=== PATIENT | female | born 1955 | race Caucasian/White ===

== ENCOUNTER 2016-06-17 17:32 | Emergency (ER) | payer MEDICARE, OTHER ==
[~2016-06-17 17:32] MED LIST: /AMLO25TA PO; /CLOT10TR; /FENO48TA PO; /MOXI40TA PO; /PANT40TA PO; /PIME1CR30 TOP; /WARF2TA OR; /WARF2TA PO; ACET50TA PO; ACET65TA OR; ALBU0.084 INH; ALDA25TA2 PO; AMBI5TAB PO; ASPI1TAB PO; ASPI81CH PO; ASPI81TA7 PO; ATEN50TA2 PO; ATENPOW PO; ATOR1TAB18 PO; ATROVENT0.02%; BACL10TA2; BACT2CRE; BACTROBAN; CALC500C2 PO; CALC600T21 PO; CALCIUM/VITAMIN D; CALCTAB68 PO; CEFT500T; DOCU10CA PO; DRIS1CAP PO; DRIS50002 PO; DULC10SU9 PR; ERYTHROMYCI1; FENO145T PO; FERR325T PO; FURO20TA2 PO; FURO40TA2 PO; HYDROCORTISONE0.5 %; IMDU60TA PO; ISOS60TA2 PO; KEFL500C7 PO; LASI40TA PO; LISI10TA4 PO; LISI5TAB; MAG-TAB; MILKSUS PO; MIRA3350 PO; MOM30SS PO; MULTCAP PO; MULTIVIT; MULTLIQ7 PO; NITR0.4S; NITR4TASL SL; NORT25CA2 PO; NORV5TAB PO; OMEP20CA3 PO; OMEP40CA2 PO; OXYB5TA PO; OXYB5TAB5 PO; OXYBPOW PO; PARO10TA84 PO; PARO40TA PO; PAXI40TA; PAXI40TA2 PO; PROV90AE; SIMV80TA PO; SOMINEX; SPIR25TA2 PO; TENO50TA PO; TOPA25TA10 PO; TRIC145T19; VALT1TAB PO; VICO5TAB; VITAMIN D50000 UNT; WARF4TAB51 PO; ZEST10TA4 PO; ZOCO80TA; ZOCO80TA PO; ZOLP-189 PO; ZYLE0.5S OD; [UNRECOGNIZED DRUG - CODE] OU; [UNRECOGNIZED DRUG - CODE] PR
--- NOTE | 2016-06-17 20:21 | EDDOCDS ---
Nurse's Notes [facility] Name: Ngozi Tubbs Age: 60 yrs Sex: Female : 1955 Arrival Date: 06/17/2016 Time: 17:32 Bed 7 Private MD: Diagnosis: Adverse effect of unspecified antipsychotics and neuroleptics-visual hallucinations due to Topamax Presentation: 06/17 17:40 Presenting complaint: EMS states: upper and lower extremity tremors for "months if not kc3 year worsening today.". Mental Health Triage Level: Not applicable. Adult Sepsis Screening: Status: Patient is not a card services specialist or dependent. Transition of care: patient was not received from another setting of care. 17:40 Acuity: VENU Level 3 [facility] 17:40 Method Of Arrival: Ambulance [facility] 17:58 Adult Sepsis Screening: The patient does not have new or worsening altered mentation. kc3 Patient's respiratory rate is less than 22. Systolic blood pressure is greater than 100. Patient has a qSOFA score of 0- Negative Sepsis Screen. Suicide/Homicide risk assessment- the patient denies having any suicidal and/or homicidal ideations and does not present with any other emotional, behavioral or mental health complaints. Triage Assessment: 18:00 General: Appears in no apparent distress, comfortable, Behavior is appropriate for age, kc3 cooperative, Pt ambulated to restroom with walker with no distress and back to bed. . Pain: Denies pain. HIV screening NA for this visit Offered previously. Neurological: Level of Consciousness is awake, alert, obeys commands, Oriented to person, place, time, Reports chronic hand tremors worsening today. . Cardiovascular: Capillary refill < 3 seconds. Respiratory: Respiratory effort is even, unlabored. Derm: Skin is pink, warm & dry. Musculoskeletal: Circulation, motion, and sensation intact. Historical: - Allergies: Morphine (Vomit); - Home Meds: 1. nortriptyline 25 mg Oral cap daily 2. Vitamin D2 oral 1.25mg oral once wkly 3. spironolactone 12.5 mg Oral once daily 4. Lasix 40 mg Oral tab 1 tab once daily 5. Calcium + Vitamin D 600mg-400mg Oral 6. topiramate 25 mg oral tab 2 tabs 2 times per day 7. cyanocobalamin (vitamin B-12) 1,000 mcg/mL injection kit 1 mL once moly 8. ferrous sulfate 325 mg (65 mg iron) Oral cpER twice a day 9. oxybutynin chloride 5 mg Oral tab 1 tab 2 times per day 10. paroxetine HCl 50 mg Oral tab 1 tab once daily 11. Valtrex 500 mg Oral tab 1 tab three times a day 12. atorvastatin 80 mg oral tab 1 tab once daily 13. omeprazole 40 mg Oral cpDR 1 cap 2 times per day 14. isosorbide mononitrate 60 mg Oral Tb24 1 tab once daily 15. atenolol 50 mg Oral tab nightly 16. fenofibrate 145mg oral once daily 17. warfarin 2 mg Oral tab 1 tab once daily 18. thera tears every hour 19. Zylet 0.3-0.5 % ophthalmic drps 1 drop twice a day 20. aspirin 81 mg Oral TbEC 1 tab once daily 21. Oxygen 2 liters /min continuous 22. Tobramycin Opht as directed - PMHx: coronary atherosclerosis; Depression; GERD; hyperlipidemia; hypoxemia; Myocardial infarction; Osteoporosis; Pneumonia; seborrheic dermatitis; sleep apnea; Sleep Apnea w/o CPAP; Stroke; thrombosis of leg; - PSHx: laryngoplasty; Skin Graft; Knee surgery- Left; Left leg arterial embolectomy; thyroplasty; gastrostomy; - The history from nurses notes was reviewed: and I agree with what is documented. - Social history: Smoking status: Patient states former smoker of tobacco. No barriers to communication noted, The patient speaks fluent Hebrew, Speaks appropriately for age. - : The pt / caregiver states he / she is on anticoagulants: coumadin. Home medication list is obtained from pill bottles. - Exposure Risk Screening:: None identified. - Immunization history:: All immunizations up-to-date. - Family history: Not pertinent. - Social history:: the patient is a non-smoker, the patient does not drink alcohol. Screenin:54 Screening information is obtained from the patient. Fall risk: At risk due to gait jmk disturbance from trremors. Assistance ADL's: Requires assistance with housework, assistance is provided by Home Health Aides. Abuse/DV Screen: The patient / caregiver reports he/she is: not in a situation that causes fear, pain or injury. Nutritional screening: No deficits noted. Advance Directives: Currently, there is a health care proxy, talha acuna, daughter. There is no active DNR order. There is no living will. There is no Power of Workforce Planner. home support is adequate. Assessment: 18:01 General: See triage note. . kc3 18:43 General: Appears in no apparent distress, comfortable, Behavior is appropriate for age, kc3 cooperative, Pt resting on stretcher with no complaints at this time. . Neurological: Level of Consciousness is awake, alert, obeys commands, Oriented to person, place, time. Respiratory: Respiratory effort is even, unlabored, Respiratory pattern is regular, symmetrical. Derm: Skin is intact, is healthy with good turgor. 19:20 General: Appears in no apparent distress, comfortable, Behavior is appropriate for age, mgs cooperative. Pain: Denies pain. Neurological: Level of Consciousness is awake, alert, Oriented to person, place, time. Cardiovascular: Capillary refill < 3 seconds Heart tones S1 S2 present. Respiratory: Airway is patent Respiratory effort is even, unlabored, Respiratory pattern is regular, symmetrical. Derm: Skin is intact, is healthy with good turgor. 19:42 Adult Sepsis Screening: The patient does not have new or worsening altered mentation. mgs Patient's respiratory rate is less than 22. Systolic blood pressure is greater than 100. 19:43 Adult Sepsis Screening: Patient has a qSOFA score of 0- Negative Sepsis Screen. mgs 20:20 General: Appears in no apparent distress, Behavior is appropriate for age, cooperative. mgs Pain: Denies pain. Neurological: Level of Consciousness is awake, alert, Oriented to person, place, time. Cardiovascular: Capillary refill < 3 seconds Heart tones S1 S2 present. Respiratory: Airway is patent Respiratory effort is even, unlabored, Respiratory pattern is regular, symmetrical. Derm: Skin is intact, is healthy with good turgor. Vital Signs: 17:53 BP 126 / 76; Pulse 93; Resp 18; Temp 98.7(O); Pulse Ox 98% 2 lpm ; Weight 86.18 kg; jmk Height 5 ft. 6 in. (167.64 cm); 19:24 BP 123 / 72; Pulse 75; Resp 20; Temp 97.9(O); Pulse Ox 94% on 2 lpm NC; Pain 0/10; jmv 19:51 BP 119 / 62; Pulse 82; Resp 18; Temp 98.0(T); Pulse Ox 91% on R/A; Pain 0/10; franki 17:53 Body Mass Index 30.67 (86.18 kg, 167.64 cm) [facility] Vitals: 17:53 Log In Time N/A - ambulance arrival. [facility] ED Course: 17:33 Patient visited by Annamaria Galarza, Lift Slab Operator. deg 17:33 Patient moved to Waiting deg 17:34 Yessi Rosales RN is Primary Nurse. deg 17:34 Patient moved to 7 deg 17:42 Triage Initiated kc3 17:54 The patient / caregiver is instructed regarding the plan of care and ED course. jmk 18:34 Patient visited by Silke Yeh PCA. franki 19:07 Kody Burns MD is Attending Physician. pc 19:20 Patient visited by Goran Up RN. mgs 19:25 Patient visited by Maurizio Carrillo PCA. jmv 19:30 Patient visited by Kody Burns MD. pc 19:46 Myla Witt MD is Referral Physician. pc 19:51 Patient visited by Silke Yeh PCA. franki 20:12 Primary Nurse role handed off by Yessi Rosalse RN franki 20:19 Goran Up RN is Primary Nurse. mgs 20:19 No IV's were initiated during this patient's visit. No procedures done that require mgs assistance. Order Results: There are currently no results for this order. Outcome: 19:46 Discharge ordered by Provider. pc 20:19 Discharge Assessment: Patient awake, alert and oriented x 3. No cognitive and/or mgs functional deficits noted. Patient verbalized understanding of disposition instructions. patient administered narcotics - no. The following High Risk Discharge criteria are identified: None. Discharged to home via wheelchair. Condition: stable. Discharge instructions given to patient, Instructed on discharge instructions, follow up and referral plans. Demonstrated understanding of instructions, Pt was receptive of discharge instructions/ teaching. No special radiology studies were completed. Property sent home with patient. 20:21 Patient left the ED. mgs Signatures: Kody Burns MD MD pc Murray, Denise, Lift Slab Operator Unit deg [place] RN RN [facility] Silke Yeh PCA DOG TRAINER franki Goran Up RN RN mgs Yessi Rosales,HANNY RN kc3 Maurizio Carrillo, DOG TRAINER DOG TRAINER jmv MTDD
--- NOTE | 2016-06-17 20:21 | EDDOCDS ---
Physician Documentation [facility] Name: Ngozi Tubbs Age: 60 yrs Sex: Female : 1955 Arrival Date: 06/17/2016 Time: 17:32 Bed 7 Private MD: Disposition: 06/17 19:44 Critical Care: Critical care not applicable. pc Disposition: 06/17/16 19:46 Discharged to Home/Self Care. Impression: Adverse effect of unspecified antipsychotics and neuroleptics - visual hallucinations due to Topamax. - Condition is Stable. - Discharge Instructions: Psychosis. - Medication Reconciliation, Local Pharmacy Hours form. - Follow up: Myla Witt MD; When: Call to arrange an appointment; Reason: To establish care. - Problem is new. - Symptoms are unchanged. - Notes: You are to cut your Topamax (topirimate) down to 50mg once daily HPI: 19:31 This 60 yrs old Female presents to ER via Ambulance with complaints of pc "seeing things". 19:31 The history is obtained from the patient. For the past 2-3 days, she has started to see pc things that aren't there, such as complimenting her aid about her earrings when she was not wearing them, talking ot her aid and asking why she was using her computer when she wasn't actually there. She denies any headache but says she has felt very anxious and shaky since she started seeing things. She denies nay fevers or chills, cough, abd. pain or any other complaints. She does not know if she is on any new medications but was admitted for intractable migraines last week. (Her EMR shows she was started on Topamax). The patient has not experienced similar symptoms in the past. The patient has been recently been admitted at [facility]. Historical: - Allergies: Morphine (Vomit); - Home Meds: 1. nortriptyline 25 mg Oral cap daily 2. Vitamin D2 oral 1.25mg oral once wkly 3. spironolactone 12.5 mg Oral once daily 4. Lasix 40 mg Oral tab 1 tab once daily 5. Calcium + Vitamin D 600mg-400mg Oral 6. topiramate 25 mg oral tab 2 tabs 2 times per day 7. cyanocobalamin (vitamin B-12) 1,000 mcg/mL injection kit 1 mL once moly 8. ferrous sulfate 325 mg (65 mg iron) Oral cpER twice a day 9. oxybutynin chloride 5 mg Oral tab 1 tab 2 times per day 10. paroxetine HCl 50 mg Oral tab 1 tab once daily 11. Valtrex 500 mg Oral tab 1 tab three times a day 12. atorvastatin 80 mg oral tab 1 tab once daily 13. omeprazole 40 mg Oral cpDR 1 cap 2 times per day 14. isosorbide mononitrate 60 mg Oral Tb24 1 tab once daily 15. atenolol 50 mg Oral tab nightly 16. fenofibrate 145mg oral once daily 17. warfarin 2 mg Oral tab 1 tab once daily 18. thera tears every hour 19. Zylet 0.3-0.5 % ophthalmic drps 1 drop twice a day 20. aspirin 81 mg Oral TbEC 1 tab once daily 21. Oxygen 2 liters /min continuous 22. Tobramycin Opht as directed - PMHx: coronary atherosclerosis; Depression; GERD; hyperlipidemia; hypoxemia; Myocardial infarction; Osteoporosis; Pneumonia; seborrheic dermatitis; sleep apnea; Sleep Apnea w/o CPAP; Stroke; thrombosis of leg; - PSHx: laryngoplasty; Skin Graft; Knee surgery- Left; Left leg arterial embolectomy; thyroplasty; gastrostomy; - The history from nurses notes was reviewed: and I agree with what is documented. - Social history: Smoking status: Patient states former smoker of tobacco. No barriers to communication noted, The patient speaks fluent Australian, Speaks appropriately for age. - : The pt / caregiver states he / she is on anticoagulants: coumadin. Home medication list is obtained from pill bottles. - Exposure Risk Screening:: None identified. - Immunization history:: All immunizations up-to-date. - Family history: Not pertinent. - Social history:: the patient is a non-smoker, the patient does not drink alcohol. ROS: 19:31 All systems are negative except as listed. pc Exam: 19:31 General Appearance: no acute distress, alert. pc 19:31 EENT: normal eye inspection, ears, nose and throat normal, pharynx normal, mucous membranes moist 19:31 Neck: The exam reveals no acute abnormalities. ROM is normal and painless. No nuchal rigidity is noted.. 19:31 Respiratory: no respiratory distress, normal breath sounds. 19:31 CVS: regular pulse rate, regular rhythm, normal S1 and S2, no murmurs, strong peripheral pulses. 19:31 Abdomen: soft, non-tender, no organomegaly, normal bowel sounds. 19:31 Back: normal inspection. 19:31 Skin: skin color is normal, warm, dry. 19:31 Extremities: The extremities have a grossly normal appearance. 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 19:31 Psych: normal mood. Vital Signs: 17:53 BP 126 / 76; Pulse 93; Resp 18; Temp 98.7(O); Pulse Ox 98% 2 lpm ; Weight 86.18 kg / jmk 189.99 lbs; Height 5 ft. 6 in. (167.64 cm); 19:24 BP 123 / 72; Pulse 75; Resp 20; Temp 97.9(O); Pulse Ox 94% on 2 lpm NC; Pain 0/10; jmv 19:51 BP 119 / 62; Pulse 82; Resp 18; Temp 98.0(T); Pulse Ox 91% on R/A; Pain 0/10; franki 17:53 Body Mass Index 30.67 (86.18 kg, 167.64 cm) [facility] MDM: 19:31 Differential Diagnosis: visual hallucinations, anxiety suspect medication induced. pc Plan: d/w Neurology. 19:44 Data reviewed: old medical records, vital signs, nurses notes. Test interpretation: pc none. The patient has been re-examined and re-evaluated. There is no appreciated change of the patient's symptoms at this time. Physician consultation: Dr. Myla Witt MD was contacted at 19:44, regarding patient's condition, and advises the medications/treatment as provided. and agrees with the treatment provided and advises the discharge plans as outlined. Disposition: The historical points, examination findings, and any diagnostic results supporting the provided diagnosis, were discussed with the patient or legal guardian. The need for outpatient follow up with the provider listed on their discharge instructions was discussed. They were encouraged to return to [facility], or the nearest ED, if symptoms worsen/persist, or for any other questions/concerns. Signatures: Kody Burns MD MD pc Sheldon, Matthew, RN RN mgs Rosales,Yessi,RN RN kc3 MTDD
--- NOTE | 2016-06-19 21:21 | EDDOCDS ---
Physician Documentation [facility] Name: Ngozi Tubbs Age: 60 yrs Sex: Female : 1955 Arrival Date: 06/17/2016 Time: 17:32 Bed 7 Private MD: Disposition: 06/17 19:44 Critical Care: Critical care not applicable. pc Disposition: 06/17/16 19:46 Discharged to Home/Self Care. Impression: Adverse effect of unspecified antipsychotics and neuroleptics - visual hallucinations due to Topamax. - Condition is Stable. - Discharge Instructions: Psychosis. - Medication Reconciliation, Local Pharmacy Hours form. - Follow up: Myla Witt MD; When: Call to arrange an appointment; Reason: To establish care. - Problem is new. - Symptoms are unchanged. - Notes: You are to cut your Topamax (topirimate) down to 50mg once daily HPI: 19:31 This 60 yrs old Female presents to ER via Ambulance with complaints of pc "seeing things". 19:31 The history is obtained from the patient. For the past 2-3 days, she has started to see pc things that aren't there, such as complimenting her aid about her earrings when she was not wearing them, talking ot her aid and asking why she was using her computer when she wasn't actually there. She denies any headache but says she has felt very anxious and shaky since she started seeing things. She denies nay fevers or chills, cough, abd. pain or any other complaints. She does not know if she is on any new medications but was admitted for intractable migraines last week. (Her EMR shows she was started on Topamax). The patient has not experienced similar symptoms in the past. The patient has been recently been admitted at [facility]. Historical: - Allergies: Morphine (Vomit); - Home Meds: 1. nortriptyline 25 mg Oral cap daily 2. Vitamin D2 oral 1.25mg oral once wkly 3. spironolactone 12.5 mg Oral once daily 4. Lasix 40 mg Oral tab 1 tab once daily 5. Calcium + Vitamin D 600mg-400mg Oral 6. topiramate 25 mg oral tab 2 tabs 2 times per day 7. cyanocobalamin (vitamin B-12) 1,000 mcg/mL injection kit 1 mL once moly 8. ferrous sulfate 325 mg (65 mg iron) Oral cpER twice a day 9. oxybutynin chloride 5 mg Oral tab 1 tab 2 times per day 10. paroxetine HCl 50 mg Oral tab 1 tab once daily 11. Valtrex 500 mg Oral tab 1 tab three times a day 12. atorvastatin 80 mg oral tab 1 tab once daily 13. omeprazole 40 mg Oral cpDR 1 cap 2 times per day 14. isosorbide mononitrate 60 mg Oral Tb24 1 tab once daily 15. atenolol 50 mg Oral tab nightly 16. fenofibrate 145mg oral once daily 17. warfarin 2 mg Oral tab 1 tab once daily 18. thera tears every hour 19. Zylet 0.3-0.5 % ophthalmic drps 1 drop twice a day 20. aspirin 81 mg Oral TbEC 1 tab once daily 21. Oxygen 2 liters /min continuous 22. Tobramycin Opht as directed - PMHx: coronary atherosclerosis; Depression; GERD; hyperlipidemia; hypoxemia; Myocardial infarction; Osteoporosis; Pneumonia; seborrheic dermatitis; sleep apnea; Sleep Apnea w/o CPAP; Stroke; thrombosis of leg; - PSHx: laryngoplasty; Skin Graft; Knee surgery- Left; Left leg arterial embolectomy; thyroplasty; gastrostomy; - The history from nurses notes was reviewed: and I agree with what is documented. - Social history: Smoking status: Patient states former smoker of tobacco. No barriers to communication noted, The patient speaks fluent Zambian, Speaks appropriately for age. - : The pt / caregiver states he / she is on anticoagulants: coumadin. Home medication list is obtained from pill bottles. - Exposure Risk Screening:: None identified. - Immunization history:: All immunizations up-to-date. - Family history: Not pertinent. - Social history:: the patient is a non-smoker, the patient does not drink alcohol. ROS: 19:31 All systems are negative except as listed. pc Exam: 19:31 General Appearance: no acute distress, alert. pc 19:31 EENT: normal eye inspection, ears, nose and throat normal, pharynx normal, mucous membranes moist 19:31 Neck: The exam reveals no acute abnormalities. ROM is normal and painless. No nuchal rigidity is noted.. 19:31 Respiratory: no respiratory distress, normal breath sounds. 19:31 CVS: regular pulse rate, regular rhythm, normal S1 and S2, no murmurs, strong peripheral pulses. 19:31 Abdomen: soft, non-tender, no organomegaly, normal bowel sounds. 19:31 Back: normal inspection. 19:31 Skin: skin color is normal, warm, dry. 19:31 Extremities: The extremities have a grossly normal appearance. 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 19:31 Psych: normal mood. Vital Signs: 17:53 BP 126 / 76; Pulse 93; Resp 18; Temp 98.7(O); Pulse Ox 98% 2 lpm ; Weight 86.18 kg / jmk 189.99 lbs; Height 5 ft. 6 in. (167.64 cm); 19:24 BP 123 / 72; Pulse 75; Resp 20; Temp 97.9(O); Pulse Ox 94% on 2 lpm NC; Pain 0/10; jmv 19:51 BP 119 / 62; Pulse 82; Resp 18; Temp 98.0(T); Pulse Ox 91% on R/A; Pain 0/10; franki 17:53 Body Mass Index 30.67 (86.18 kg, 167.64 cm) [facility] MDM: 19:31 Differential Diagnosis: visual hallucinations, anxiety suspect medication induced. pc Plan: d/w Neurology. 19:44 Data reviewed: old medical records, vital signs, nurses notes. Test interpretation: pc none. The patient has been re-examined and re-evaluated. There is no appreciated change of the patient's symptoms at this time. Physician consultation: Dr. Myla Witt MD was contacted at 19:44, regarding patient's condition, and advises the medications/treatment as provided. and agrees with the treatment provided and advises the discharge plans as outlined. Disposition: The historical points, examination findings, and any diagnostic results supporting the provided diagnosis, were discussed with the patient or legal guardian. The need for outpatient follow up with the provider listed on their discharge instructions was discussed. They were encouraged to return to [facility], or the nearest ED, if symptoms worsen/persist, or for any other questions/concerns. 20:54 [facility] Payment Agreement was scanned into [employer] and attached to record. zo 20:54 Financial registration complete. zo 06/19 14:29 PCR was scanned into [employer] and attached to record. gb Signatures: Kody Burns MD MD pc Barnhardt, Gloria, Reg Reg Master Bullock Matthew,RN RN mgs Yessi Rosales RN RN kc3 The chart was reviewed and I authenticate all verbal orders and agree with the evaluation and treatment provided.Attachments: 06/17 20:54 [facility] Payment Agreement zo Chart Complete MTDD
--- NOTE | 2016-06-19 21:21 | EDDOCDS ---
Physician Documentation [facility] Name: Ngozi Tubbs Age: 60 yrs Sex: Female : 1955 Arrival Date: 06/17/2016 Time: 17:32 Bed 7 Private MD: Disposition: 06/17 19:44 Critical Care: Critical care not applicable. pc Disposition: 06/17/16 19:46 Discharged to Home/Self Care. Impression: Adverse effect of unspecified antipsychotics and neuroleptics - visual hallucinations due to Topamax. - Condition is Stable. - Discharge Instructions: Psychosis. - Medication Reconciliation, Local Pharmacy Hours form. - Follow up: Myla Witt MD; When: Call to arrange an appointment; Reason: To establish care. - Problem is new. - Symptoms are unchanged. - Notes: You are to cut your Topamax (topirimate) down to 50mg once daily HPI: 19:31 This 60 yrs old Female presents to ER via Ambulance with complaints of pc "seeing things". 19:31 The history is obtained from the patient. For the past 2-3 days, she has started to see pc things that aren't there, such as complimenting her aid about her earrings when she was not wearing them, talking ot her aid and asking why she was using her computer when she wasn't actually there. She denies any headache but says she has felt very anxious and shaky since she started seeing things. She denies nay fevers or chills, cough, abd. pain or any other complaints. She does not know if she is on any new medications but was admitted for intractable migraines last week. (Her EMR shows she was started on Topamax). The patient has not experienced similar symptoms in the past. The patient has been recently been admitted at [facility]. Historical: - Allergies: Morphine (Vomit); - Home Meds: 1. nortriptyline 25 mg Oral cap daily 2. Vitamin D2 oral 1.25mg oral once wkly 3. spironolactone 12.5 mg Oral once daily 4. Lasix 40 mg Oral tab 1 tab once daily 5. Calcium + Vitamin D 600mg-400mg Oral 6. topiramate 25 mg oral tab 2 tabs 2 times per day 7. cyanocobalamin (vitamin B-12) 1,000 mcg/mL injection kit 1 mL once moly 8. ferrous sulfate 325 mg (65 mg iron) Oral cpER twice a day 9. oxybutynin chloride 5 mg Oral tab 1 tab 2 times per day 10. paroxetine HCl 50 mg Oral tab 1 tab once daily 11. Valtrex 500 mg Oral tab 1 tab three times a day 12. atorvastatin 80 mg oral tab 1 tab once daily 13. omeprazole 40 mg Oral cpDR 1 cap 2 times per day 14. isosorbide mononitrate 60 mg Oral Tb24 1 tab once daily 15. atenolol 50 mg Oral tab nightly 16. fenofibrate 145mg oral once daily 17. warfarin 2 mg Oral tab 1 tab once daily 18. thera tears every hour 19. Zylet 0.3-0.5 % ophthalmic drps 1 drop twice a day 20. aspirin 81 mg Oral TbEC 1 tab once daily 21. Oxygen 2 liters /min continuous 22. Tobramycin Opht as directed - PMHx: coronary atherosclerosis; Depression; GERD; hyperlipidemia; hypoxemia; Myocardial infarction; Osteoporosis; Pneumonia; seborrheic dermatitis; sleep apnea; Sleep Apnea w/o CPAP; Stroke; thrombosis of leg; - PSHx: laryngoplasty; Skin Graft; Knee surgery- Left; Left leg arterial embolectomy; thyroplasty; gastrostomy; - The history from nurses notes was reviewed: and I agree with what is documented. - Social history: Smoking status: Patient states former smoker of tobacco. No barriers to communication noted, The patient speaks fluent Czech, Speaks appropriately for age. - : The pt / caregiver states he / she is on anticoagulants: coumadin. Home medication list is obtained from pill bottles. - Exposure Risk Screening:: None identified. - Immunization history:: All immunizations up-to-date. - Family history: Not pertinent. - Social history:: the patient is a non-smoker, the patient does not drink alcohol. ROS: 19:31 All systems are negative except as listed. pc Exam: 19:31 General Appearance: no acute distress, alert. pc 19:31 EENT: normal eye inspection, ears, nose and throat normal, pharynx normal, mucous membranes moist 19:31 Neck: The exam reveals no acute abnormalities. ROM is normal and painless. No nuchal rigidity is noted.. 19:31 Respiratory: no respiratory distress, normal breath sounds. 19:31 CVS: regular pulse rate, regular rhythm, normal S1 and S2, no murmurs, strong peripheral pulses. 19:31 Abdomen: soft, non-tender, no organomegaly, normal bowel sounds. 19:31 Back: normal inspection. 19:31 Skin: skin color is normal, warm, dry. 19:31 Extremities: The extremities have a grossly normal appearance. 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 19:31 Psych: normal mood. Vital Signs: 17:53 BP 126 / 76; Pulse 93; Resp 18; Temp 98.7(O); Pulse Ox 98% 2 lpm ; Weight 86.18 kg / jmk 189.99 lbs; Height 5 ft. 6 in. (167.64 cm); 19:24 BP 123 / 72; Pulse 75; Resp 20; Temp 97.9(O); Pulse Ox 94% on 2 lpm NC; Pain 0/10; jmv 19:51 BP 119 / 62; Pulse 82; Resp 18; Temp 98.0(T); Pulse Ox 91% on R/A; Pain 0/10; franki 17:53 Body Mass Index 30.67 (86.18 kg, 167.64 cm) [facility] MDM: 19:31 Differential Diagnosis: visual hallucinations, anxiety suspect medication induced. pc Plan: d/w Neurology. 19:44 Data reviewed: old medical records, vital signs, nurses notes. Test interpretation: pc none. The patient has been re-examined and re-evaluated. There is no appreciated change of the patient's symptoms at this time. Physician consultation: Dr. Myla Witt MD was contacted at 19:44, regarding patient's condition, and advises the medications/treatment as provided. and agrees with the treatment provided and advises the discharge plans as outlined. Disposition: The historical points, examination findings, and any diagnostic results supporting the provided diagnosis, were discussed with the patient or legal guardian. The need for outpatient follow up with the provider listed on their discharge instructions was discussed. They were encouraged to return to [facility], or the nearest ED, if symptoms worsen/persist, or for any other questions/concerns. 20:54 [facility] [place] Agreement was scanned into [employer] and attached to record. zo 20:54 Financial registration complete. zo 06/19 14:29 PCR was scanned into [employer] and attached to record. gb Signatures: Kody Burns MD MD pc Barnhardt, Gloria, Reg Reg Master Bullock Matthew,RN RN mgs Yessi Rosales RN RN kc3 The chart was reviewed and I authenticate all verbal orders and agree with the evaluation and treatment provided.Attachments: 06/17 20:54 [facility] Payment Agreement zo Chart Complete MTDD
--- NOTE | 2016-06-19 21:22 | EDDOCDS ---
Nurse's Notes [facility] Name: Ngozi Tubbs Age: 60 yrs Sex: Female : 1955 Arrival Date: 06/17/2016 Time: 17:32 Bed 7 Private MD: Diagnosis: Adverse effect of unspecified antipsychotics and neuroleptics-visual hallucinations due to Topamax Presentation: 06/17 17:40 Presenting complaint: EMS states: upper and lower extremity tremors for "months if not kc3 year worsening today.". Mental Health Triage Level: Not applicable. Adult Sepsis Screening: Status: Patient is not a electric refrigerator servicer or dependent. Transition of care: patient was not received from another setting of care. 17:40 Acuity: VENU Level 3 [facility] 17:40 Method Of Arrival: Ambulance [facility] 17:58 Adult Sepsis Screening: The patient does not have new or worsening altered mentation. kc3 Patient's respiratory rate is less than 22. Systolic blood pressure is greater than 100. Patient has a qSOFA score of 0- Negative Sepsis Screen. Suicide/Homicide risk assessment- the patient denies having any suicidal and/or homicidal ideations and does not present with any other emotional, behavioral or mental health complaints. Triage Assessment: 18:00 General: Appears in no apparent distress, comfortable, Behavior is appropriate for age, kc3 cooperative, Pt ambulated to restroom with walker with no distress and back to bed. . Pain: Denies pain. HIV screening NA for this visit Offered previously. Neurological: Level of Consciousness is awake, alert, obeys commands, Oriented to person, place, time, Reports chronic hand tremors worsening today. . Cardiovascular: Capillary refill < 3 seconds. Respiratory: Respiratory effort is even, unlabored. Derm: Skin is pink, warm & dry. Musculoskeletal: Circulation, motion, and sensation intact. Historical: - Allergies: Morphine (Vomit); - Home Meds: 1. nortriptyline 25 mg Oral cap daily 2. Vitamin D2 oral 1.25mg oral once wkly 3. spironolactone 12.5 mg Oral once daily 4. Lasix 40 mg Oral tab 1 tab once daily 5. Calcium + Vitamin D 600mg-400mg Oral 6. topiramate 25 mg oral tab 2 tabs 2 times per day 7. cyanocobalamin (vitamin B-12) 1,000 mcg/mL injection kit 1 mL once moly 8. ferrous sulfate 325 mg (65 mg iron) Oral cpER twice a day 9. oxybutynin chloride 5 mg Oral tab 1 tab 2 times per day 10. paroxetine HCl 50 mg Oral tab 1 tab once daily 11. Valtrex 500 mg Oral tab 1 tab three times a day 12. atorvastatin 80 mg oral tab 1 tab once daily 13. omeprazole 40 mg Oral cpDR 1 cap 2 times per day 14. isosorbide mononitrate 60 mg Oral Tb24 1 tab once daily 15. atenolol 50 mg Oral tab nightly 16. fenofibrate 145mg oral once daily 17. warfarin 2 mg Oral tab 1 tab once daily 18. thera tears every hour 19. Zylet 0.3-0.5 % ophthalmic drps 1 drop twice a day 20. aspirin 81 mg Oral TbEC 1 tab once daily 21. Oxygen 2 liters /min continuous 22. Tobramycin Opht as directed - PMHx: coronary atherosclerosis; Depression; GERD; hyperlipidemia; hypoxemia; Myocardial infarction; Osteoporosis; Pneumonia; seborrheic dermatitis; sleep apnea; Sleep Apnea w/o CPAP; Stroke; thrombosis of leg; - PSHx: laryngoplasty; Skin Graft; Knee surgery- Left; Left leg arterial embolectomy; thyroplasty; gastrostomy; - The history from nurses notes was reviewed: and I agree with what is documented. - Social history: Smoking status: Patient states former smoker of tobacco. No barriers to communication noted, The patient speaks fluent Maltese, Speaks appropriately for age. - : The pt / caregiver states he / she is on anticoagulants: coumadin. Home medication list is obtained from pill bottles. - Exposure Risk Screening:: None identified. - Immunization history:: All immunizations up-to-date. - Family history: Not pertinent. - Social history:: the patient is a non-smoker, the patient does not drink alcohol. Screenin:54 Screening information is obtained from the patient. Fall risk: At risk due to gait jmk disturbance from trremors. Assistance ADL's: Requires assistance with housework, assistance is provided by Home Health Aides. Abuse/DV Screen: The patient / caregiver reports he/she is: not in a situation that causes fear, pain or injury. Nutritional screening: No deficits noted. Advance Directives: Currently, there is a health care proxy, talha acuna, daughter. There is no active DNR order. There is no living will. There is no Power of Foam Caster. home support is adequate. Assessment: 18:01 General: See triage note. . kc3 18:43 General: Appears in no apparent distress, comfortable, Behavior is appropriate for age, kc3 cooperative, Pt resting on stretcher with no complaints at this time. . Neurological: Level of Consciousness is awake, alert, obeys commands, Oriented to person, place, time. Respiratory: Respiratory effort is even, unlabored, Respiratory pattern is regular, symmetrical. Derm: Skin is intact, is healthy with good turgor. 19:20 General: Appears in no apparent distress, comfortable, Behavior is appropriate for age, mgs cooperative. Pain: Denies pain. Neurological: Level of Consciousness is awake, alert, Oriented to person, place, time. Cardiovascular: Capillary refill < 3 seconds Heart tones S1 S2 present. Respiratory: Airway is patent Respiratory effort is even, unlabored, Respiratory pattern is regular, symmetrical. Derm: Skin is intact, is healthy with good turgor. 19:42 Adult Sepsis Screening: The patient does not have new or worsening altered mentation. mgs Patient's respiratory rate is less than 22. Systolic blood pressure is greater than 100. 19:43 Adult Sepsis Screening: Patient has a qSOFA score of 0- Negative Sepsis Screen. mgs 20:20 General: Appears in no apparent distress, Behavior is appropriate for age, cooperative. mgs Pain: Denies pain. Neurological: Level of Consciousness is awake, alert, Oriented to person, place, time. Cardiovascular: Capillary refill < 3 seconds Heart tones S1 S2 present. Respiratory: Airway is patent Respiratory effort is even, unlabored, Respiratory pattern is regular, symmetrical. Derm: Skin is intact, is healthy with good turgor. Social Work Consult: 20:23 Social Work Note: Patient provided with [employer] voucher charged to [facility] to ensure jl safe transport home. PSA advised that she was without transport & has no active Medicaid. Vital Signs: 17:53 BP 126 / 76; Pulse 93; Resp 18; Temp 98.7(O); Pulse Ox 98% 2 lpm ; Weight 86.18 kg; jmk Height 5 ft. 6 in. (167.64 cm); 19:24 BP 123 / 72; Pulse 75; Resp 20; Temp 97.9(O); Pulse Ox 94% on 2 lpm NC; Pain 0/10; jmv 19:51 BP 119 / 62; Pulse 82; Resp 18; Temp 98.0(T); Pulse Ox 91% on R/A; Pain 0/10; franki 17:53 Body Mass Index 30.67 (86.18 kg, 167.64 cm) [facility] Vitals: 17:53 Log In Time N/A - ambulance arrival. [facility] ED Course: 17:33 Patient visited by Annamaria Galarza, Eligibility Services Representative. deg 17:33 Patient moved to Waiting deg 17:34 Yessi Rosales,RN is Primary Nurse. deg 17:34 Patient moved to 7 deg 17:42 Triage Initiated kc3 17:54 The patient / caregiver is instructed regarding the plan of care and ED course. jmk 18:34 Patient visited by Silke Yeh PCA. franki 19:07 Kody Burns MD is Attending Physician. pc 19:20 Patient visited by Goran Up RN. mgs 19:25 Patient visited by Maurizio Carrillo PCA. jmv 19:30 Patient visited by Kdoy Burns MD. pc 19:46 Myla Witt MD is Referral Physician. pc 19:51 Patient visited by Silke Yeh PCA. franki 20:12 Primary Nurse role handed off by Yessi Rosales RN franki 20:19 Goran Up,HANNY is Primary Nurse. mgs 20:19 No IV's were initiated during this patient's visit. No procedures done that require mgs assistance. 20:54 [facility] Payment Agreement was scanned into [employer] and attached to record. zo 06/19 14:29 PCR was scanned into [employer] and attached to record. gb Order Results: There are currently no results for this order. Outcome: 06/17 19:46 Discharge ordered by Provider. pc 20:19 Discharge Assessment: Patient awake, alert and oriented x 3. No cognitive and/or mgs functional deficits noted. Patient verbalized understanding of disposition instructions. patient administered narcotics - no. The following High Risk Discharge criteria are identified: None. Discharged to home via wheelchair. Condition: stable. Discharge instructions given to patient, Instructed on discharge instructions, follow up and referral plans. Demonstrated understanding of instructions, Pt was receptive of discharge instructions/ teaching. No special radiology studies were completed. Property sent home with patient. 20:21 Patient left the ED. mgs Signatures: Kody Burns MD MD pc Annamaria Galarza, Eligibility Services Representative Unit deg [place],RN RN jmk LuhDragan krueger, PSA PSA jl Maria Luisa Salazar, Reg Reg gb Keanu, Silke French, UPHOLSTERY RESTORER UPHOLSTERY RESTORER franki Goran Up,HANNY RN s Yessi Rosales RN RN kc3 Maurizio Carrillo, UPHOLSTERY RESTORER UPHOLSTERY RESTORER jmv Chart Complete MTDD
== END 2016-06-17 20:21 | disposition home or self-care (01) ==
LOC: M ED 17:32
DX: T42.6X5A Adverse effect of other antiepileptic and sedative-hypnotic drugs, initial encounter (principal); X58.XXXA Exposure to other specified factors, initial encounter; Y92.89 Other specified places as the place of occurrence of the external cause; Y93.89 Activity, other specified; Y99.8 Other external cause status; F32.9 Major depressive disorder, single episode, unspecified; I25.10 Atherosclerotic heart disease of native coronary artery without angina pectoris; K21.9 Gastro-esophageal reflux disease without esophagitis; E78.5 Hyperlipidemia, unspecified; I25.2 Old myocardial infarction; M81.0 Age-related osteoporosis without current pathological fracture; L21.9 Seborrheic dermatitis, unspecified; G47.30 Sleep apnea, unspecified; Z86.718 Personal history of other venous thrombosis and embolism; Z87.891 Personal history of nicotine dependence; Z99.81 Dependence on supplemental oxygen; Z79.82 Long term (current) use of aspirin; Z79.899 Other long term (current) drug therapy; Z88.5 Allergy status to narcotic agent

== ENCOUNTER 2016-06-18 16:57 | Emergency (ER) | payer MEDICARE, OTHER ==
[~2016-06-18] VITALS: Ht 167.6 cm; Wt 86.2 kg
[2016-06-18 18:53] LABS: MEAN CORPUSCULAR HEMOGLOBIN 33.4 pg (27.0-33.0); MEAN CORPUSCULAR HGB CONC 31.9 g/dl (32.0-36.5); MEAN CORPUSCULAR VOLUME 104.6 fl (80.0-96.0); RED CELL DISTRIBUTION WIDTH 14.2 % (11.5-14.5); WHITE BLOOD COUNT 8.8 K/mm3 (4.0-10.0)
[2016-06-18 18:59] LABS: AMPHETAMINES LEVEL URINE NEGATIVE (NEGATIVE); BENZODIAZEPINES URINE NEGATIVE (NEGATIVE); COCAINE METABOLITE URINE NEGATIVE (NEGATIVE); CONTROL LINE INT CTR LINE PRESENT; METHADONE URINE NEGATIVE (NEGATIVE); OPIATES URINE NEGATIVE (NEGATIVE); TRICYCLIC ANTIDEPRESS URINE NEGATIVE (NEGATIVE)
[2016-06-18 19:11] LABS: ALBUMIN 4.1 GM/DL (3.2-5.2); ALBUMIN/GLOBULIN RATIO 1.32 (1.00-1.93); ALKALINE PHOSPHATASE 52 U/L (45-117); ALT/SGPT 26 U/L (12-78); ANION GAP 10 MEQ/L (8-16); AST/SGOT 18 U/L (15-37); BILIRUBIN,DIRECT < 0.1 MG/DL (0.0-0.2); BILIRUBIN,TOTAL 0.3 MG/DL (0.2-1.0); BLOOD UREA NITROGEN 23 MG/DL (7-18); CALCIUM LEVEL 8.9 MG/DL (8.5-10.1); CARBON DIOXIDE LEVEL 30 MEQ/L (21-32); CHLORIDE LEVEL 99 MEQ/L (98-107); CREATININE FOR GFR 1.17 MG/DL (0.55-1.02); GLOMERULAR FILTRATION RATE 50.6 (>51); GLUCOSE, FASTING 96 MG/DL (70-105); POTASSIUM SERUM 4.1 MEQ/L (3.5-5.1); SODIUM LEVEL 139 MEQ/L (136-145); TOTAL PROTEIN 7.2 GM/DL (6.4-8.2)
[2016-06-18 19:12] LABS: INR 1.81
[2016-06-18] MEDS ORDERED: OMEPRAZOLE 20 MG CAP As Ordered ONE (19:19)
[2016-06-18] MEDS ORDERED: ATORVASTATIN 20 MG TAB As Ordered ONE (19:19)
[2016-06-18] MEDS ORDERED: valACYclovir HCL 500 MG TAB As Ordered ONE (19:20)
[2016-06-18] MEDS ORDERED: ATENOLOL 25 MG TAB As Ordered ONE (19:20)
[2016-06-18] MEDS ORDERED: oxyBUTYnin 5 MG TAB PO ONE (20:00)
[2016-06-18] MEDS ORDERED: FERROUS SULFATE 325MG TAB PO ONE (20:00)
[2016-06-18] MEDS ORDERED: WARFARIN SOD 2 MG TAB PO ONE (20:00)
[2016-06-19] MEDS ORDERED: valACYclovir HCL 500 MG TAB PO ONE ×2 (09:00→10:00)
[2016-06-19] MEDS ORDERED: TOPIRAMATE (TopAMAX) 25 MG TAB PO ONE (09:00)
[2016-06-19] MEDS ORDERED: oxyBUTYnin 5 MG TAB PO ONE (09:00)
[2016-06-19] MEDS ORDERED: ASPIRIN 81 MG ENTERIC TAB PO ONE (09:00)
[2016-06-19] MEDS ORDERED: PARoxetine 20 MG TAB PO ONE (09:00)
[2016-06-19] MEDS ORDERED: ISOSORBIDE MON. (IMDUR) 60 MG XR TAB PO ONE (09:00)
[2016-06-19] MEDS ORDERED: FUROSEMIDE 40 MG TAB PO ONE (09:00)
[2016-06-19] MEDS ORDERED: NORTRIPTYLINE 25 MG CAP PO ONE (09:00)
[2016-06-19] MEDS ORDERED: SPIRONOLACTONE 12.5MG PER 1/2 TABLET PO ONE (09:00)
--- NOTE | 2016-06-19 14:29 | EDDOCDS ---
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 II GFR >=60 Normal to Mildly Decreased Stage III GFR 30-59 Moderately Decreased Stage IV GFR 15-29 Severely Decreased Stage V GFR <15 Very Little GFR Left ESRD GFR <15 on ELECTRIC ARC WELDER Lab Order: Complete Blood Count; SPEC'M 06/18/16 18:30 Test: WHITE BLOOD COUNT; Value: 8.8; Range: 4.0-10.0; Units: K/mm3; Status: F Test: RED BLOOD COUNT; Value: 4.27; Range: 4.00-5.40; Units: M/mm3; Status: F Test: HEMOGLOBIN; Value: 14.3; Range: 12.0-16.0; Units: g/dl; Status: F Test: HEMATOCRIT; Value: 44.7; Range: 36.0-47.0; Units: %; Status: F Test: MEAN CORPUSCULAR VOLUME; Value: 104.6; Range: 80.0-96.0; Abnormal: Above high normal; Units: fl; Status: F Test: MEAN CORPUSCULAR HEMOGLOBIN; Value: 33.4; Range: 27.0-33.0; Abnormal: Above high normal; Units: pg; Status: F Test: MEAN CORPUSCULAR HGB CONC; Value: 31.9; Range: 32.0-36.5; Abnormal: Below low normal; Units: g/dl; Status: F Test: RED CELL DISTRIBUTION WIDTH; Value: 14.2; Range: 11.5-14.5; Units: %; Status: F Test: PLATELET COUNT, AUTOMATED; Value: 180; Range: 150-450; Units: k/mm3; Status: F Lab Order: Drug Eval Toxicology ED Only; SPEC'M 06/18/16 18:30 Test: AMPHETAMINES LEVEL URINE; Value: NEGATIVE; Range: NEGATIVE; Status: F Test: BARBITURATES URINE; Value: NEGATIVE; Range: NEGATIVE; Status: F Test: BENZODIAZEPINES URINE; Value: NEGATIVE; Range: NEGATIVE; Status: F Test: CANNABINOIDS URINE; Value: NEGATIVE; Range: NEGATIVE; Status: F Test: COCAINE METABOLITE URINE; Value: NEGATIVE; Range: NEGATIVE; Status: F Test: METHADONE URINE; Value: NEGATIVE; Range: NEGATIVE; Status: F Test: OPIATES URINE; Value: NEGATIVE; Range: NEGATIVE; Status: F Test: TRICYCLIC ANTIDEPRESS URINE; Value: NEGATIVE; Range: NEGATIVE; Status: F Test Note: ; ALL PRESUMPTIVE POSITIVE FINDINGS ARE UNCONFIRMED NORMAL VALUES THRESHOLD IN NG/ML AMPHETAMINES 1000 METHAMPHETAMINES 1000 BARBITURATES 300 BENZODIAZEPINES 300 CANNABINOIDS (THC) 50 COCAINE METABOLITE 300 METHADONE 300 OPIATES 300 PHENCYCLIDINE 25 TRICYCLIC ANTIDEPRESSANTS 1000 RESULTS ARE FOR MEDICAL PURPOSES ONLY. ALL URINE SPECIMENS WILL BE SAVED FOR 3 DAYS. IF CONFIRMATION OF A PRESUMPTIVE POSTIVE SCREEN RESULT IS DESIRED, CALL CHEMISTRY ([phone]) AND REQUEST URINE TO BE SENT TO REFERENCE LAB. FOR A LIST OF CLOSELY RELATED COMPOUNDS PLEASE CALL THE LAB. Lab Order: Ethyl Alcohol (ethanol); SPEC'M 06/18/16 18:30 Test: ETHYL ALCOHOL (ETHANOL); Value: < 0.003; Range: 0.000-0.010; Units: %; Status: F Lab Order: Liver Profile; SPEC'M 06/18/16 18:30 Test: AST/SGOT; Value: 18; Range: 15-37; Units: U/L; Status: F Test: ALT/SGPT; Value: 26; Range: 12-78; Units: U/L; Status: F Test: ALKALINE PHOSPHATASE; Value: 52; Range: 45-117; Units: U/L; Status: F Test: BILIRUBIN,TOTAL; Value: 0.3; Range: 0.2-1.0; Units: MG/DL; Status: F Test: BILIRUBIN,DIRECT; Value: < 0.1; Range: 0.0-0.2; Units: MG/DL; Status: F Test: TOTAL PROTEIN; Value: 7.2; Range: 6.4-8.2; Units: GM/DL; Status: F Test: ALBUMIN; Value: 4.1; Range: 3.2-5.2; Units: GM/DL; Status: F Test: ALBUMIN/GLOBULIN RATIO; Value: 1.32; Range: 1.00-1.93; Status: F Lab Order: Salicylate Level; SPEC'M 06/18/16 18:30 Test: SALICYLATE LEVEL; Value: < 1.7; Range: 5.0-30.0; Abnormal: Below low normal; Units: MG/DL; Status: F Lab Order: Thyroid Stimulating Hormone; SPEC'M 06/18/16 18:30 Test: THYROID STIMULATING HORMONE; Value: 1.780; Range: 0.358-3.740; Units: uIU/ML; Status: F Lab Order: PT/INR; SPEC'M 06/18/16 18:30 Test: PROTHROMBIN TIME; Value: 21.1; Range: 12.3-14.5; Abnormal: Above high normal; Units: SECONDS; Status: F Test: INR; Value: 1.81; Status: F Test Note: ; THERAPUTIC HUMAN INR VALUES INDICATIONS NORMAL RANGES PROPHYLAXIS/TREATMENT OF: VENOUS THROMBOSIS 2.0-3.0 PULMONARY EMBOLISM 2.0-3.0 PREVENTION OF SYSTEMIC EMBOLISM FROM: TISSUE HEART VALVES 2.0-3.0 ACUTE MYOCARDIAL INFARCTION 2.0-3.0 VALVULAR HEART DISEASE 2.0-3.0 ATRIAL FIBRILLATION 2.0-3.0 MECHANICAL VALVES(HIGH RISK) 2.5-3.5 RECURRENT MYOCARDIAL INFARCTION 2.5-3.5 Lab Order: PTT; SPEC'M 06/18/16 18:30 Test: PARTIAL THROMBOPLASTIN TIME; Value: 29.7; Range: 26.6-37.1; Units: SECONDS; Status: F Outcome: 11:25 ER care complete, transfer ordered by Provider. sd1 14:25 Discharge Assessment: Patient awake, alert and oriented x 3. No cognitive and/or mk4 functional deficits noted. Patient verbalized understanding of disposition instructions. Patient awake and alert. Discharge Assessment: patient administered narcotics - no. The following High Risk Discharge criteria are identified: Yes. Transferred to [place] . by EMS ground report to accompanying personnel Kassi DOYLE. Condition: good. No special radiology studies were completed. Property left with pt per JULES GAMINO. 14:28 Patient left the ED. gr2 Signatures: Kody Burns MD MD pc Delaney-Rowland, Sarah, MD MD sd1 Jacquelin Sweet MD MD ml Hermelinda Dickerson, Intern Retail Unit lbd Clay, Leslie Byers, RN RN Apolonia Jiang, PSA PSA ca Hay, Flory, PSA PSA rb Krystle Kapoor RN RN ck1 Steven Easley,WORKFORCE INVESTMENT ACT CAREER MANAGER WORKFORCE INVESTMENT ACT CAREER MANAGER rw1 Esther, Rj, CROSSCUTTER CROSSCUTTER kb5 Ruba, Silke, CROSSCUTTER CROSSCUTTER franki Rashaad Nicole gr2 Caden Hardwick,RN RN Griselda Lilly RN RN mk4 Hiram Noland, CROSSCUTTER CROSSCUTTER jlf Nando Patiño, CROSSCUTTER CROSSCUTTER jrd Ermelinda Kline, CROSSCUTTER CROSSCUTTER rs6 Sola Gale,RN RN cf2 Corrections: (The following items were deleted from the chart) 09:01 06/18 17:20 Home Meds: Valtrex 500 mg Oral tab 1 tab three times a day; donna chen4 06/19 10:41 06/18 17:20 Home Meds: Tobramycin Opht; as directed; donna chen4 MTDD
--- NOTE | 2016-06-19 14:29 | EDDOCDS ---
Physician Documentation [facility] Name: Ngozi Tubbs Age: 60 yrs Sex: Female : 1955 Arrival Date: 06/18/2016 Time: 16:57 Bed OBSERVATION Private MD: Disposition: 06/19/16 11:25 Transfer ordered to [facility]. Diagnosis is Suicidal ideations. - Reason for transfer: Higher level of care. - Accepting physician is Dr. Aviles. - Condition is Stable. - Problem is an acute exacerbation. - Symptoms are unchanged. Historical: - Allergies: Morphine (Vomit); - Home Meds: 1. aspirin 81 mg Oral TbEC 1 tab once daily 2. atenolol 50 mg Oral tab nightly 3. atorvastatin 80 mg oral tab 1 tab once daily 4. Calcium + Vitamin D 600mg-400mg Oral 5. cyanocobalamin (vitamin B-12) 1,000 mcg/mL injection kit 1 mL once moly 6. fenofibrate 145mg oral once daily 7. ferrous sulfate 325 mg (65 mg iron) Oral cpER twice a day 8. isosorbide mononitrate 60 mg Oral Tb24 1 tab once daily 9. Lasix 40 mg Oral tab 1 tab once daily 10. nortriptyline 25 mg Oral cap daily 11. omeprazole 40 mg Oral cpDR 1 cap 2 times per day 12. oxybutynin chloride 5 mg Oral tab 1 tab 2 times per day 13. Oxygen 2 liters /min continuous 14. paroxetine HCl 50 mg Oral tab 1 tab once daily 15. spironolactone 12.5 mg Oral once daily 16. thera tears every hour 17. topiramate 25 mg oral tab 2 tabs 2 times per day 18. Vitamin D2 1.25mg oral once wkly 19. warfarin 2 mg Oral tab 1 tab once daily 20. Zylet 0.3-0.5 % ophthalmic drps 1 drop twice a day 21. Valtrex 1 gram oral tab 1 tab 3 times per day - PMHx: coronary atherosclerosis; Depression; GERD; hyperlipidemia; hypoxemia; Myocardial infarction; Osteoporosis; Pneumonia; seborrheic dermatitis; sleep apnea; Sleep Apnea w/o CPAP; Stroke; thrombosis of leg; - PSHx: laryngoplasty; Skin Graft; Knee surgery- Left; Left leg arterial embolectomy; thyroplasty; gastrostomy; - Social history: Smoking status: Patient states former smoker of tobacco. No barriers to communication noted, The patient speaks fluent Brazilian, Speaks appropriately for age. - Family history: Not pertinent. - : The pt / caregiver states he / she is on anticoagulants: coumadin. Home medication list is obtained from the patient. - Exposure Risk Screening:: None identified. Vital Signs: 06/18 17:20 BP 113 / 60; Pulse 66; Resp 22; Temp 97.3(O); Pulse Ox 92% on 2 lpm NC; Weight 86.18 kg jmb / 189.99 lbs (R); Height 5 ft. 6 in. (167.64 cm) (R); Pain 0/10; 19:38 BP 128 / 73; Pulse 73; Resp 18; Temp 97.5(O); Pulse Ox 96% on R/A; Pain 0/10; jmb 21:39 BP 99 / 55; Pulse 82; Resp 22; Temp 97.5; Pulse Ox 91% on R/A; Pain 0/10; jmb 21:51 BP 94 / 51 (auto/); jmb 21:51 Pulse 48 MON; Pulse Ox 78% ; jmb 22:16 BP 92 / 50 (auto/); jmb 22:16 Pulse 68 MON; Pulse Ox 80% ; jmb 22:17 Pulse 66 MON; Pulse Ox 87% ; jmb 22:21 BP 107 / 62 (auto/); jmb 22:36 BP 117 / 65 (auto/); Pulse 68; Resp 22; Pulse Ox 91% on 3 lpm NC; jmb 22:59 BP 100 / 59 (auto/); cf2 23:00 Pulse Ox 77% ; cf2 23:29 BP 98 / 55 (auto/); cf2 23:37 Pulse Ox 72% ; cf2 23:59 Pulse Ox 91% ; cf2 23:59 BP 105 / 70 (auto/); cf2 06/19 00:29 Pulse Ox 93% ; cf2 00:29 BP 116 / 65 (auto/); cf2 00:59 Pulse Ox 93% ; cf2 00:59 BP 107 / 69 (auto/); cf2 01:29 Pulse Ox 92% ; cf2 01:29 BP 121 / 61 (auto/); cf2 01:59 Pulse Ox 98% ; cf2 01:59 BP 114 / 62 (auto/); cf2 02:29 BP 122 / 68 (auto/); cf2 02:29 Pulse Ox 98% ; cf2 06:06 BP 106 / 56 LA Sitting; Pulse 68; Resp 20; Temp 98.4(T); Pulse Ox 96% on 2.0 lpm NC; rw1 Pain 0/10; 14:25 BP 114 / 58; Pulse 77; Resp 20; Temp 98; Pulse Ox 94% ; mk4 06/18 17:20 Body Mass Index 30.67 (86.18 kg, 167.64 cm) donna MDM: 06/18 18:17 Consult PFS/PSA/Installer Inspector Final ordered. ml 18:17 Consult PFS/PSA/Installer Inspector Final: Patient's case requires discussion with on-call ml Psychiatrist ordered. 18:17 PSA/PFS to call Nursing Material Coordinator, to enter patient data on [place] Safe Act if patient ml involuntarily admitted or transferred for SI or HI ordered. 18:17 Confirm accurate psychiatric medication list and times of last dosage ordered. ml 18:17 Detain Pt Until Medically/PFS Cleared ordered. ml 18:18 Acetaminophen Level Ordered. EDMS 18:18 Basic Metabolic Profile Ordered. EDMS 18:18 Complete Blood Count Ordered. EDMS 18:18 Drug Eval Toxicology ED Only Ordered. EDMS 18:18 Ethyl Alcohol (ethanol) Ordered. EDMS 18:18 Liver Profile Ordered. EDMS 18:18 Salicylate Level Ordered. EDMS 18:18 Thyroid Stimulating Hormone Ordered. EDMS 18:43 Misc. Nursing Order ordered. ml 18:43 PT/INR Ordered. EDMS 18:43 PTT Ordered. EDMS 19:13 Atenolol 50 mg PO once ordered. jmb 19:13 Atorvastatin 80 mg PO once ordered. jmb 19:13 Ferrous Sulfate 325 mg PO once ordered. jmb 19:13 omeprazole Delayed Release Capsule 40 mg PO once; swallow whole (do not crush or chew) jmb OR open capsule, sprinkle contents over tablespoonful applesauce; swallow all immediately/do not chew pellets ordered. 19:13 Oxybutynin 5 mg PO once ordered. jmb 19:13 valACYclovir 500 mg PO once ordered. jmb 19:13 Warfarin 2 mg PO once ordered. jmb 19:31 Financial registration complete. gjb 20:31 Acetaminophen Level Reviewed. ml 20:31 Basic Metabolic Profile Reviewed. ml 20:31 Complete Blood Count Reviewed. ml 20:31 Salicylate Level Reviewed. ml 20:31 PT/INR Reviewed. ml 20:31 Drug Eval Toxicology ED Only Reviewed. ml 20:31 Ethyl Alcohol (ethanol) Reviewed. ml 20:31 Liver Profile Reviewed. ml 20:31 Thyroid Stimulating Hormone Reviewed. ml 20:31 PTT Reviewed. ml 06/19 02:03 Consult PFS/PSA/Installer Inspector Final complete. rb 02:04 Consult PFS/PSA/Installer Inspector Final: Patient's case requires discussion with on-call rb Psychiatrist complete. 02:04 PSA/PFS to call Nursing Material Coordinator, to enter patient data [place] Safe [place] if patient rb involuntarily admitted or transferred for SI or HI complete. 04:15 REGULAR DIET PLASTIC DURAN+DIET ordered. EDMS 05:27 ECG WITH READING ER PHYS+CARDIAG ordered. EDMS 05:41 Awaiting: The patient is awaiting psychiatric admission or transfer. All labs and pc investigations have been reviewed. The vital signs have been reviewed. The patient remains medically cleared for disposition. 05:41 Test interpretation: EKG. pc 08:26 Aspirin Delayed Release Tablet 81 mg PO once ordered. mk4 08:26 Fenofibrate Nanocrystallized 145 mg PO once; swallow whole; do not crush, chew, break, mk4 dissolve, or cut ordered. 08:26 Isosorbide Mononitrate 60 mg PO once ordered. mk4 08:26 Furosemide 40 mg PO once ordered. mk4 08:27 Nortriptyline 25 mg PO once ordered. mk4 08:28 Oxybutynin 5 mg PO once ordered. mk4 08:30 PARoxetine 50 mg PO once ordered. mk4 08:30 Spironolactone 12.5 mg PO once ordered. mk4 08:30 Topiramate 25 mg PO once ordered. mk4 08:35 omeprazole Delayed Release Capsule 20 mg PO once; swallow whole; do not crush/chew/cut mk4 OR may open and sprinkle contents over spoonful of applesauce; swallow all immediately/do not chew pellets ordered. 09:02 valACYclovir 1000 mg PO once ordered. mk4 10:40 Zylet Drops 0.3 %-0.5 % 1 drps Ophthalmic once; right eye twice a day pt may take own mk4 from locker ordered. 11:19 REGULAR DIET PLASTIC DURAN+DIET ordered. EDMS EC:41 Rate is 64 beats/min. Rhythm is regular, Normal Sinus Rhythm with 1st degree heart pc block. QRS Schlater is Normal. CA interval is prolonged at 211 msec. QRS interval is normal. QT interval is normal. Q waves are Old in leads II, III, aVF. T waves are Normal. No ST changes noted. Clinical impression: Normal Sinus Rhythm, 1st degree heart block, Anterior [place] - age indeterminate, and Inferior [place] - age indeterminate. No change from previous ECG on June 05, 2016. Administered Medications: 06/18 19:39 Drug: Atenolol 50 mg [atenolol 25 mg tablet (2 tabs)] Route: PO; b :39 Drug: Atorvastatin 80 mg [atorvastatin 20 mg tablet (4 tabs)] Route: PO; b 19:39 Drug: omeprazole 40 mg [omeprazole 20 mg capsule,delayed release (2 caps)] Route: PO; b 19:39 Drug: valACYclovir 500 mg [valacyclovir 500 mg tablet (1 tabs)] Route: PO; b 20:31 Drug: Ferrous Sulfate 325 mg Route: PO; jmb 20:31 Drug: Oxybutynin 5 mg [oxybutynin chloride 5 mg tablet (1 tabs)] Route: PO; jmb 20:31 Drug: Warfarin 2 mg [warfarin 2 mg tablet (1 tabs)] Route: PO; jmb 06/19 08:34 CANCELLED (Duplicate Order): omeprazole Delayed Release Capsule 40 mg PO once; swallow mk4 whole (do not crush or chew) OR open capsule, sprinkle contents over tablespoonful applesauce; swallow all immediately/do not chew pellets 09:01 CANCELLED (Duplicate Order): valACYclovir 500 mg PO once mk4 09:49 Drug: Nortriptyline 25 mg Route: PO; mk4 09:49 Drug: Oxybutynin 5 mg Route: PO; mk4 09:49 Drug: PARoxetine 50 mg [paroxetine 10 mg tablet (5 tabs)] Route: PO; mk4 09:49 Drug: Spironolactone 12.5 mg Route: PO; mk4 09:49 Drug: Topiramate 25 mg Route: PO; mk4 09:49 Drug: omeprazole Delayed Release Capsule 20 mg Route: PO; mk4 09:50 Drug: Aspirin Delayed Release Tablet 81 mg Route: PO; 4 09:50 Drug: Fenofibrate Nanocrystallized 145 mg Route: PO; mk4 09:50 Drug: Isosorbide Mononitrate 60 mg Route: PO; mk4 09:50 Drug: Furosemide 40 mg [furosemide 20 mg tablet (2 tabs)] Route: PO; mk4 10:39 Drug: valACYclovir 1000 mg [valacyclovir 500 mg tablet (2 tabs)] Route: PO; mk4 10:40 Drug: Zylet Drops 0.3 %-0.5 % 1 drps Route: Ophthalmic; Site: right eye; 4 Signatures: Dispatcher [employer] EDMS Kody Burns MD MD pc Delaney-Rowland, Sarah, MD MD sd1 Jacquelin Sweet MD MD ml Guido, Flory, PSA PSA rb Rashaad Nicole gr2 Caden Hardwick RN RN jmb King, Margaret, RN RN mk4 Beck, Gabriela gjb The chart was reviewed and I authenticate all verbal orders and agree with the evaluation and treatment provided.Corrections: (The following items were deleted from the chart) 08:34 08:28 omeprazole Delayed Release Capsule 40 mg PO once; swallow whole (do not crush or mk4 chew) OR open capsule, sprinkle contents over tablespoonful applesauce; swallow all immediately/do not chew pellets ordered. Alireza 09:06/18 17:20 Home Meds: Valtrex 500 mg Oral tab 1 tab three times a day; donna Alireza 06/19 09:01 08:30 valACYclovir 500 mg PO once ordered. [place] [id number] 10:41 06/18 17:20 Home Meds: Tobramycin Opht; as directed; donna [facility] MTDD
--- NOTE | 2016-06-19 19:54 | ECGEPIP ---
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
--- NOTE | 2016-06-21 15:29 | EDDOCDS ---
Physician Documentation [facility] Name: Ngozi Tubbs Age: 60 yrs Sex: Female : 1955 Arrival Date: 06/18/2016 Time: 16:57 Bed OBSERVATION Private MD: Disposition: 06/19/16 11:25 Transfer ordered to [facility] / [facility]. Diagnosis is Suicidal ideations. - Reason for transfer: Higher level of care. - Accepting physician is Dr. Aviles. - Condition is Stable. - Problem is an acute exacerbation. - Symptoms are unchanged. Historical: - Allergies: Morphine (Vomit); - Home Meds: 1. aspirin 81 mg Oral TbEC 1 tab once daily 2. atenolol 50 mg Oral tab nightly 3. atorvastatin 80 mg oral tab 1 tab once daily 4. Calcium + Vitamin D 600mg-400mg Oral 5. cyanocobalamin (vitamin B-12) 1,000 mcg/mL injection kit 1 mL once moly 6. fenofibrate 145mg oral once daily 7. ferrous sulfate 325 mg (65 mg iron) Oral cpER twice a day 8. isosorbide mononitrate 60 mg Oral Tb24 1 tab once daily 9. Lasix 40 mg Oral tab 1 tab once daily 10. nortriptyline 25 mg Oral cap daily 11. omeprazole 40 mg Oral cpDR 1 cap 2 times per day 12. oxybutynin chloride 5 mg Oral tab 1 tab 2 times per day 13. Oxygen 2 liters /min continuous 14. paroxetine HCl 50 mg Oral tab 1 tab once daily 15. spironolactone 12.5 mg Oral once daily 16. thera tears every hour 17. topiramate 25 mg oral tab 2 tabs 2 times per day 18. Vitamin D2 1.25mg oral once wkly 19. warfarin 2 mg Oral tab 1 tab once daily 20. Zylet 0.3-0.5 % ophthalmic drps 1 drop twice a day 21. Valtrex 1 gram oral tab 1 tab 3 times per day - PMHx: coronary atherosclerosis; Depression; GERD; hyperlipidemia; hypoxemia; Myocardial infarction; Osteoporosis; Pneumonia; seborrheic dermatitis; sleep apnea; Sleep Apnea w/o CPAP; Stroke; thrombosis of leg; - PSHx: laryngoplasty; Skin Graft; Knee surgery- Left; Left leg arterial embolectomy; thyroplasty; gastrostomy; - Social history: Smoking status: Patient states former smoker of tobacco. No barriers to communication noted, The patient speaks fluent Indian, Speaks appropriately for age. - Family history: Not pertinent. - : The pt / caregiver states he / she is on anticoagulants: coumadin. Home medication list is obtained from the patient. - Exposure Risk Screening:: None identified. Vital Signs: 06/18 17:20 BP 113 / 60; Pulse 66; Resp 22; Temp 97.3(O); Pulse Ox 92% on 2 lpm NC; Weight 86.18 kg jmb / 189.99 lbs (R); Height 5 ft. 6 in. (167.64 cm) (R); Pain 0/10; 19:38 BP 128 / 73; Pulse 73; Resp 18; Temp 97.5(O); Pulse Ox 96% on R/A; Pain 0/10; jmb 21:39 BP 99 / 55; Pulse 82; Resp 22; Temp 97.5; Pulse Ox 91% on R/A; Pain 0/10; jmb 21:51 BP 94 / 51 (auto/); jmb 21:51 Pulse 48 MON; Pulse Ox 78% ; jmb 22:16 BP 92 / 50 (auto/); jmb 22:16 Pulse 68 MON; Pulse Ox 80% ; jmb 22:17 Pulse 66 MON; Pulse Ox 87% ; jmb 22:21 BP 107 / 62 (auto/); jmb 22:36 BP 117 / 65 (auto/); Pulse 68; Resp 22; Pulse Ox 91% on 3 lpm NC; jmb 22:59 BP 100 / 59 (auto/); cf2 23:00 Pulse Ox 77% ; cf2 23:29 BP 98 / 55 (auto/); cf2 23:37 Pulse Ox 72% ; cf2 23:59 Pulse Ox 91% ; cf2 23:59 BP 105 / 70 (auto/); cf2 06/19 00:29 Pulse Ox 93% ; cf2 00:29 BP 116 / 65 (auto/); cf2 00:59 Pulse Ox 93% ; cf2 00:59 BP 107 / 69 (auto/); cf2 01:29 Pulse Ox 92% ; cf2 01:29 BP 121 / 61 (auto/); cf2 01:59 Pulse Ox 98% ; cf2 01:59 BP 114 / 62 (auto/); cf2 02:29 BP 122 / 68 (auto/); cf2 02:29 Pulse Ox 98% ; cf2 06:06 BP 106 / 56 LA Sitting; Pulse 68; Resp 20; Temp 98.4(T); Pulse Ox 96% on 2.0 lpm NC; rw1 Pain 0/10; 14:25 BP 114 / 58; Pulse 77; Resp 20; Temp 98; Pulse Ox 94% ; mk4 06/18 17:20 Body Mass Index 30.67 (86.18 kg, 167.64 cm) donna MDM: 06/18 18:17 Consult PFS/PSA/Tractor Mechanic ordered. ml 18:17 Consult PFS/PSA/Tractor Mechanic: Patient's case requires discussion with on-call ml Psychiatrist ordered. 18:17 PSA/PFS to call Nursing Provider Relations Coordinator, to enter patient data [place] if patient ml involuntarily admitted or transferred for SI or HI ordered. 18:17 Confirm accurate psychiatric medication list and times of last dosage ordered. ml 18:17 Detain Pt Until Medically/PFS Cleared ordered. ml 18:18 Acetaminophen Level Ordered. EDMS 18:18 Basic Metabolic Profile Ordered. EDMS 18:18 Complete Blood Count Ordered. EDMS 18:18 Drug Eval Toxicology ED Only Ordered. EDMS 18:18 Ethyl Alcohol (ethanol) Ordered. EDMS 18:18 Liver Profile Ordered. EDMS 18:18 Salicylate Level Ordered. EDMS 18:18 Thyroid Stimulating Hormone Ordered. EDMS 18:43 Misc. Nursing Order ordered. ml 18:43 PT/INR Ordered. EDMS 18:43 PTT Ordered. EDMS 19:13 Atenolol 50 mg PO once ordered. jmb 19:13 Atorvastatin 80 mg PO once ordered. jmb 19:13 Ferrous Sulfate 325 mg PO once ordered. jmb 19:13 omeprazole Delayed Release Capsule 40 mg PO once; swallow whole (do not crush or chew) jmb OR open capsule, sprinkle contents over tablespoonful applesauce; swallow all immediately/do not chew pellets ordered. 19:13 Oxybutynin 5 mg PO once ordered. jmb 19:13 valACYclovir 500 mg PO once ordered. jmb 19:13 Warfarin 2 mg PO once ordered. jmb 19:31 Financial registration complete. gjb 20:31 Acetaminophen Level Reviewed. ml 20:31 Basic Metabolic Profile Reviewed. ml 20:31 Complete Blood Count Reviewed. ml 20:31 Salicylate Level Reviewed. ml 20:31 PT/INR Reviewed. ml 20:31 Drug Eval Toxicology ED Only Reviewed. ml 20:31 Ethyl Alcohol (ethanol) Reviewed. ml 20:31 Liver Profile Reviewed. ml 20:31 Thyroid Stimulating Hormone Reviewed. ml 20:31 PTT Reviewed. ml 06/19 02:03 Consult PFS/PSA/Tractor Mechanic complete. rb 02:04 Consult PFS/PSA/Tractor Mechanic: Patient's case requires discussion with on-call rb Psychiatrist complete. 02:04 PSA/PFS to call Nursing Provider Relations Coordinator, to [place] if patient rb involuntarily admitted or transferred for SI or HI complete. 04:15 REGULAR DIET PLASTIC DURAN+DIET ordered. EDMS 05:27 ECG WITH READING ER PHYS+CARDIAG ordered. EDMS 05:41 Awaiting: The patient is awaiting psychiatric admission or transfer. All labs and pc investigations have been reviewed. The vital signs have been reviewed. The patient remains medically cleared for disposition. 05:41 Test interpretation: EKG. pc 08:26 Aspirin Delayed Release Tablet 81 mg PO once ordered. mk4 08:26 Fenofibrate Nanocrystallized 145 mg PO once; swallow whole; do not crush, chew, break, mk4 dissolve, or cut ordered. 08:26 Isosorbide Mononitrate 60 mg PO once ordered. mk4 08:26 Furosemide 40 mg PO once ordered. mk4 08:27 Nortriptyline 25 mg PO once ordered. mk4 08:28 Oxybutynin 5 mg PO once ordered. mk4 08:30 PARoxetine 50 mg PO once ordered. mk4 08:30 Spironolactone 12.5 mg PO once ordered. mk4 08:30 Topiramate 25 mg PO once ordered. mk4 08:35 omeprazole Delayed Release Capsule 20 mg PO once; swallow whole; do not crush/chew/cut mk4 OR may open and sprinkle contents over spoonful of applesauce; swallow all immediately/do not chew pellets ordered. 09:02 valACYclovir 1000 mg PO once ordered. mk4 10:40 Zylet Drops 0.3 %-0.5 % 1 drps Ophthalmic once; right eye twice a day pt may take own mk4 from locker ordered. 11:19 REGULAR DIET PLASTIC DURAN+DIET ordered. EDMS EC:41 Rate is 64 beats/min. Rhythm is regular, Normal Sinus Rhythm with 1st degree heart pc block. QRS [place] is Normal. [place] interval is prolonged at 211 msec. QRS interval is normal. QT interval is normal. Q waves are Old in leads II, III, aVF. T waves are Normal. No ST changes noted. Clinical impression: Normal Sinus Rhythm, 1st degree heart block, Anterior [place] - age indeterminate, and Inferior [place] - age indeterminate. No change from previous ECG on June 05, 2016. Administered Medications: 06/18 19:39 Drug: Atenolol 50 mg [atenolol 25 mg tablet (2 tabs)] Route: PO; b :39 Drug: Atorvastatin 80 mg [atorvastatin 20 mg tablet (4 tabs)] Route: PO; b 19:39 Drug: omeprazole 40 mg [omeprazole 20 mg capsule,delayed release (2 caps)] Route: PO; b 19:39 Drug: valACYclovir 500 mg [valacyclovir 500 mg tablet (1 tabs)] Route: PO; b 20:31 Drug: Ferrous Sulfate 325 mg Route: PO; jmb 20:31 Drug: Oxybutynin 5 mg [oxybutynin chloride 5 mg tablet (1 tabs)] Route: PO; jmb 20:31 Drug: Warfarin 2 mg [warfarin 2 mg tablet (1 tabs)] Route: PO; jmb 06/19 08:34 CANCELLED (Duplicate Order): omeprazole Delayed Release Capsule 40 mg PO once; swallow mk4 whole (do not crush or chew) OR open capsule, sprinkle contents over tablespoonful applesauce; swallow all immediately/do not chew pellets 09:01 CANCELLED (Duplicate Order): valACYclovir 500 mg PO once mk4 09:49 Drug: Nortriptyline 25 mg Route: PO; mk4 09:49 Drug: Oxybutynin 5 mg Route: PO; mk4 09:49 Drug: PARoxetine 50 mg [paroxetine 10 mg tablet (5 tabs)] Route: PO; mk4 09:49 Drug: Spironolactone 12.5 mg Route: PO; mk4 09:49 Drug: Topiramate 25 mg Route: PO; mk4 09:49 Drug: omeprazole Delayed Release Capsule 20 mg Route: PO; mk4 09:50 Drug: Aspirin Delayed Release Tablet 81 mg Route: PO; 4 09:50 Drug: Fenofibrate Nanocrystallized 145 mg Route: PO; mk4 09:50 Drug: Isosorbide Mononitrate 60 mg Route: PO; mk4 09:50 Drug: Furosemide 40 mg [furosemide 20 mg tablet (2 tabs)] Route: PO; mk4 10:39 Drug: valACYclovir 1000 mg [valacyclovir 500 mg tablet (2 tabs)] Route: PO; mk4 10:40 Drug: Zylet Drops 0.3 %-0.5 % 1 drps Route: Ophthalmic; Site: right eye; 4 Signatures: Dispatcher [employer] EDMS Kody Burns MD MD pc Delaney-Rowland, Sarah, MD MD sd1 Jacquelin Sweet MD MD ml Guido, Flory, PSA PSA rb Rashaad Nicole gr2 Caden Hardwick RN RN jmb King, Margaret, RN RN mk4 Beck, Gabriela gjb The chart was reviewed and I authenticate all verbal orders and agree with the evaluation and treatment provided.Corrections: (The following items were deleted from the chart) 08:34 08:28 omeprazole Delayed Release Capsule 40 mg PO once; swallow whole (do not crush or mk4 chew) OR open capsule, sprinkle contents over tablespoonful applesauce; swallow all immediately/do not chew pellets ordered. Alireza 09:06/18 17:20 Home Meds: Valtrex 500 mg Oral tab 1 tab three times a day; donna Alireza 06/19 09:01 08:30 valACYclovir 500 mg PO once ordered. [place] [id number] 10:41 06/18 17:20 Home Meds: Tobramycin Opht; as directed; donna [facility] Chart Complete MTDD
--- NOTE | 2016-06-21 15:29 | EDDOCDS ---
Physician Documentation [facility] Name: Ngozi Tubbs Age: 60 yrs Sex: Female : 1955 Arrival Date: 06/18/2016 Time: 16:57 Bed OBSERVATION Private MD: Disposition: 06/19/16 11:25 Transfer ordered to [facility] / [facility]. Diagnosis is Suicidal ideations. - Reason for transfer: Higher level of care. - Accepting physician is Dr. Aviles. - Condition is Stable. - Problem is an acute exacerbation. - Symptoms are unchanged. Historical: - Allergies: Morphine (Vomit); - Home Meds: 1. aspirin 81 mg Oral TbEC 1 tab once daily 2. atenolol 50 mg Oral tab nightly 3. atorvastatin 80 mg oral tab 1 tab once daily 4. Calcium + Vitamin D 600mg-400mg Oral 5. cyanocobalamin (vitamin B-12) 1,000 mcg/mL injection kit 1 mL once moly 6. fenofibrate 145mg oral once daily 7. ferrous sulfate 325 mg (65 mg iron) Oral cpER twice a day 8. isosorbide mononitrate 60 mg Oral Tb24 1 tab once daily 9. Lasix 40 mg Oral tab 1 tab once daily 10. nortriptyline 25 mg Oral cap daily 11. omeprazole 40 mg Oral cpDR 1 cap 2 times per day 12. oxybutynin chloride 5 mg Oral tab 1 tab 2 times per day 13. Oxygen 2 liters /min continuous 14. paroxetine HCl 50 mg Oral tab 1 tab once daily 15. spironolactone 12.5 mg Oral once daily 16. thera tears every hour 17. topiramate 25 mg oral tab 2 tabs 2 times per day 18. Vitamin D2 1.25mg oral once wkly 19. warfarin 2 mg Oral tab 1 tab once daily 20. Zylet 0.3-0.5 % ophthalmic drps 1 drop twice a day 21. Valtrex 1 gram oral tab 1 tab 3 times per day - PMHx: coronary atherosclerosis; Depression; GERD; hyperlipidemia; hypoxemia; Myocardial infarction; Osteoporosis; Pneumonia; seborrheic dermatitis; sleep apnea; Sleep Apnea w/o CPAP; Stroke; thrombosis of leg; - PSHx: laryngoplasty; Skin Graft; Knee surgery- Left; Left leg arterial embolectomy; thyroplasty; gastrostomy; - Social history: Smoking status: Patient states former smoker of tobacco. No barriers to communication noted, The patient speaks fluent Fijian, Speaks appropriately for age. - Family history: Not pertinent. - : The pt / caregiver states he / she is on anticoagulants: coumadin. Home medication list is obtained from the patient. - Exposure Risk Screening:: None identified. Vital Signs: 06/18 17:20 BP 113 / 60; Pulse 66; Resp 22; Temp 97.3(O); Pulse Ox 92% on 2 lpm NC; Weight 86.18 kg jmb / 189.99 lbs (R); Height 5 ft. 6 in. (167.64 cm) (R); Pain 0/10; 19:38 BP 128 / 73; Pulse 73; Resp 18; Temp 97.5(O); Pulse Ox 96% on R/A; Pain 0/10; jmb 21:39 BP 99 / 55; Pulse 82; Resp 22; Temp 97.5; Pulse Ox 91% on R/A; Pain 0/10; jmb 21:51 BP 94 / 51 (auto/); jmb 21:51 Pulse 48 MON; Pulse Ox 78% ; jmb 22:16 BP 92 / 50 (auto/); jmb 22:16 Pulse 68 MON; Pulse Ox 80% ; jmb 22:17 Pulse 66 MON; Pulse Ox 87% ; jmb 22:21 BP 107 / 62 (auto/); jmb 22:36 BP 117 / 65 (auto/); Pulse 68; Resp 22; Pulse Ox 91% on 3 lpm NC; jmb 22:59 BP 100 / 59 (auto/); cf2 23:00 Pulse Ox 77% ; cf2 23:29 BP 98 / 55 (auto/); cf2 23:37 Pulse Ox 72% ; cf2 23:59 Pulse Ox 91% ; cf2 23:59 BP 105 / 70 (auto/); cf2 06/19 00:29 Pulse Ox 93% ; cf2 00:29 BP 116 / 65 (auto/); cf2 00:59 Pulse Ox 93% ; cf2 00:59 BP 107 / 69 (auto/); cf2 01:29 Pulse Ox 92% ; cf2 01:29 BP 121 / 61 (auto/); cf2 01:59 Pulse Ox 98% ; cf2 01:59 BP 114 / 62 (auto/); cf2 02:29 BP 122 / 68 (auto/); cf2 02:29 Pulse Ox 98% ; cf2 06:06 BP 106 / 56 LA Sitting; Pulse 68; Resp 20; Temp 98.4(T); Pulse Ox 96% on 2.0 lpm NC; rw1 Pain 0/10; 14:25 BP 114 / 58; Pulse 77; Resp 20; Temp 98; Pulse Ox 94% ; mk4 06/18 17:20 Body Mass Index 30.67 (86.18 kg, 167.64 cm) donna MDM: 06/18 18:17 Consult PFS/PSA/Mobile Ui/Ux Designer ordered. ml 18:17 Consult PFS/PSA/Mobile Ui/Ux Designer: Patient's case requires discussion with on-call ml Psychiatrist ordered. 18:17 PSA/PFS to call Nursing Chief Operating Officer, to enter [place] data [place] if patient ml involuntarily admitted or transferred for SI or HI ordered. 18:17 Confirm accurate psychiatric medication list and times of last dosage ordered. ml 18:17 Detain Pt Until Medically/PFS Cleared ordered. ml 18:18 Acetaminophen Level Ordered. EDMS 18:18 Basic Metabolic Profile Ordered. EDMS 18:18 Complete Blood Count Ordered. EDMS 18:18 Drug Eval Toxicology ED Only Ordered. EDMS 18:18 Ethyl Alcohol (ethanol) Ordered. EDMS 18:18 Liver Profile Ordered. EDMS 18:18 Salicylate Level Ordered. EDMS 18:18 Thyroid Stimulating Hormone Ordered. EDMS 18:43 Misc. Nursing Order ordered. ml 18:43 PT/INR Ordered. EDMS 18:43 PTT Ordered. EDMS 19:13 Atenolol 50 mg PO once ordered. jmb 19:13 Atorvastatin 80 mg PO once ordered. jmb 19:13 Ferrous Sulfate 325 mg PO once ordered. jmb 19:13 omeprazole Delayed Release Capsule 40 mg PO once; swallow whole (do not crush or chew) jmb OR open capsule, sprinkle contents over tablespoonful applesauce; swallow all immediately/do not chew pellets ordered. 19:13 Oxybutynin 5 mg PO once ordered. jmb 19:13 valACYclovir 500 mg PO once ordered. jmb 19:13 Warfarin 2 mg PO once ordered. jmb 19:31 Financial registration complete. gjb 20:31 Acetaminophen Level Reviewed. ml 20:31 Basic Metabolic Profile Reviewed. ml 20:31 Complete Blood Count Reviewed. ml 20:31 Salicylate Level Reviewed. ml 20:31 PT/INR Reviewed. ml 20:31 Drug Eval Toxicology ED Only Reviewed. ml 20:31 Ethyl Alcohol (ethanol) Reviewed. ml 20:31 Liver Profile Reviewed. ml 20:31 Thyroid Stimulating Hormone Reviewed. ml 20:31 PTT Reviewed. ml 06/19 02:03 Consult PFS/PSA/Mobile Ui/Ux Designer complete. rb 02:04 Consult PFS/PSA/Mobile Ui/Ux Designer: Patient's case requires discussion with on-call rb Psychiatrist complete. 02:04 PSA/PFS to call Nursing Chief Operating Officer, to [place] if patient rb involuntarily admitted or transferred for SI or HI complete. 04:15 REGULAR DIET PLASTIC DURAN+DIET ordered. EDMS 05:27 ECG WITH READING ER PHYS+CARDIAG ordered. EDMS 05:41 Awaiting: The patient is awaiting psychiatric admission or transfer. All labs and pc investigations have been reviewed. The vital signs have been reviewed. The patient remains medically cleared for disposition. 05:41 Test interpretation: EKG. pc 08:26 Aspirin Delayed Release Tablet 81 mg PO once ordered. mk4 08:26 Fenofibrate Nanocrystallized 145 mg PO once; swallow whole; do not crush, chew, break, mk4 dissolve, or cut ordered. 08:26 Isosorbide Mononitrate 60 mg PO once ordered. mk4 08:26 Furosemide 40 mg PO once ordered. mk4 08:27 Nortriptyline 25 mg PO once ordered. mk4 08:28 Oxybutynin 5 mg PO once ordered. mk4 08:30 PARoxetine 50 mg PO once ordered. mk4 08:30 Spironolactone 12.5 mg PO once ordered. mk4 08:30 Topiramate 25 mg PO once ordered. mk4 08:35 omeprazole Delayed Release Capsule 20 mg PO once; swallow whole; do not crush/chew/cut mk4 OR may open and sprinkle contents over spoonful of applesauce; swallow all immediately/do not chew pellets ordered. 09:02 valACYclovir 1000 mg PO once ordered. mk4 10:40 Zylet Drops 0.3 %-0.5 % 1 drps Ophthalmic once; right eye twice a day pt may take own mk4 from locker ordered. 11:19 REGULAR DIET PLASTIC DURAN+DIET ordered. EDMS EC:41 Rate is 64 beats/min. Rhythm is regular, Normal Sinus Rhythm with 1st degree heart pc block. QRS [place] is Normal. [place] interval is prolonged at 211 msec. QRS interval is normal. QT interval is normal. Q waves are Old in leads II, III, aVF. T waves are Normal. No ST changes noted. Clinical impression: Normal Sinus Rhythm, 1st degree heart block, Anterior [place] - age indeterminate, and Inferior [place] - age indeterminate. No change from previous ECG on June 05, 2016. Administered Medications: 06/18 19:39 Drug: Atenolol 50 mg [atenolol 25 mg tablet (2 tabs)] Route: PO; b :39 Drug: Atorvastatin 80 mg [atorvastatin 20 mg tablet (4 tabs)] Route: PO; b 19:39 Drug: omeprazole 40 mg [omeprazole 20 mg capsule,delayed release (2 caps)] Route: PO; b 19:39 Drug: valACYclovir 500 mg [valacyclovir 500 mg tablet (1 tabs)] Route: PO; b 20:31 Drug: Ferrous Sulfate 325 mg Route: PO; jmb 20:31 Drug: Oxybutynin 5 mg [oxybutynin chloride 5 mg tablet (1 tabs)] Route: PO; jmb 20:31 Drug: Warfarin 2 mg [warfarin 2 mg tablet (1 tabs)] Route: PO; jmb 06/19 08:34 CANCELLED (Duplicate Order): omeprazole Delayed Release Capsule 40 mg PO once; swallow mk4 whole (do not crush or chew) OR open capsule, sprinkle contents over tablespoonful applesauce; swallow all immediately/do not chew pellets 09:01 CANCELLED (Duplicate Order): valACYclovir 500 mg PO once mk4 09:49 Drug: Nortriptyline 25 mg Route: PO; mk4 09:49 Drug: Oxybutynin 5 mg Route: PO; mk4 09:49 Drug: PARoxetine 50 mg [paroxetine 10 mg tablet (5 tabs)] Route: PO; mk4 09:49 Drug: Spironolactone 12.5 mg Route: PO; mk4 09:49 Drug: Topiramate 25 mg Route: PO; mk4 09:49 Drug: omeprazole Delayed Release Capsule 20 mg Route: PO; mk4 09:50 Drug: Aspirin Delayed Release Tablet 81 mg Route: PO; 4 09:50 Drug: Fenofibrate Nanocrystallized 145 mg Route: PO; mk4 09:50 Drug: Isosorbide Mononitrate 60 mg Route: PO; mk4 09:50 Drug: Furosemide 40 mg [furosemide 20 mg tablet (2 tabs)] Route: PO; mk4 10:39 Drug: valACYclovir 1000 mg [valacyclovir 500 mg tablet (2 tabs)] Route: PO; mk4 10:40 Drug: Zylet Drops 0.3 %-0.5 % 1 drps Route: Ophthalmic; Site: right eye; 4 Signatures: Dispatcher [employer] EDMS Kody Burns MD MD pc Delaney-Rowland, Sarah, MD MD sd1 Jacquelin Sweet MD MD ml Guido, Flory, PSA PSA rb Rashaad Nicole gr2 Caden Hardwick RN RN jmb King, Margaret, RN RN mk4 Beck, Gabriela gjb The chart was reviewed and I authenticate all verbal orders and agree with the evaluation and treatment provided.Corrections: (The following items were deleted from the chart) 08:34 08:28 omeprazole Delayed Release Capsule 40 mg PO once; swallow whole (do not crush or mk4 chew) OR open capsule, sprinkle contents over tablespoonful applesauce; swallow all immediately/do not chew pellets ordered. Alireza 09:06/18 17:20 Home Meds: Valtrex 500 mg Oral tab 1 tab three times a day; donna Alireza 06/19 09:01 08:30 valACYclovir 500 mg PO once ordered. [place] [id number] 10:41 06/18 17:20 Home Meds: Tobramycin Opht; as directed; donna [facility] Chart Complete MTDD
--- NOTE | 2016-06-21 15:30 | EDDOCDS ---
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 MG/DL; Status: F Test Note: ; Units are mL/min/1.73 m2 Chronic Kidney Disease Staging per NKF: Stage I & II GFR >=60 Normal to Mildly Decreased Stage III GFR 30-59 Moderately Decreased Stage IV GFR 15-29 Severely Decreased Stage V GFR <15 Very Little GFR Left ESRD GFR <15 on FLEXIBLE MACHINING SYSTEM MACHINIST Lab Order: Complete Blood Count; SPEC'M 06/18/16 18:30 Test: WHITE BLOOD COUNT; Value: 8.8; Range: 4.0-10.0; Units: K/mm3; Status: F Test: RED BLOOD COUNT; Value: 4.27; Range: 4.00-5.40; Units: M/mm3; Status: F Test: HEMOGLOBIN; Value: 14.3; Range: 12.0-16.0; Units: g/dl; Status: F Test: HEMATOCRIT; Value: 44.7; Range: 36.0-47.0; Units: %; Status: F Test: MEAN CORPUSCULAR VOLUME; Value: 104.6; Range: 80.0-96.0; Abnormal: Above high normal; Units: fl; Status: F Test: MEAN CORPUSCULAR HEMOGLOBIN; Value: 33.4; Range: 27.0-33.0; Abnormal: Above high normal; Units: pg; Status: F Test: MEAN CORPUSCULAR HGB CONC; Value: 31.9; Range: 32.0-36.5; Abnormal: Below low normal; Units: g/dl; Status: F Test: RED CELL DISTRIBUTION WIDTH; Value: 14.2; Range: 11.5-14.5; Units: %; Status: F Test: PLATELET COUNT, AUTOMATED; Value: 180; Range: 150-450; Units: k/mm3; Status: F Lab Order: Drug Eval Toxicology ED Only; SPEC'M 06/18/16 18:30 Test: AMPHETAMINES LEVEL URINE; Value: NEGATIVE; Range: NEGATIVE; Status: F Test: BARBITURATES URINE; Value: NEGATIVE; Range: NEGATIVE; Status: F Test: BENZODIAZEPINES URINE; Value: NEGATIVE; Range: NEGATIVE; Status: F Test: CANNABINOIDS URINE; Value: NEGATIVE; Range: NEGATIVE; Status: F Test: COCAINE METABOLITE URINE; Value: NEGATIVE; Range: NEGATIVE; Status: F Test: METHADONE URINE; Value: NEGATIVE; Range: NEGATIVE; Status: F Test: OPIATES URINE; Value: NEGATIVE; Range: NEGATIVE; Status: F Test: TRICYCLIC ANTIDEPRESS URINE; Value: NEGATIVE; Range: NEGATIVE; Status: F Test Note: ; ALL PRESUMPTIVE POSITIVE FINDINGS ARE UNCONFIRMED NORMAL VALUES THRESHOLD IN NG/ML AMPHETAMINES 1000 METHAMPHETAMINES 1000 BARBITURATES 300 BENZODIAZEPINES 300 CANNABINOIDS (THC) 50 COCAINE METABOLITE 300 METHADONE 300 OPIATES 300 PHENCYCLIDINE 25 TRICYCLIC ANTIDEPRESSANTS 1000 RESULTS ARE FOR MEDICAL PURPOSES ONLY. ALL URINE SPECIMENS WILL BE SAVED FOR 3 DAYS. IF CONFIRMATION OF A PRESUMPTIVE POSTIVE SCREEN RESULT IS DESIRED, CALL CHEMISTRY ([phone]) AND REQUEST URINE TO BE SENT TO REFERENCE LAB. FOR A LIST OF CLOSELY RELATED COMPOUNDS PLEASE CALL THE LAB. Lab Order: Ethyl Alcohol (ethanol); SPEC'M 06/18/16 18:30 Test: ETHYL ALCOHOL (ETHANOL); Value: < 0.003; Range: 0.000-0.010; Units: %; Status: F Lab Order: Liver Profile; SPEC'M 06/18/16 18:30 Test: AST/SGOT; Value: 18; Range: 15-37; Units: U/L; Status: F Test: ALT/SGPT; Value: 26; Range: 12-78; Units: U/L; Status: F Test: ALKALINE PHOSPHATASE; Value: 52; Range: 45-117; Units: U/L; Status: F Test: BILIRUBIN,TOTAL; Value: 0.3; Range: 0.2-1.0; Units: MG/DL; Status: F Test: BILIRUBIN,DIRECT; Value: < 0.1; Range: 0.0-0.2; Units: MG/DL; Status: F Test: TOTAL PROTEIN; Value: 7.2; Range: 6.4-8.2; Units: GM/DL; Status: F Test: ALBUMIN; Value: 4.1; Range: 3.2-5.2; Units: GM/DL; Status: F Test: ALBUMIN/GLOBULIN RATIO; Value: 1.32; Range: 1.00-1.93; Status: F Lab Order: Salicylate Level; SPEC'M 06/18/16 18:30 Test: SALICYLATE LEVEL; Value: < 1.7; Range: 5.0-30.0; Abnormal: Below low normal; Units: MG/DL; Status: F Lab Order: Thyroid Stimulating Hormone; SPEC'M 06/18/16 18:30 Test: THYROID STIMULATING HORMONE; Value: 1.780; Range: 0.358-3.740; Units: uIU/ML; Status: F Lab Order: PT/INR; SPEC'M 06/18/16 18:30 Test: PROTHROMBIN TIME; Value: 21.1; Range: 12.3-14.5; Abnormal: Above high normal; Units: SECONDS; Status: F Test: INR; Value: 1.81; Status: F Test Note: ; THERAPUTIC HUMAN INR VALUES INDICATIONS NORMAL RANGES PROPHYLAXIS/TREATMENT OF: VENOUS THROMBOSIS 2.0-3.0 PULMONARY EMBOLISM 2.0-3.0 PREVENTION OF SYSTEMIC EMBOLISM FROM: TISSUE HEART VALVES 2.0-3.0 ACUTE MYOCARDIAL INFARCTION 2.0-3.0 VALVULAR HEART DISEASE 2.0-3.0 ATRIAL FIBRILLATION 2.0-3.0 MECHANICAL VALVES(HIGH RISK) 2.5-3.5 RECURRENT MYOCARDIAL INFARCTION 2.5-3.5 Lab Order: PTT; SPEC 06/18/16 18:30 Test: PARTIAL THROMBOPLASTIN TIME; Value: 29.7; Range: 26.6-37.1; Units: SECONDS; Status: F Radiology Order: EKG-ADULT Test: EKG-ADULT REASON FOR EXAMINATION: PSYCH CLEARANCE; Stationary ECG Study; 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 sd1 14:25 Discharge Assessment: Patient awake, alert and oriented x 3. No cognitive and/or mk4 functional deficits noted. Patient verbalized understanding of disposition instructions. Patient awake and alert. Discharge Assessment: patient administered narcotics - no. The following High Risk Discharge criteria are identified: Yes. Transferred to [place] . by EMS ground report to accompanying personnel Kassi DOYLE. Condition: good. No special radiology studies were completed. Property left with pt per JULES GAMINO. 14:28 Patient left the ED. gr2 Signatures: Dispatcher [employer] EDMS Kody Burns MD MD pc Delaney-Rowland, MD TAMELA Calix sd1 Jacquelin Sweet MD MD ml Hermelinda Dickerson, Senior Net Software Developer Unit lbd Leslie Williamson RN RN jan Anderson, Cathy, PSA PSA ca Hay, Flory, PSA PSA rb Krystle KapoorRN RN ck1 Steven Easley,ROLL FINISHER ROLL FINISHER rw1 Rj Santana, CAMPUS WELLNESS COORDINATOR CAMPUS WELLNESS COORDINATOR kb5 Ruba, Silke, CAMPUS WELLNESS COORDINATOR CAMPUS WELLNESS COORDINATOR franki Corey, Herone gr2 Caden HardwickRN Griselda Clay RN RN april4 Hiram Noland, CAMPUS WELLNESS COORDINATOR CAMPUS WELLNESS COORDINATOR Nando Dave, CAMPUS WELLNESS COORDINATOR CAMPUS WELLNESS COORDINATOR Ermelinda Godinez, CAMPUS WELLNESS COORDINATOR CAMPUS WELLNESS COORDINATOR rs6 Sola Gale,RN RN cf2 Corrections: (The following items were deleted from the chart) 09:01 06/18 17:20 Home Meds: Valtrex 500 mg Oral tab 1 tab three times a day; donna kincaid 06/19 10:41 06/18 17:20 Home Meds: Tobramycin Opht; as directed; donna kincaid Chart Complete MTDD
--- NOTE | 2016-06-25 11:08 | EDDOCDS ---
Physician Documentation [facility] Name: Ngozi Tubbs Age: 60 yrs Sex: Female : 1955 Arrival Date: 06/18/2016 Time: 16:57 Bed OBSERVATION Private MD: Disposition: 06/19/16 11:25 Transfer ordered to [facility]. Diagnosis is Suicidal ideations. - Reason for transfer: Higher level of care. - Accepting physician is Dr. Aviles. - Condition is Stable. - Problem is an acute exacerbation. - Symptoms are unchanged. Historical: - Allergies: Morphine (Vomit); - Home Meds: 1. aspirin 81 mg Oral TbEC 1 tab once daily 2. atenolol 50 mg Oral tab nightly 3. atorvastatin 80 mg oral tab 1 tab once daily 4. Calcium + Vitamin D 600mg-400mg Oral 5. cyanocobalamin (vitamin B-12) 1,000 mcg/mL injection kit 1 mL once moly 6. fenofibrate 145mg oral once daily 7. ferrous sulfate 325 mg (65 mg iron) Oral cpER twice a day 8. isosorbide mononitrate 60 mg Oral Tb24 1 tab once daily 9. Lasix 40 mg Oral tab 1 tab once daily 10. nortriptyline 25 mg Oral cap daily 11. omeprazole 40 mg Oral cpDR 1 cap 2 times per day 12. oxybutynin chloride 5 mg Oral tab 1 tab 2 times per day 13. Oxygen 2 liters /min continuous 14. paroxetine HCl 50 mg Oral tab 1 tab once daily 15. spironolactone 12.5 mg Oral once daily 16. thera tears every hour 17. topiramate 25 mg oral tab 2 tabs 2 times per day 18. Vitamin D2 1.25mg oral once wkly 19. warfarin 2 mg Oral tab 1 tab once daily 20. Zylet 0.3-0.5 % ophthalmic drps 1 drop twice a day 21. Valtrex 1 gram oral tab 1 tab 3 times per day - PMHx: coronary atherosclerosis; Depression; GERD; hyperlipidemia; hypoxemia; Myocardial infarction; Osteoporosis; Pneumonia; seborrheic dermatitis; sleep apnea; Sleep Apnea w/o CPAP; Stroke; thrombosis of leg; - PSHx: laryngoplasty; Skin Graft; Knee surgery- Left; Left leg arterial embolectomy; thyroplasty; gastrostomy; - Social history: Smoking status: Patient states former smoker of tobacco. No barriers to communication noted, The patient speaks fluent Martiniquais, Speaks appropriately for age. - Family history: Not pertinent. - : The pt / caregiver states he / she is on anticoagulants: coumadin. Home medication list is obtained from the patient. - Exposure Risk Screening:: None identified. Vital Signs: 06/18 17:20 BP 113 / 60; Pulse 66; Resp 22; Temp 97.3(O); Pulse Ox 92% on 2 lpm NC; Weight 86.18 kg jmb / 189.99 lbs (R); Height 5 ft. 6 in. (167.64 cm) (R); Pain 0/10; 19:38 BP 128 / 73; Pulse 73; Resp 18; Temp 97.5(O); Pulse Ox 96% on R/A; Pain 0/10; jmb 21:39 BP 99 / 55; Pulse 82; Resp 22; Temp 97.5; Pulse Ox 91% on R/A; Pain 0/10; jmb 21:51 BP 94 / 51 (auto/); jmb 21:51 Pulse 48 MON; Pulse Ox 78% ; jmb 22:16 BP 92 / 50 (auto/); jmb 22:16 Pulse 68 MON; Pulse Ox 80% ; jmb 22:17 Pulse 66 MON; Pulse Ox 87% ; jmb 22:21 BP 107 / 62 (auto/); jmb 22:36 BP 117 / 65 (auto/); Pulse 68; Resp 22; Pulse Ox 91% on 3 lpm NC; jmb 22:59 BP 100 / 59 (auto/); cf2 23:00 Pulse Ox 77% ; cf2 23:29 BP 98 / 55 (auto/); cf2 23:37 Pulse Ox 72% ; cf2 23:59 Pulse Ox 91% ; cf2 23:59 BP 105 / 70 (auto/); cf2 06/19 00:29 Pulse Ox 93% ; cf2 00:29 BP 116 / 65 (auto/); cf2 00:59 Pulse Ox 93% ; cf2 00:59 BP 107 / 69 (auto/); cf2 01:29 Pulse Ox 92% ; cf2 01:29 BP 121 / 61 (auto/); cf2 01:59 Pulse Ox 98% ; cf2 01:59 BP 114 / 62 (auto/); cf2 02:29 BP 122 / 68 (auto/); cf2 02:29 Pulse Ox 98% ; cf2 06:06 BP 106 / 56 LA Sitting; Pulse 68; Resp 20; Temp 98.4(T); Pulse Ox 96% on 2.0 lpm NC; rw1 Pain 0/10; 14:25 BP 114 / 58; Pulse 77; Resp 20; Temp 98; Pulse Ox 94% ; mk4 06/18 17:20 Body Mass Index 30.67 (86.18 kg, 167.64 cm) donna MDM: 06/18 18:17 Consult PFS/PSA/Practice Billing Associate ordered. ml 18:17 Consult PFS/PSA/Practice Billing Associate: Patient's case requires discussion with on-call ml Psychiatrist ordered. 18:17 PSA/PFS to call Nursing Cable Installation Manager, to enter patient data on [place] Safe Act if patient ml involuntarily admitted or transferred for SI or HI ordered. 18:17 Confirm accurate psychiatric medication list and times of last dosage ordered. ml 18:17 Detain Pt Until Medically/PFS Cleared ordered. ml 18:18 Acetaminophen Level Ordered. EDMS 18:18 Basic Metabolic Profile Ordered. EDMS 18:18 Complete Blood Count Ordered. EDMS 18:18 Drug Eval Toxicology ED Only Ordered. EDMS 18:18 Ethyl Alcohol (ethanol) Ordered. EDMS 18:18 Liver Profile Ordered. EDMS 18:18 Salicylate Level Ordered. EDMS 18:18 Thyroid Stimulating Hormone Ordered. EDMS 18:43 Misc. Nursing Order ordered. ml 18:43 PT/INR Ordered. EDMS 18:43 PTT Ordered. EDMS 19:13 Atenolol 50 mg PO once ordered. jmb 19:13 Atorvastatin 80 mg PO once ordered. jmb 19:13 Ferrous Sulfate 325 mg PO once ordered. jmb 19:13 omeprazole Delayed Release Capsule 40 mg PO once; swallow whole (do not crush or chew) jmb OR open capsule, sprinkle contents over tablespoonful applesauce; swallow all immediately/do not chew pellets ordered. 19:13 Oxybutynin 5 mg PO once ordered. jmb 19:13 valACYclovir 500 mg PO once ordered. jmb 19:13 Warfarin 2 mg PO once ordered. jmb 19:31 Financial registration complete. gjb 20:31 Acetaminophen Level Reviewed. ml 20:31 Basic Metabolic Profile Reviewed. ml 20:31 Complete Blood Count Reviewed. ml 20:31 Salicylate Level Reviewed. ml 20:31 PT/INR Reviewed. ml 20:31 Drug Eval Toxicology ED Only Reviewed. ml 20:31 Ethyl Alcohol (ethanol) Reviewed. ml 20:31 Liver Profile Reviewed. ml 20:31 Thyroid Stimulating Hormone Reviewed. ml 20:31 PTT Reviewed. ml 06/19 02:03 Consult PFS/PSA/Practice Billing Associate complete. rb 02:04 Consult PFS/PSA/Practice Billing Associate: Patient's case requires discussion with on-call rb Psychiatrist complete. 02:04 PSA/PFS to call Nursing Cable Installation Manager, to enter patient data [place] Safe [place] if patient rb involuntarily admitted or transferred for SI or HI complete. 04:15 REGULAR DIET PLASTIC DURAN+DIET ordered. EDMS 05:27 ECG WITH READING ER PHYS+CARDIAG ordered. EDMS 05:41 Awaiting: The patient is awaiting psychiatric admission or transfer. All labs and pc investigations have been reviewed. The vital signs have been reviewed. The patient remains medically cleared for disposition. 05:41 Test interpretation: EKG. pc 08:26 Aspirin Delayed Release Tablet 81 mg PO once ordered. mk4 08:26 Fenofibrate Nanocrystallized 145 mg PO once; swallow whole; do not crush, chew, break, mk4 dissolve, or cut ordered. 08:26 Isosorbide Mononitrate 60 mg PO once ordered. mk4 08:26 Furosemide 40 mg PO once ordered. mk4 08:27 Nortriptyline 25 mg PO once ordered. mk4 08:28 Oxybutynin 5 mg PO once ordered. mk4 08:30 PARoxetine 50 mg PO once ordered. mk4 08:30 Spironolactone 12.5 mg PO once ordered. mk4 08:30 Topiramate 25 mg PO once ordered. mk4 08:35 omeprazole Delayed Release Capsule 20 mg PO once; swallow whole; do not crush/chew/cut mk4 OR may open and sprinkle contents over spoonful of applesauce; swallow all immediately/do not chew pellets ordered. 09:02 valACYclovir 1000 mg PO once ordered. mk4 10:40 Zylet Drops 0.3 %-0.5 % 1 drps Ophthalmic once; right eye twice a day pt may take own mk4 from locker ordered. 11:19 REGULAR DIET PLASTIC DURAN+DIET ordered. EDMS EC:41 Rate is 64 beats/min. Rhythm is regular, Normal Sinus Rhythm with 1st degree heart pc block. QRS [place] is Normal. IN interval is prolonged at 211 msec. QRS interval is normal. QT interval is normal. Q waves are Old in leads II, III, aVF. T waves are Normal. No ST changes noted. Clinical impression: Normal Sinus Rhythm, 1st degree heart block, Anterior OK - age indeterminate, and Inferior OK - age indeterminate. No change from previous ECG on June 05, 2016. Administered Medications: 06/18 19:39 Drug: Atenolol 50 mg [atenolol 25 mg tablet (2 tabs)] Route: PO; b :39 Drug: Atorvastatin 80 mg [atorvastatin 20 mg tablet (4 tabs)] Route: PO; b 19:39 Drug: omeprazole 40 mg [omeprazole 20 mg capsule,delayed release (2 caps)] Route: PO; b 19:39 Drug: valACYclovir 500 mg [valacyclovir 500 mg tablet (1 tabs)] Route: PO; b 20:31 Drug: Ferrous Sulfate 325 mg Route: PO; jmb 20:31 Drug: Oxybutynin 5 mg [oxybutynin chloride 5 mg tablet (1 tabs)] Route: PO; jmb 20:31 Drug: Warfarin 2 mg [warfarin 2 mg tablet (1 tabs)] Route: PO; jmb 06/19 08:34 CANCELLED (Duplicate Order): omeprazole Delayed Release Capsule 40 mg PO once; swallow mk4 whole (do not crush or chew) OR open capsule, sprinkle contents over tablespoonful applesauce; swallow all immediately/do not chew pellets 09:01 CANCELLED (Duplicate Order): valACYclovir 500 mg PO once mk4 09:49 Drug: Nortriptyline 25 mg Route: PO; mk4 09:49 Drug: Oxybutynin 5 mg Route: PO; mk4 09:49 Drug: PARoxetine 50 mg [paroxetine 10 mg tablet (5 tabs)] Route: PO; mk4 09:49 Drug: Spironolactone 12.5 mg Route: PO; mk4 09:49 Drug: Topiramate 25 mg Route: PO; mk4 09:49 Drug: omeprazole Delayed Release Capsule 20 mg Route: PO; mk4 09:50 Drug: Aspirin Delayed Release Tablet 81 mg Route: PO; 4 09:50 Drug: Fenofibrate Nanocrystallized 145 mg Route: PO; mk4 09:50 Drug: Isosorbide Mononitrate 60 mg Route: PO; mk4 09:50 Drug: Furosemide 40 mg [furosemide 20 mg tablet (2 tabs)] Route: PO; mk4 10:39 Drug: valACYclovir 1000 mg [valacyclovir 500 mg tablet (2 tabs)] Route: PO; mk4 10:40 Drug: Zylet Drops 0.3 %-0.5 % 1 drps Route: Ophthalmic; Site: right eye; 4 Signatures: Dispatcher [employer] EDMS Kody Burns MD MD pc Delaney-Rowland, Sarah, MD MD sd1 Jacquelin Sweet MD MD ml Guido, Flory, PSA PSA rb Rashaad Nicole gr2 Caden Hardwick RN RN jmb King, Margaret, RN RN mk4 Beck, Gabriela gjb The chart was reviewed and I authenticate all verbal orders and agree with the evaluation and treatment provided.Corrections: (The following items were deleted from the chart) 08:34 08:28 omeprazole Delayed Release Capsule 40 mg PO once; swallow whole (do not crush or mk4 chew) OR open capsule, sprinkle contents over tablespoonful applesauce; swallow all immediately/do not chew pellets ordered. Alireza 09:06/18 17:20 Home Meds: Valtrex 500 mg Oral tab 1 tab three times a day; donna Alireza 06/19 09:01 08:30 valACYclovir 500 mg PO once ordered. [place] [id number] 10:41 06/18 17:20 Home Meds: Tobramycin Opht; as directed; donna [facility] Chart Complete MTDD
--- NOTE | 2016-06-25 11:08 | EDDOCDS ---
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 8.5-10.1; Units: MG/DL; Status: F Test Note: ; Units are mL/min/1.73 m2 Chronic Kidney Disease Staging per NKF: Stage I & II GFR >=60 Normal to Mildly Decreased Stage III GFR 30-59 Moderately Decreased Stage IV GFR 15-29 Severely Decreased Stage V GFR <15 Very Little GFR Left ESRD GFR <15 on STONE SPLITTER Lab Order: Complete Blood Count; SPEC'M 06/18/16 18:30 Test: WHITE BLOOD COUNT; Value: 8.8; Range: 4.0-10.0; Units: K/mm3; Status: F Test: RED BLOOD COUNT; Value: 4.27; Range: 4.00-5.40; Units: M/mm3; Status: F Test: HEMOGLOBIN; Value: 14.3; Range: 12.0-16.0; Units: g/dl; Status: F Test: HEMATOCRIT; Value: 44.7; Range: 36.0-47.0; Units: %; Status: F Test: MEAN CORPUSCULAR VOLUME; Value: 104.6; Range: 80.0-96.0; Abnormal: Above high normal; Units: fl; Status: F Test: MEAN CORPUSCULAR HEMOGLOBIN; Value: 33.4; Range: 27.0-33.0; Abnormal: Above high normal; Units: pg; Status: F Test: MEAN CORPUSCULAR HGB CONC; Value: 31.9; Range: 32.0-36.5; Abnormal: Below low normal; Units: g/dl; Status: F Test: RED CELL DISTRIBUTION WIDTH; Value: 14.2; Range: 11.5-14.5; Units: %; Status: F Test: PLATELET COUNT, AUTOMATED; Value: 180; Range: 150-450; Units: k/mm3; Status: F Lab Order: Drug Eval Toxicology ED Only; SPEC'M 06/18/16 18:30 Test: AMPHETAMINES LEVEL URINE; Value: NEGATIVE; Range: NEGATIVE; Status: F Test: BARBITURATES URINE; Value: NEGATIVE; Range: NEGATIVE; Status: F Test: BENZODIAZEPINES URINE; Value: NEGATIVE; Range: NEGATIVE; Status: F Test: CANNABINOIDS URINE; Value: NEGATIVE; Range: NEGATIVE; Status: F Test: COCAINE METABOLITE URINE; Value: NEGATIVE; Range: NEGATIVE; Status: F Test: METHADONE URINE; Value: NEGATIVE; Range: NEGATIVE; Status: F Test: OPIATES URINE; Value: NEGATIVE; Range: NEGATIVE; Status: F Test: TRICYCLIC ANTIDEPRESS URINE; Value: NEGATIVE; Range: NEGATIVE; Status: F Test Note: ; ALL PRESUMPTIVE POSITIVE FINDINGS ARE UNCONFIRMED NORMAL VALUES THRESHOLD IN NG/ML AMPHETAMINES 1000 METHAMPHETAMINES 1000 BARBITURATES 300 BENZODIAZEPINES 300 CANNABINOIDS (THC) 50 COCAINE METABOLITE 300 METHADONE 300 OPIATES 300 PHENCYCLIDINE 25 TRICYCLIC ANTIDEPRESSANTS 1000 RESULTS ARE FOR MEDICAL PURPOSES ONLY. ALL URINE SPECIMENS WILL BE SAVED FOR 3 DAYS. IF CONFIRMATION OF A PRESUMPTIVE POSTIVE SCREEN RESULT IS DESIRED, CALL CHEMISTRY ([phone]) AND REQUEST URINE TO BE SENT TO REFERENCE LAB. FOR A LIST OF CLOSELY RELATED COMPOUNDS PLEASE CALL THE LAB. Lab Order: Ethyl Alcohol (ethanol); SPEC'M 06/18/16 18:30 Test: ETHYL ALCOHOL (ETHANOL); Value: < 0.003; Range: 0.000-0.010; Units: %; Status: F Lab Order: Liver Profile; SPEC'M 06/18/16 18:30 Test: AST/SGOT; Value: 18; Range: 15-37; Units: U/L; Status: F Test: ALT/SGPT; Value: 26; Range: 12-78; Units: U/L; Status: F Test: ALKALINE PHOSPHATASE; Value: 52; Range: 45-117; Units: U/L; Status: F Test: BILIRUBIN,TOTAL; Value: 0.3; Range: 0.2-1.0; Units: MG/DL; Status: F Test: BILIRUBIN,DIRECT; Value: < 0.1; Range: 0.0-0.2; Units: MG/DL; Status: F Test: TOTAL PROTEIN; Value: 7.2; Range: 6.4-8.2; Units: GM/DL; Status: F Test: ALBUMIN; Value: 4.1; Range: 3.2-5.2; Units: GM/DL; Status: F Test: ALBUMIN/GLOBULIN RATIO; Value: 1.32; Range: 1.00-1.93; Status: F Lab Order: Salicylate Level; SPEC'M 06/18/16 18:30 Test: SALICYLATE LEVEL; Value: < 1.7; Range: 5.0-30.0; Abnormal: Below low normal; Units: MG/DL; Status: F Lab Order: Thyroid Stimulating Hormone; SPEC'M 06/18/16 18:30 Test: THYROID STIMULATING HORMONE; Value: 1.780; Range: 0.358-3.740; Units: uIU/ML; Status: F Lab Order: PT/INR; SPEC'M 06/18/16 18:30 Test: PROTHROMBIN TIME; Value: 21.1; Range: 12.3-14.5; Abnormal: Above high normal; Units: SECONDS; Status: F Test: INR; Value: 1.81; Status: F Test Note: ; THERAPUTIC HUMAN INR VALUES INDICATIONS NORMAL RANGES PROPHYLAXIS/TREATMENT OF: VENOUS THROMBOSIS 2.0-3.0 PULMONARY EMBOLISM 2.0-3.0 PREVENTION OF SYSTEMIC EMBOLISM FROM: TISSUE HEART VALVES 2.0-3.0 ACUTE MYOCARDIAL INFARCTION 2.0-3.0 VALVULAR HEART DISEASE 2.0-3.0 ATRIAL FIBRILLATION 2.0-3.0 MECHANICAL VALVES(HIGH RISK) 2.5-3.5 RECURRENT MYOCARDIAL INFARCTION 2.5-3.5 Lab Order: PTT; SPEC 06/18/16 18:30 Test: PARTIAL THROMBOPLASTIN TIME; Value: 29.7; Range: 26.6-37.1; Units: SECONDS; Status: F Radiology Order: EKG-ADULT Test: EKG-ADULT REASON FOR EXAMINATION: PSYCH CLEARANCE; Stationary ECG Study; [facility] - ED; ; Test Date: 2016-06-19; Pat Name: NGOZI TERRY Department:; Room: -; Gender: F Assistant Auditor: winston; : 1955 Requested By: Jacquelin Sweet; Order Number: [id number] Reading MD: Fifi Roth; Measurements; Intervals [place]; Rate: 64 P: 48; GA: 211 QRS: -18; QRSD: 93 T: -27; QT: 399; QTc: 413; Interpretive Statements; SINUS RHYTHM WITH FIRST DEGREE AV BLOCK; POSSIBLE ANTERIOR MYOCARDIAL INFARCTION, OF INDETERMINATE AGE; INFERIOR MYOCARDIAL INFARCTION, OF INDETERMINATE AGE; MODERATE T-WAVE ABNORMALITY, CONSIDER ISCHEMIA; DECREASED RATE 06/05/16; Electronically Signed On 06-19-2016 19:54:22 EST by Fifi oRth; Outcome: 11:25 ER care complete, transfer ordered by Provider. sd1 14:25 Discharge Assessment: Patient awake, alert and oriented x 3. No cognitive and/or mk4 functional deficits noted. Patient verbalized understanding of disposition instructions. Patient awake and alert. Discharge Assessment: patient administered narcotics - no. The following High Risk Discharge criteria are identified: Yes. Transferred to [facility] . by EMS ground report to accompanying personnel Kassi DOYLE. Condition: good. No special radiology studies were completed. Property left with pt per JULES GAMINO. 14:28 Patient left the ED. gr2 Signatures: Dispatcher [employer] EDMS Kody Burns MD MD pc Delaney-Rowland, MD TAMELA Calix sd1 Jacquelin Sweet MD MD ml Hermelinda Dickerson, Rn Cardiac Unit lbd Leslie Williamson RN RN jan Anderson, Cathy, PSA PSA ca Hay, Flory, PSA PSA rb Krystle KapoorRN RN ck1 Steven Easley,VARNISH MELTER VARNISH MELTER rw1 Rj Santana, ASSURANCE ASSOCIATE ASSURANCE ASSOCIATE kb5 Ruba, Silke, ASSURANCE ASSOCIATE ASSURANCE ASSOCIATE franki Corey, Herone gr2 Caden HardwickRN Griselda Clay RN RN april4 Hiram Noland, ASSURANCE ASSOCIATE ASSURANCE ASSOCIATE Nando Dave, ASSURANCE ASSOCIATE ASSURANCE ASSOCIATE Ermelinda Godinez, ASSURANCE ASSOCIATE ASSURANCE ASSOCIATE rs6 Sola Gale,RN RN cf2 Corrections: (The following items were deleted from the chart) 09:01 06/18 17:20 Home Meds: Valtrex 500 mg Oral tab 1 tab three times a day; donna kincaid 06/19 10:41 06/18 17:20 Home Meds: Tobramycin Opht; as directed; donna kincaid Chart Complete MTDD
--- NOTE | 2016-06-25 11:09 | EDDOCDS ---
Physician Documentation [facility] Name: Ngozi Tubbs Age: 60 yrs Sex: Female : 1955 Arrival Date: 06/18/2016 Time: 16:57 Bed OBSERVATION Private MD: Disposition: 06/19/16 11:25 Transfer ordered to [facility] / [facility]. Diagnosis is Suicidal ideations. - Reason for transfer: Higher level of care. - Accepting physician is Dr. Aviles. - Condition is Stable. - Problem is an acute exacerbation. - Symptoms are unchanged. Historical: - Allergies: Morphine (Vomit); - Home Meds: 1. aspirin 81 mg Oral TbEC 1 tab once daily 2. atenolol 50 mg Oral tab nightly 3. atorvastatin 80 mg oral tab 1 tab once daily 4. Calcium + Vitamin D 600mg-400mg Oral 5. cyanocobalamin (vitamin B-12) 1,000 mcg/mL injection kit 1 mL once moly 6. fenofibrate 145mg oral once daily 7. ferrous sulfate 325 mg (65 mg iron) Oral cpER twice a day 8. isosorbide mononitrate 60 mg Oral Tb24 1 tab once daily 9. Lasix 40 mg Oral tab 1 tab once daily 10. nortriptyline 25 mg Oral cap daily 11. omeprazole 40 mg Oral cpDR 1 cap 2 times per day 12. oxybutynin chloride 5 mg Oral tab 1 tab 2 times per day 13. Oxygen 2 liters /min continuous 14. paroxetine HCl 50 mg Oral tab 1 tab once daily 15. spironolactone 12.5 mg Oral once daily 16. thera tears every hour 17. topiramate 25 mg oral tab 2 tabs 2 times per day 18. Vitamin D2 1.25mg oral once wkly 19. warfarin 2 mg Oral tab 1 tab once daily 20. Zylet 0.3-0.5 % ophthalmic drps 1 drop twice a day 21. Valtrex 1 gram oral tab 1 tab 3 times per day - PMHx: coronary atherosclerosis; Depression; GERD; hyperlipidemia; hypoxemia; Myocardial infarction; Osteoporosis; Pneumonia; seborrheic dermatitis; sleep apnea; Sleep Apnea w/o CPAP; Stroke; thrombosis of leg; - PSHx: laryngoplasty; Skin Graft; Knee surgery- Left; Left leg arterial embolectomy; thyroplasty; gastrostomy; - Social history: Smoking status: Patient states former smoker of tobacco. No barriers to communication noted, The patient speaks fluent Irish, Speaks appropriately for age. - Family history: Not pertinent. - : The pt / caregiver states he / she is on anticoagulants: coumadin. Home medication list is obtained from the patient. - Exposure Risk Screening:: None identified. Vital Signs: 06/18 17:20 BP 113 / 60; Pulse 66; Resp 22; Temp 97.3(O); Pulse Ox 92% on 2 lpm NC; Weight 86.18 kg jmb / 189.99 lbs (R); Height 5 ft. 6 in. (167.64 cm) (R); Pain 0/10; 19:38 BP 128 / 73; Pulse 73; Resp 18; Temp 97.5(O); Pulse Ox 96% on R/A; Pain 0/10; jmb 21:39 BP 99 / 55; Pulse 82; Resp 22; Temp 97.5; Pulse Ox 91% on R/A; Pain 0/10; jmb 21:51 BP 94 / 51 (auto/); jmb 21:51 Pulse 48 MON; Pulse Ox 78% ; jmb 22:16 BP 92 / 50 (auto/); jmb 22:16 Pulse 68 MON; Pulse Ox 80% ; jmb 22:17 Pulse 66 MON; Pulse Ox 87% ; jmb 22:21 BP 107 / 62 (auto/); jmb 22:36 BP 117 / 65 (auto/); Pulse 68; Resp 22; Pulse Ox 91% on 3 lpm NC; jmb 22:59 BP 100 / 59 (auto/); cf2 23:00 Pulse Ox 77% ; cf2 23:29 BP 98 / 55 (auto/); cf2 23:37 Pulse Ox 72% ; cf2 23:59 Pulse Ox 91% ; cf2 23:59 BP 105 / 70 (auto/); cf2 06/19 00:29 Pulse Ox 93% ; cf2 00:29 BP 116 / 65 (auto/); cf2 00:59 Pulse Ox 93% ; cf2 00:59 BP 107 / 69 (auto/); cf2 01:29 Pulse Ox 92% ; cf2 01:29 BP 121 / 61 (auto/); cf2 01:59 Pulse Ox 98% ; cf2 01:59 BP 114 / 62 (auto/); cf2 02:29 BP 122 / 68 (auto/); cf2 02:29 Pulse Ox 98% ; cf2 06:06 BP 106 / 56 LA Sitting; Pulse 68; Resp 20; Temp 98.4(T); Pulse Ox 96% on 2.0 lpm NC; rw1 Pain 0/10; 14:25 BP 114 / 58; Pulse 77; Resp 20; Temp 98; Pulse Ox 94% ; mk4 06/18 17:20 Body Mass Index 30.67 (86.18 kg, 167.64 cm) donna MDM: 06/18 18:17 Consult PFS/PSA/Mobile Phone Salesperson ordered. ml 18:17 Consult PFS/PSA/Mobile Phone Salesperson: Patient's case requires discussion with on-call ml Psychiatrist ordered. 18:17 PSA/PFS to call Nursing Guard Rail Installer, to enter patient data on [place] Safe Act if patient ml involuntarily admitted or transferred for SI or HI ordered. 18:17 Confirm accurate psychiatric medication list and times of last dosage ordered. ml 18:17 Detain Pt Until Medically/PFS Cleared ordered. ml 18:18 Acetaminophen Level Ordered. EDMS 18:18 Basic Metabolic Profile Ordered. EDMS 18:18 Complete Blood Count Ordered. EDMS 18:18 Drug Eval Toxicology ED Only Ordered. EDMS 18:18 Ethyl Alcohol (ethanol) Ordered. EDMS 18:18 Liver Profile Ordered. EDMS 18:18 Salicylate Level Ordered. EDMS 18:18 Thyroid Stimulating Hormone Ordered. EDMS 18:43 Misc. Nursing Order ordered. ml 18:43 PT/INR Ordered. EDMS 18:43 PTT Ordered. EDMS 19:13 Atenolol 50 mg PO once ordered. jmb 19:13 Atorvastatin 80 mg PO once ordered. jmb 19:13 Ferrous Sulfate 325 mg PO once ordered. jmb 19:13 omeprazole Delayed Release Capsule 40 mg PO once; swallow whole (do not crush or chew) jmb OR open capsule, sprinkle contents over tablespoonful applesauce; swallow all immediately/do not chew pellets ordered. 19:13 Oxybutynin 5 mg PO once ordered. jmb 19:13 valACYclovir 500 mg PO once ordered. jmb 19:13 Warfarin 2 mg PO once ordered. jmb 19:31 Financial registration complete. gjb 20:31 Acetaminophen Level Reviewed. ml 20:31 Basic Metabolic Profile Reviewed. ml 20:31 Complete Blood Count Reviewed. ml 20:31 Salicylate Level Reviewed. ml 20:31 PT/INR Reviewed. ml 20:31 Drug Eval Toxicology ED Only Reviewed. ml 20:31 Ethyl Alcohol (ethanol) Reviewed. ml 20:31 Liver Profile Reviewed. ml 20:31 Thyroid Stimulating Hormone Reviewed. ml 20:31 PTT Reviewed. ml 06/19 02:03 Consult PFS/PSA/Mobile Phone Salesperson complete. rb 02:04 Consult PFS/PSA/Mobile Phone Salesperson: Patient's case requires discussion with on-call rb Psychiatrist complete. 02:04 PSA/PFS to call Nursing Guard Rail Installer, to enter patient data [place] Safe [place] if patient rb involuntarily admitted or transferred for SI or HI complete. 04:15 REGULAR DIET PLASTIC DURAN+DIET ordered. EDMS 05:27 ECG WITH READING ER PHYS+CARDIAG ordered. EDMS 05:41 Awaiting: The patient is awaiting psychiatric admission or transfer. All labs and pc investigations have been reviewed. The vital signs have been reviewed. The patient remains medically cleared for disposition. 05:41 Test interpretation: EKG. pc 08:26 Aspirin Delayed Release Tablet 81 mg PO once ordered. mk4 08:26 Fenofibrate Nanocrystallized 145 mg PO once; swallow whole; do not crush, chew, break, mk4 dissolve, or cut ordered. 08:26 Isosorbide Mononitrate 60 mg PO once ordered. mk4 08:26 Furosemide 40 mg PO once ordered. mk4 08:27 Nortriptyline 25 mg PO once ordered. mk4 08:28 Oxybutynin 5 mg PO once ordered. mk4 08:30 PARoxetine 50 mg PO once ordered. mk4 08:30 Spironolactone 12.5 mg PO once ordered. mk4 08:30 Topiramate 25 mg PO once ordered. mk4 08:35 omeprazole Delayed Release Capsule 20 mg PO once; swallow whole; do not crush/chew/cut mk4 OR may open and sprinkle contents over spoonful of applesauce; swallow all immediately/do not chew pellets ordered. 09:02 valACYclovir 1000 mg PO once ordered. mk4 10:40 Zylet Drops 0.3 %-0.5 % 1 drps Ophthalmic once; right eye twice a day pt may take own mk4 from locker ordered. 11:19 REGULAR DIET PLASTIC DURAN+DIET ordered. EDMS EC:41 Rate is 64 beats/min. Rhythm is regular, Normal Sinus Rhythm with 1st degree heart pc block. QRS [place] is Normal. PA interval is prolonged at 211 msec. QRS interval is normal. QT interval is normal. Q waves are Old in leads II, III, aVF. T waves are Normal. No ST changes noted. Clinical impression: Normal Sinus Rhythm, 1st degree heart block, Anterior ND - age indeterminate, and Inferior ND - age indeterminate. No change from previous ECG on June 05, 2016. Administered Medications: 06/18 19:39 Drug: Atenolol 50 mg [atenolol 25 mg tablet (2 tabs)] Route: PO; b :39 Drug: Atorvastatin 80 mg [atorvastatin 20 mg tablet (4 tabs)] Route: PO; b 19:39 Drug: omeprazole 40 mg [omeprazole 20 mg capsule,delayed release (2 caps)] Route: PO; b 19:39 Drug: valACYclovir 500 mg [valacyclovir 500 mg tablet (1 tabs)] Route: PO; b 20:31 Drug: Ferrous Sulfate 325 mg Route: PO; jmb 20:31 Drug: Oxybutynin 5 mg [oxybutynin chloride 5 mg tablet (1 tabs)] Route: PO; jmb 20:31 Drug: Warfarin 2 mg [warfarin 2 mg tablet (1 tabs)] Route: PO; jmb 06/19 08:34 CANCELLED (Duplicate Order): omeprazole Delayed Release Capsule 40 mg PO once; swallow mk4 whole (do not crush or chew) OR open capsule, sprinkle contents over tablespoonful applesauce; swallow all immediately/do not chew pellets 09:01 CANCELLED (Duplicate Order): valACYclovir 500 mg PO once mk4 09:49 Drug: Nortriptyline 25 mg Route: PO; mk4 09:49 Drug: Oxybutynin 5 mg Route: PO; mk4 09:49 Drug: PARoxetine 50 mg [paroxetine 10 mg tablet (5 tabs)] Route: PO; mk4 09:49 Drug: Spironolactone 12.5 mg Route: PO; mk4 09:49 Drug: Topiramate 25 mg Route: PO; mk4 09:49 Drug: omeprazole Delayed Release Capsule 20 mg Route: PO; mk4 09:50 Drug: Aspirin Delayed Release Tablet 81 mg Route: PO; 4 09:50 Drug: Fenofibrate Nanocrystallized 145 mg Route: PO; mk4 09:50 Drug: Isosorbide Mononitrate 60 mg Route: PO; mk4 09:50 Drug: Furosemide 40 mg [furosemide 20 mg tablet (2 tabs)] Route: PO; mk4 10:39 Drug: valACYclovir 1000 mg [valacyclovir 500 mg tablet (2 tabs)] Route: PO; mk4 10:40 Drug: Zylet Drops 0.3 %-0.5 % 1 drps Route: Ophthalmic; Site: right eye; 4 Signatures: Dispatcher [employer] EDMS Kody Burns MD MD pc Delaney-Rowland, Sarah, MD MD sd1 Jacquelin Sweet MD MD ml Guido, Flory, PSA PSA rb Rashaad Nicole gr2 Caden Hardwick RN RN jmb King, Margaret, RN RN mk4 Beck, Gabriela gjb The chart was reviewed and I authenticate all verbal orders and agree with the evaluation and treatment provided.Corrections: (The following items were deleted from the chart) 08:34 08:28 omeprazole Delayed Release Capsule 40 mg PO once; swallow whole (do not crush or mk4 chew) OR open capsule, sprinkle contents over tablespoonful applesauce; swallow all immediately/do not chew pellets ordered. Alireza 09:06/18 17:20 Home Meds: Valtrex 500 mg Oral tab 1 tab three times a day; donna Alireza 06/19 09:01 08:30 valACYclovir 500 mg PO once ordered. [place] [id number] 10:41 06/18 17:20 Home Meds: Tobramycin Opht; as directed; donna [facility] Chart Complete MTDD
--- NOTE | 2016-06-26 10:41 | EDDOCDS ---
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 Range: 8.5-10.1; Units: MG/DL; Status: F Test Note: ; Units are mL/min/1.73 m2 Chronic Kidney Disease Staging per NKF: Stage I & II GFR >=60 Normal to Mildly Decreased Stage III GFR 30-59 Moderately Decreased Stage IV GFR 15-29 Severely Decreased Stage V GFR <15 Very Little GFR Left ESRD GFR <15 on CORE BLOWER OPERATOR Lab Order: Complete Blood Count; SPEC'M 06/18/16 18:30 Test: WHITE BLOOD COUNT; Value: 8.8; Range: 4.0-10.0; Units: K/mm3; Status: F Test: RED BLOOD COUNT; Value: 4.27; Range: 4.00-5.40; Units: M/mm3; Status: F Test: HEMOGLOBIN; Value: 14.3; Range: 12.0-16.0; Units: g/dl; Status: F Test: HEMATOCRIT; Value: 44.7; Range: 36.0-47.0; Units: %; Status: F Test: MEAN CORPUSCULAR VOLUME; Value: 104.6; Range: 80.0-96.0; Abnormal: Above high normal; Units: fl; Status: F Test: MEAN CORPUSCULAR HEMOGLOBIN; Value: 33.4; Range: 27.0-33.0; Abnormal: Above high normal; Units: pg; Status: F Test: MEAN CORPUSCULAR HGB CONC; Value: 31.9; Range: 32.0-36.5; Abnormal: Below low normal; Units: g/dl; Status: F Test: RED CELL DISTRIBUTION WIDTH; Value: 14.2; Range: 11.5-14.5; Units: %; Status: F Test: PLATELET COUNT, AUTOMATED; Value: 180; Range: 150-450; Units: k/mm3; Status: F Lab Order: Drug Eval Toxicology ED Only; SPEC'M 06/18/16 18:30 Test: AMPHETAMINES LEVEL URINE; Value: NEGATIVE; Range: NEGATIVE; Status: F Test: BARBITURATES URINE; Value: NEGATIVE; Range: NEGATIVE; Status: F Test: BENZODIAZEPINES URINE; Value: NEGATIVE; Range: NEGATIVE; Status: F Test: CANNABINOIDS URINE; Value: NEGATIVE; Range: NEGATIVE; Status: F Test: COCAINE METABOLITE URINE; Value: NEGATIVE; Range: NEGATIVE; Status: F Test: METHADONE URINE; Value: NEGATIVE; Range: NEGATIVE; Status: F Test: OPIATES URINE; Value: NEGATIVE; Range: NEGATIVE; Status: F Test: TRICYCLIC ANTIDEPRESS URINE; Value: NEGATIVE; Range: NEGATIVE; Status: F Test Note: ; ALL PRESUMPTIVE POSITIVE FINDINGS ARE UNCONFIRMED NORMAL VALUES THRESHOLD IN NG/ML AMPHETAMINES 1000 METHAMPHETAMINES 1000 BARBITURATES 300 BENZODIAZEPINES 300 CANNABINOIDS (THC) 50 COCAINE METABOLITE 300 METHADONE 300 OPIATES 300 PHENCYCLIDINE 25 TRICYCLIC ANTIDEPRESSANTS 1000 RESULTS ARE FOR MEDICAL PURPOSES ONLY. ALL URINE SPECIMENS WILL BE SAVED FOR 3 DAYS. IF CONFIRMATION OF A PRESUMPTIVE POSTIVE SCREEN RESULT IS DESIRED, CALL CHEMISTRY ([phone]) AND REQUEST URINE TO BE SENT TO REFERENCE LAB. FOR A LIST OF CLOSELY RELATED COMPOUNDS PLEASE CALL THE LAB. Lab Order: Ethyl Alcohol (ethanol); SPEC'M 06/18/16 18:30 Test: ETHYL ALCOHOL (ETHANOL); Value: < 0.003; Range: 0.000-0.010; Units: %; Status: F Lab Order: Liver Profile; SPEC'M 06/18/16 18:30 Test: AST/SGOT; Value: 18; Range: 15-37; Units: U/L; Status: F Test: ALT/SGPT; Value: 26; Range: 12-78; Units: U/L; Status: F Test: ALKALINE PHOSPHATASE; Value: 52; Range: 45-117; Units: U/L; Status: F Test: BILIRUBIN,TOTAL; Value: 0.3; Range: 0.2-1.0; Units: MG/DL; Status: F Test: BILIRUBIN,DIRECT; Value: < 0.1; Range: 0.0-0.2; Units: MG/DL; Status: F Test: TOTAL PROTEIN; Value: 7.2; Range: 6.4-8.2; Units: GM/DL; Status: F Test: ALBUMIN; Value: 4.1; Range: 3.2-5.2; Units: GM/DL; Status: F Test: ALBUMIN/GLOBULIN RATIO; Value: 1.32; Range: 1.00-1.93; Status: F Lab Order: Salicylate Level; SPEC'M 06/18/16 18:30 Test: SALICYLATE LEVEL; Value: < 1.7; Range: 5.0-30.0; Abnormal: Below low normal; Units: MG/DL; Status: F Lab Order: Thyroid Stimulating Hormone; SPEC'M 06/18/16 18:30 Test: THYROID STIMULATING HORMONE; Value: 1.780; Range: 0.358-3.740; Units: uIU/ML; Status: F Lab Order: PT/INR; SPEC'M 06/18/16 18:30 Test: PROTHROMBIN TIME; Value: 21.1; Range: 12.3-14.5; Abnormal: Above high normal; Units: SECONDS; Status: F Test: INR; Value: 1.81; Status: F Test Note: ; THERAPUTIC HUMAN INR VALUES INDICATIONS NORMAL RANGES PROPHYLAXIS/TREATMENT OF: VENOUS THROMBOSIS 2.0-3.0 PULMONARY EMBOLISM 2.0-3.0 PREVENTION OF SYSTEMIC EMBOLISM FROM: TISSUE HEART VALVES 2.0-3.0 ACUTE MYOCARDIAL INFARCTION 2.0-3.0 VALVULAR HEART DISEASE 2.0-3.0 ATRIAL FIBRILLATION 2.0-3.0 MECHANICAL VALVES(HIGH RISK) 2.5-3.5 RECURRENT MYOCARDIAL INFARCTION 2.5-3.5 Lab Order: PTT; SPEC 06/18/16 18:30 Test: PARTIAL THROMBOPLASTIN TIME; Value: 29.7; Range: 26.6-37.1; Units: SECONDS; Status: F Radiology Order: EKG-ADULT Test: EKG-ADULT REASON FOR EXAMINATION: PSYCH CLEARANCE; Stationary ECG Study; [facility] - ED; ; Test Date: 2016-06-19; Pat Name: NGOZI TERRY Department:; Room: -; Gender: F Cnc Supervisor: winston; : 1955 Requested By: Jacquelin Sweet; Order Number: [id number] Reading MD: Fifi Roth; Measurements; Intervals [place]; Rate: 64 P: 48; MS: 211 QRS: -18; QRSD: 93 T: -27; QT: 399; QTc: 413; Interpretive Statements; SINUS RHYTHM WITH FIRST DEGREE AV BLOCK; POSSIBLE ANTERIOR MYOCARDIAL INFARCTION, OF INDETERMINATE AGE; INFERIOR MYOCARDIAL INFARCTION, OF INDETERMINATE AGE; MODERATE T-WAVE ABNORMALITY, CONSIDER ISCHEMIA; DECREASED RATE 06/05/16; Electronically Signed On 06-19-2016 19:54:22 EST by Fifi Roth; Outcome: 11:25 ER care complete, transfer ordered by Provider. sd1 14:25 Discharge Assessment: Patient awake, alert and oriented x 3. No cognitive and/or mk4 functional deficits noted. Patient verbalized understanding of disposition instructions. Patient awake and alert. Discharge Assessment: patient administered narcotics - no. The following High Risk Discharge criteria are identified: Yes. Transferred to [facility] . by EMS ground report to accompanying personnel Kassi DOYLE. Condition: good. No special radiology studies were completed. Property left with pt per JULES GAMINO. 14:28 Patient left the ED. gr2 Signatures: Dispatcher [employer] EDMS Kody Burns MD MD pc Delaney-Rowland, MD TAMELA Calix sd1 Jacquelin Sweet MD MD ml Hermelinad Dickerson, Drywall Contractor Unit lbd Leslie Williamson RN RN jan Anderson, Cathy, PSA PSA ca Hay, Flory, PSA PSA rb Krystle KapoorRN RN ck1 Steven Easley,PERSONALIZATION SPECIALIST PERSONALIZATION SPECIALIST rw1 Rj Santana, PIPER HELPER PIPER HELPER kb5 Ruba, Silke, PIPER HELPER PIPER HELPER franki Corey, Herone gr2 Caden HardwickRN Griselda Clay RN RN april4 Hiram Noland, PIPER HELPER PIPER HELPER Nando Dave, PIPER HELPER PIPER HELPER Ermelinda Godinez, PIPER HELPER PIPER HELPER rs6 Sola Gale,RN RN cf2 Corrections: (The following items were deleted from the chart) 09:01 06/18 17:20 Home Meds: Valtrex 500 mg Oral tab 1 tab three times a day; donna kincaid 06/19 10:41 06/18 17:20 Home Meds: Tobramycin Opht; as directed; donna kincaid Chart Complete MTDD
--- NOTE | 2016-06-26 10:41 | EDDOCDS ---
Physician Documentation [facility] Name: Ngozi Tubbs Age: 60 yrs Sex: Female : 1955 Arrival Date: 06/18/2016 Time: 16:57 Bed OBSERVATION Private MD: Disposition: 06/19/16 11:25 Transfer ordered to [facility] / [facility] [address]. Diagnosis is Suicidal ideations. - Reason for transfer: Higher level of care. - Accepting physician is Dr. Aviles. - Condition is Stable. - Problem is an acute exacerbation. - Symptoms are unchanged. Historical: - Allergies: Morphine (Vomit); - Home Meds: 1. aspirin 81 mg Oral TbEC 1 tab once daily 2. atenolol 50 mg Oral tab nightly 3. atorvastatin 80 mg oral tab 1 tab once daily 4. Calcium + Vitamin D 600mg-400mg Oral 5. cyanocobalamin (vitamin B-12) 1,000 mcg/mL injection kit 1 mL once moly 6. fenofibrate 145mg oral once daily 7. ferrous sulfate 325 mg (65 mg iron) Oral cpER twice a day 8. isosorbide mononitrate 60 mg Oral Tb24 1 tab once daily 9. Lasix 40 mg Oral tab 1 tab once daily 10. nortriptyline 25 mg Oral cap daily 11. omeprazole 40 mg Oral cpDR 1 cap 2 times per day 12. oxybutynin chloride 5 mg Oral tab 1 tab 2 times per day 13. Oxygen 2 liters /min continuous 14. paroxetine HCl 50 mg Oral tab 1 tab once daily 15. spironolactone 12.5 mg Oral once daily 16. thera tears every hour 17. topiramate 25 mg oral tab 2 tabs 2 times per day 18. Vitamin D2 1.25mg oral once wkly 19. warfarin 2 mg Oral tab 1 tab once daily 20. Zylet 0.3-0.5 % ophthalmic drps 1 drop twice a day 21. Valtrex 1 gram oral tab 1 tab 3 times per day - PMHx: coronary atherosclerosis; Depression; GERD; hyperlipidemia; hypoxemia; Myocardial infarction; Osteoporosis; Pneumonia; seborrheic dermatitis; sleep apnea; Sleep Apnea w/o CPAP; Stroke; thrombosis of leg; - PSHx: laryngoplasty; Skin Graft; Knee surgery- Left; Left leg arterial embolectomy; thyroplasty; gastrostomy; - Social history: Smoking status: Patient states former smoker of tobacco. No barriers to communication noted, The patient speaks fluent [place] Irish, Speaks appropriately for age. - Family history: Not pertinent. - : The pt / caregiver states he / she is on anticoagulants: coumadin. Home medication list is obtained from the patient. - Exposure Risk Screening:: None identified. Vital Signs: 06/18 17:20 BP 113 / 60; Pulse 66; Resp 22; Temp 97.3(O); Pulse Ox 92% on 2 lpm NC; Weight 86.18 kg jmb / 189.99 lbs (R); Height 5 ft. 6 in. (167.64 cm) (R); Pain 0/10; 19:38 BP 128 / 73; Pulse 73; Resp 18; Temp 97.5(O); Pulse Ox 96% on R/A; Pain 0/10; jmb 21:39 BP 99 / 55; Pulse 82; Resp 22; Temp 97.5; Pulse Ox 91% on R/A; Pain 0/10; jmb 21:51 BP 94 / 51 (auto/); jmb 21:51 Pulse 48 MON; Pulse Ox 78% ; jmb 22:16 BP 92 / 50 (auto/); jmb 22:16 Pulse 68 MON; Pulse Ox 80% ; jmb 22:17 Pulse 66 MON; Pulse Ox 87% ; jmb 22:21 BP 107 / 62 (auto/); jmb 22:36 BP 117 / 65 (auto/); Pulse 68; Resp 22; Pulse Ox 91% on 3 lpm NC; jmb 22:59 BP 100 / 59 (auto/); cf2 23:00 Pulse Ox 77% ; cf2 23:29 BP 98 / 55 (auto/); cf2 23:37 Pulse Ox 72% ; cf2 23:59 Pulse Ox 91% ; cf2 23:59 BP 105 / 70 (auto/); cf2 06/19 00:29 Pulse Ox 93% ; cf2 00:29 BP 116 / 65 (auto/); cf2 00:59 Pulse Ox 93% ; cf2 00:59 BP 107 / 69 (auto/); cf2 01:29 Pulse Ox 92% ; cf2 01:29 BP 121 / 61 (auto/); cf2 01:59 Pulse Ox 98% ; cf2 01:59 BP 114 / 62 (auto/); cf2 02:29 BP 122 / 68 (auto/); cf2 02:29 Pulse Ox 98% ; cf2 06:06 BP 106 / 56 LA Sitting; Pulse 68; Resp 20; Temp 98.4(T); Pulse Ox 96% on 2.0 lpm NC; rw1 Pain 0/10; 14:25 BP 114 / 58; Pulse 77; Resp 20; Temp 98; Pulse Ox 94% ; mk4 06/18 17:20 Body Mass Index 30.67 (86.18 kg, 167.64 cm) donna MDM: 06/18 18:17 Consult PFS/PSA/Technical Research Scientist ordered. ml 18:17 Consult PFS/PSA/Technical Research Scientist: Patient's case requires discussion with on-call ml Psychiatrist ordered. 18:17 PSA/PFS to call Nursing Mercerizing Range Controller, to enter patient data on [place] Safe Act if patient ml involuntarily admitted or transferred for SI or HI ordered. 18:17 Confirm accurate psychiatric medication list and times of last dosage ordered. ml 18:17 Detain Pt Until Medically/PFS Cleared ordered. ml 18:18 Acetaminophen Level Ordered. EDMS 18:18 Basic Metabolic Profile Ordered. EDMS 18:18 Complete Blood Count Ordered. EDMS 18:18 Drug Eval Toxicology ED Only Ordered. EDMS 18:18 Ethyl Alcohol (ethanol) Ordered. EDMS 18:18 Liver Profile Ordered. EDMS 18:18 Salicylate Level Ordered. EDMS 18:18 Thyroid Stimulating Hormone Ordered. EDMS 18:43 Misc. Nursing Order ordered. ml 18:43 PT/INR Ordered. EDMS 18:43 PTT Ordered. EDMS 19:13 Atenolol 50 mg PO once ordered. jmb 19:13 Atorvastatin 80 mg PO once ordered. jmb 19:13 Ferrous Sulfate 325 mg PO once ordered. jmb 19:13 omeprazole Delayed Release Capsule 40 mg PO once; swallow whole (do not crush or chew) jmb OR open capsule, sprinkle contents over tablespoonful applesauce; swallow all immediately/do not chew pellets ordered. 19:13 Oxybutynin 5 mg PO once ordered. jmb 19:13 valACYclovir 500 mg PO once ordered. jmb 19:13 Warfarin 2 mg PO once ordered. jmb 19:31 Financial registration complete. gjb 20:31 Acetaminophen Level Reviewed. ml 20:31 Basic Metabolic Profile Reviewed. ml 20:31 Complete Blood Count Reviewed. ml 20:31 Salicylate Level Reviewed. ml 20:31 PT/INR Reviewed. ml 20:31 Drug Eval Toxicology ED Only Reviewed. ml 20:31 Ethyl Alcohol (ethanol) Reviewed. ml 20:31 Liver Profile Reviewed. ml 20:31 Thyroid Stimulating Hormone Reviewed. ml 20:31 PTT Reviewed. ml 06/19 02:03 Consult PFS/PSA/Technical Research Scientist complete. rb 02:04 Consult PFS/PSA/Technical Research Scientist: Patient's case requires discussion with on-call rb Psychiatrist complete. 02:04 PSA/PFS to call Nursing Mercerizing Range Controller, to enter patient data [place] Safe [place] if patient rb involuntarily admitted or transferred for SI or HI complete. 04:15 REGULAR DIET PLASTIC DURAN+DIET ordered. EDMS 05:27 ECG WITH READING ER PHYS+CARDIAG ordered. EDMS 05:41 Awaiting: The patient is awaiting psychiatric admission or transfer. All labs and pc investigations have been reviewed. The vital signs have been reviewed. The patient remains medically cleared for disposition. 05:41 Test interpretation: EKG. pc 08:26 Aspirin Delayed Release Tablet 81 mg PO once ordered. mk4 08:26 Fenofibrate Nanocrystallized 145 mg PO once; swallow whole; do not crush, chew, break, mk4 dissolve, or cut ordered. 08:26 Isosorbide Mononitrate 60 mg PO once ordered. mk4 08:26 Furosemide 40 mg PO once ordered. mk4 08:27 Nortriptyline 25 mg PO once ordered. mk4 08:28 Oxybutynin 5 mg PO once ordered. mk4 08:30 PARoxetine 50 mg PO once ordered. mk4 08:30 Spironolactone 12.5 mg PO once ordered. mk4 08:30 Topiramate 25 mg PO once ordered. mk4 08:35 omeprazole Delayed Release Capsule 20 mg PO once; swallow whole; do not crush/chew/cut mk4 OR may open and sprinkle contents over spoonful of applesauce; swallow all immediately/do not chew pellets ordered. 09:02 valACYclovir 1000 mg PO once ordered. mk4 10:40 Zylet Drops 0.3 %-0.5 % 1 drps Ophthalmic once; right eye twice a day pt may take own mk4 from locker ordered. 11:19 REGULAR DIET PLASTIC DURAN+DIET ordered. EDMS EC:41 Rate is 64 beats/min. Rhythm is regular, Normal Sinus Rhythm with 1st degree heart pc block. QRS [place] is Normal. MD interval is prolonged at 211 msec. QRS interval is normal. QT interval is normal. Q waves are Old in leads II, III, aVF. T waves are Normal. No ST changes noted. Clinical impression: Normal Sinus Rhythm, 1st degree heart block, Anterior MN - age indeterminate, and Inferior MN - age indeterminate. No change from previous ECG on June 05, 2016. Administered Medications: 06/18 19:39 Drug: Atenolol 50 mg [atenolol 25 mg tablet (2 tabs)] Route: PO; b :39 Drug: Atorvastatin 80 mg [atorvastatin 20 mg tablet (4 tabs)] Route: PO; b 19:39 Drug: omeprazole 40 mg [omeprazole 20 mg capsule,delayed release (2 caps)] Route: PO; b 19:39 Drug: valACYclovir 500 mg [valacyclovir 500 mg tablet (1 tabs)] Route: PO; b 20:31 Drug: Ferrous Sulfate 325 mg Route: PO; jmb 20:31 Drug: Oxybutynin 5 mg [oxybutynin chloride 5 mg tablet (1 tabs)] Route: PO; jmb 20:31 Drug: Warfarin 2 mg [warfarin 2 mg tablet (1 tabs)] Route: PO; jmb 06/19 08:34 CANCELLED (Duplicate Order): omeprazole Delayed Release Capsule 40 mg PO once; swallow mk4 whole (do not crush or chew) OR open capsule, sprinkle contents over tablespoonful applesauce; swallow all immediately/do not chew pellets 09:01 CANCELLED (Duplicate Order): valACYclovir 500 mg PO once mk4 09:49 Drug: Nortriptyline 25 mg Route: PO; mk4 09:49 Drug: Oxybutynin 5 mg Route: PO; mk4 09:49 Drug: PARoxetine 50 mg [paroxetine 10 mg tablet (5 tabs)] Route: PO; mk4 09:49 Drug: Spironolactone 12.5 mg Route: PO; mk4 09:49 Drug: Topiramate 25 mg Route: PO; mk4 09:49 Drug: omeprazole Delayed Release Capsule 20 mg Route: PO; mk4 09:50 Drug: Aspirin Delayed Release Tablet 81 mg Route: PO; 4 09:50 Drug: Fenofibrate Nanocrystallized 145 mg Route: PO; mk4 09:50 Drug: Isosorbide Mononitrate 60 mg Route: PO; mk4 09:50 Drug: Furosemide 40 mg [furosemide 20 mg tablet (2 tabs)] Route: PO; mk4 10:39 Drug: valACYclovir 1000 mg [valacyclovir 500 mg tablet (2 tabs)] Route: PO; mk4 10:40 Drug: Zylet Drops 0.3 %-0.5 % 1 drps Route: Ophthalmic; Site: right eye; 4 Signatures: Dispatcher [employer] EDMS Kody Burns MD MD pc Delaney-Rowland, Sarah, MD MD sd1 Jacquelin Sweet MD MD ml Guido, Flory, PSA PSA rb Rashaad Nicole gr2 Caden Hardwick RN RN jmb King, Margaret, RN RN mk4 Beck, Gabriela gjb The chart was reviewed and I authenticate all verbal orders and agree with the evaluation and treatment provided.Corrections: (The following items were deleted from the chart) 08:34 08:28 omeprazole Delayed Release Capsule 40 mg PO once; swallow whole (do not crush or mk4 chew) OR open capsule, sprinkle contents over tablespoonful applesauce; swallow all immediately/do not chew pellets ordered. Alireza 09:06/18 17:20 Home Meds: Valtrex 500 mg Oral tab 1 tab three times a day; donna Alireza 06/19 09:01 08:30 valACYclovir 500 mg PO once ordered. [place] [id number] 10:41 06/18 17:20 Home Meds: Tobramycin Opht; as directed; donna [facility] Chart Complete MTDD
--- NOTE | 2016-06-26 10:41 | EDDOCDS ---
Physician Documentation [facility] Name: Ngozi Tubbs Age: 60 yrs Sex: Female : 1955 Arrival Date: 06/18/2016 Time: 16:57 Bed OBSERVATION Private MD: Disposition: 06/19/16 11:25 Transfer ordered to [facility]. Diagnosis is Suicidal ideations. - Reason for transfer: Higher level of care. - Accepting physician is Dr. Aviles. - Condition is Stable. - Problem is an acute exacerbation. - Symptoms are unchanged. Historical: - Allergies: Morphine (Vomit); - Home Meds: 1. aspirin 81 mg Oral TbEC 1 tab once daily 2. atenolol 50 mg Oral tab nightly 3. atorvastatin 80 mg oral tab 1 tab once daily 4. Calcium + Vitamin D 600mg-400mg Oral 5. cyanocobalamin (vitamin B-12) 1,000 mcg/mL injection kit 1 mL once moly 6. fenofibrate 145mg oral once daily 7. ferrous sulfate 325 mg (65 mg iron) Oral cpER twice a day 8. isosorbide mononitrate 60 mg Oral Tb24 1 tab once daily 9. Lasix 40 mg Oral tab 1 tab once daily 10. nortriptyline 25 mg Oral cap daily 11. omeprazole 40 mg Oral cpDR 1 cap 2 times per day 12. oxybutynin chloride 5 mg Oral tab 1 tab 2 times per day 13. Oxygen 2 liters /min continuous 14. paroxetine HCl 50 mg Oral tab 1 tab once daily 15. spironolactone 12.5 mg Oral once daily 16. thera tears every hour 17. topiramate 25 mg oral tab 2 tabs 2 times per day 18. Vitamin D2 1.25mg oral once wkly 19. warfarin 2 mg Oral tab 1 tab once daily 20. Zylet 0.3-0.5 % ophthalmic drps 1 drop twice a day 21. Valtrex 1 gram oral tab 1 tab 3 times per day - PMHx: coronary atherosclerosis; Depression; GERD; hyperlipidemia; hypoxemia; Myocardial infarction; Osteoporosis; Pneumonia; seborrheic dermatitis; sleep apnea; Sleep Apnea w/o CPAP; Stroke; thrombosis of leg; - PSHx: laryngoplasty; Skin Graft; Knee surgery- Left; Left leg arterial embolectomy; thyroplasty; gastrostomy; - Social history: Smoking status: Patient states former smoker of tobacco. No barriers to communication noted, The patient speaks fluent [place], Speaks appropriately for age. - Family history: Not pertinent. - : The pt / caregiver states he / she is on anticoagulants: coumadin. Home medication list is obtained from the patient. - Exposure Risk Screening:: None identified. Vital Signs: 06/18 17:20 BP 113 / 60; Pulse 66; Resp 22; Temp 97.3(O); Pulse Ox 92% on 2 lpm NC; Weight 86.18 kg jmb / 189.99 lbs (R); Height 5 ft. 6 in. (167.64 cm) (R); Pain 0/10; 19:38 BP 128 / 73; Pulse 73; Resp 18; Temp 97.5(O); Pulse Ox 96% on R/A; Pain 0/10; jmb 21:39 BP 99 / 55; Pulse 82; Resp 22; Temp 97.5; Pulse Ox 91% on R/A; Pain 0/10; jmb 21:51 BP 94 / 51 (auto/); jmb 21:51 Pulse 48 MON; Pulse Ox 78% ; jmb 22:16 BP 92 / 50 (auto/); jmb 22:16 Pulse 68 MON; Pulse Ox 80% ; jmb 22:17 Pulse 66 MON; Pulse Ox 87% ; jmb 22:21 BP 107 / 62 (auto/); jmb 22:36 BP 117 / 65 (auto/); Pulse 68; Resp 22; Pulse Ox 91% on 3 lpm NC; jmb 22:59 BP 100 / 59 (auto/); cf2 23:00 Pulse Ox 77% ; cf2 23:29 BP 98 / 55 (auto/); cf2 23:37 Pulse Ox 72% ; cf2 23:59 Pulse Ox 91% ; cf2 23:59 BP 105 / 70 (auto/); cf2 06/19 00:29 Pulse Ox 93% ; cf2 00:29 BP 116 / 65 (auto/); cf2 00:59 Pulse Ox 93% ; cf2 00:59 BP 107 / 69 (auto/); cf2 01:29 Pulse Ox 92% ; cf2 01:29 BP 121 / 61 (auto/); cf2 01:59 Pulse Ox 98% ; cf2 01:59 BP 114 / 62 (auto/); cf2 02:29 BP 122 / 68 (auto/); cf2 02:29 Pulse Ox 98% ; cf2 06:06 BP 106 / 56 LA Sitting; Pulse 68; Resp 20; Temp 98.4(T); Pulse Ox 96% on 2.0 lpm NC; rw1 Pain 0/10; 14:25 BP 114 / 58; Pulse 77; Resp 20; Temp 98; Pulse Ox 94% ; mk4 06/18 17:20 Body Mass Index 30.67 (86.18 kg, 167.64 cm) donna MDM: 06/18 18:17 Consult PFS/PSA/[employer] ordered. ml 18:17 Consult PFS/PSA/[employer]lementary [employer]: Patient's case requires discussion with on-call ml Psychiatrist ordered. 18:17 PSA/PFS to call Nursing [employer], to enter patient data on [place] Safe Act if patient ml involuntarily admitted or transferred for SI or HI ordered. 18:17 Confirm accurate psychiatric medication list and times of last dosage ordered. ml 18:17 Detain Pt Until Medically/PFS Cleared ordered. ml 18:18 Acetaminophen Level Ordered. EDMS 18:18 Basic Metabolic Profile Ordered. EDMS 18:18 Complete Blood Count Ordered. EDMS 18:18 Drug Eval Toxicology ED Only Ordered. EDMS 18:18 Ethyl Alcohol (ethanol) Ordered. EDMS 18:18 Liver Profile Ordered. EDMS 18:18 Salicylate Level Ordered. EDMS 18:18 Thyroid Stimulating Hormone Ordered. EDMS 18:43 Misc. Nursing Order ordered. ml 18:43 PT/INR Ordered. EDMS 18:43 PTT Ordered. EDMS 19:13 Atenolol 50 mg PO once ordered. jmb 19:13 Atorvastatin 80 mg PO once ordered. jmb 19:13 Ferrous Sulfate 325 mg PO once ordered. jmb 19:13 omeprazole Delayed Release Capsule 40 mg PO once; swallow whole (do not crush or chew) jmb OR open capsule, sprinkle contents over tablespoonful applesauce; swallow all immediately/do not chew pellets ordered. 19:13 Oxybutynin 5 mg PO once ordered. jmb 19:13 valACYclovir 500 mg PO once ordered. jmb 19:13 Warfarin 2 mg PO once ordered. jmb 19:31 Financial registration complete. gjb 20:31 Acetaminophen Level Reviewed. ml 20:31 Basic Metabolic Profile Reviewed. ml 20:31 Complete Blood Count Reviewed. ml 20:31 Salicylate Level Reviewed. ml 20:31 PT/INR Reviewed. ml 20:31 Drug Eval Toxicology ED Only Reviewed. ml 20:31 Ethyl Alcohol (ethanol) Reviewed. ml 20:31 Liver Profile Reviewed. ml 20:31 Thyroid Stimulating Hormone Reviewed. ml 20:31 PTT Reviewed. ml 06/19 02:03 Consult PFS/PSA/[employer]lementary [employer] complete. rb 02:04 Consult PFS/PSA/Elementary [employer] Teacher: Patient's case requires discussion with on-call rb Psychiatrist complete. 02:04 PSA/PFS to call Nursing [employer], to enter patient data [place] Safe [place] if patient rb involuntarily admitted or transferred for SI or HI complete. 04:15 REGULAR DIET PLASTIC DURAN+DIET ordered. EDMS 05:27 ECG WITH READING ER PHYS+CARDIAG ordered. EDMS 05:41 Awaiting: The patient is awaiting psychiatric admission or transfer. All labs and pc investigations have been reviewed. The vital signs have been reviewed. The patient remains medically cleared for disposition. 05:41 Test interpretation: EKG. pc 08:26 Aspirin Delayed Release Tablet 81 mg PO once ordered. mk4 08:26 Fenofibrate Nanocrystallized 145 mg PO once; swallow whole; do not crush, chew, break, mk4 dissolve, or cut ordered. 08:26 Isosorbide Mononitrate 60 mg PO once ordered. mk4 08:26 Furosemide 40 mg PO once ordered. mk4 08:27 Nortriptyline 25 mg PO once ordered. mk4 08:28 Oxybutynin 5 mg PO once ordered. mk4 08:30 PARoxetine 50 mg PO once ordered. mk4 08:30 Spironolactone 12.5 mg PO once ordered. mk4 08:30 Topiramate 25 mg PO once ordered. mk4 08:35 omeprazole Delayed Release Capsule 20 mg PO once; swallow whole; do not crush/chew/cut mk4 OR may open and sprinkle contents over spoonful of applesauce; swallow all immediately/do not chew pellets ordered. 09:02 valACYclovir 1000 mg PO once ordered. mk4 10:40 Zylet Drops 0.3 %-0.5 % 1 drps Ophthalmic once; right eye twice a day pt may take own mk4 from locker ordered. 11:19 REGULAR DIET PLASTIC DURAN+DIET ordered. EDMS EC:41 Rate is 64 beats/min. Rhythm is regular, Normal Sinus Rhythm with 1st degree heart pc block. QRS [place] is Normal. CA interval is prolonged at 211 msec. QRS interval is normal. QT interval is normal. Q waves are Old in leads II, III, aVF. T waves are Normal. No ST changes noted. Clinical impression: Normal Sinus Rhythm, 1st degree heart block, Anterior ND - age indeterminate, and Inferior ND - age indeterminate. No change from previous ECG on June 05, 2016. Administered Medications: 06/18 19:39 Drug: Atenolol 50 mg [atenolol 25 mg tablet (2 tabs)] Route: PO; b :39 Drug: Atorvastatin 80 mg [atorvastatin 20 mg tablet (4 tabs)] Route: PO; b 19:39 Drug: omeprazole 40 mg [omeprazole 20 mg capsule,delayed release (2 caps)] Route: PO; b 19:39 Drug: valACYclovir 500 mg [valacyclovir 500 mg tablet (1 tabs)] Route: PO; b 20:31 Drug: Ferrous Sulfate 325 mg Route: PO; jmb 20:31 Drug: Oxybutynin 5 mg [oxybutynin chloride 5 mg tablet (1 tabs)] Route: PO; jmb 20:31 Drug: Warfarin 2 mg [warfarin 2 mg tablet (1 tabs)] Route: PO; jmb 06/19 08:34 CANCELLED (Duplicate Order): omeprazole Delayed Release Capsule 40 mg PO once; swallow mk4 whole (do not crush or chew) OR open capsule, sprinkle contents over tablespoonful applesauce; swallow all immediately/do not chew pellets 09:01 CANCELLED (Duplicate Order): valACYclovir 500 mg PO once mk4 09:49 Drug: Nortriptyline 25 mg Route: PO; mk4 09:49 Drug: Oxybutynin 5 mg Route: PO; mk4 09:49 Drug: PARoxetine 50 mg [paroxetine 10 mg tablet (5 tabs)] Route: PO; mk4 09:49 Drug: Spironolactone 12.5 mg Route: PO; mk4 09:49 Drug: Topiramate 25 mg Route: PO; mk4 09:49 Drug: omeprazole Delayed Release Capsule 20 mg Route: PO; mk4 09:50 Drug: Aspirin Delayed Release Tablet 81 mg Route: PO; 4 09:50 Drug: Fenofibrate Nanocrystallized 145 mg Route: PO; mk4 09:50 Drug: Isosorbide Mononitrate 60 mg Route: PO; mk4 09:50 Drug: Furosemide 40 mg [furosemide 20 mg tablet (2 tabs)] Route: PO; mk4 10:39 Drug: valACYclovir 1000 mg [valacyclovir 500 mg tablet (2 tabs)] Route: PO; mk4 10:40 Drug: Zylet Drops 0.3 %-0.5 % 1 drps Route: Ophthalmic; Site: right eye; 4 Signatures: Dispatcher [employer] EDMS Kody Burns MD MD pc Delaney-Rowland, Sarah, MD MD sd1 Jacquelin Sweet MD MD ml Guido, Flory, PSA PSA rb Rashaad Nicole gr2 Caden Hardwick RN RN jmb King, Margaret, RN RN mk4 Beck, Gabriela gjb The chart was reviewed and I authenticate all verbal orders and agree with the evaluation and treatment provided.Corrections: (The following items were deleted from the chart) 08:34 08:28 omeprazole Delayed Release Capsule 40 mg PO once; swallow whole (do not crush or mk4 chew) OR open capsule, sprinkle contents over tablespoonful applesauce; swallow all immediately/do not chew pellets ordered. Alireza 09:06/18 17:20 Home Meds: Valtrex 500 mg Oral tab 1 tab three times a day; donna Alireza 06/19 09:01 08:30 valACYclovir 500 mg PO once ordered. [place] [id number] 10:41 06/18 17:20 Home Meds: Tobramycin Opht; as directed; donna [facility] Chart Complete MTDD
== END 2016-06-19 14:28 ==
LOC: M ED 16:57
DX: R45.851 Suicidal ideations (principal); I25.10 Atherosclerotic heart disease of native coronary artery without angina pectoris; F32.9 Major depressive disorder, single episode, unspecified; K21.9 Gastro-esophageal reflux disease without esophagitis; E78.5 Hyperlipidemia, unspecified; R09.02 Hypoxemia; I25.2 Old myocardial infarction; M81.0 Age-related osteoporosis without current pathological fracture; L21.9 Seborrheic dermatitis, unspecified; G47.30 Sleep apnea, unspecified; Z86.73 Personal history of transient ischemic attack (TIA), and cerebral infarction without residual deficits; Z86.718 Personal history of other venous thrombosis and embolism; Z87.891 Personal history of nicotine dependence; Z79.01 Long term (current) use of anticoagulants; Z99.81 Dependence on supplemental oxygen; Z79.82 Long term (current) use of aspirin; Z79.899 Other long term (current) drug therapy; Z88.8 Allergy status to other drugs, medicaments and biological substances
CPT/HCPCS: 80048; 80076; 80306; 84443; 85027; 85610; 85730; 93005; 99285; G0480

== ENCOUNTER 2016-08-14 16:59 | Inpatient (IN) | payer MEDICARE, OTHER ==
[~2016-08-14] VITALS: Ht 167.6 cm; Wt 87.3 kg
[2016-08-14 18:35] LABS: MEAN CORPUSCULAR HEMOGLOBIN 33.1 pg (27.0-33.0); MEAN CORPUSCULAR HGB CONC 30.7 g/dl (32.0-36.5); MEAN CORPUSCULAR VOLUME 107.6 fl (80.0-96.0); PLATELET COUNT, AUTOMATED 314 k/mm3 (150-450); RED CELL DISTRIBUTION WIDTH 16.9 % (11.5-14.5); WHITE BLOOD COUNT 10.7 K/mm3 (4.0-10.0)
[2016-08-14 18:49] LABS: CALCIUM LEVEL 8.9 MG/DL (8.5-10.1); CREATININE FOR GFR 1.92 MG/DL (0.55-1.02); GLOMERULAR FILTRATION RATE 28.6 (>51); POTASSIUM SERUM 3.8 MEQ/L (3.5-5.1)
[2016-08-14] MEDS ORDERED: IPRATROPIUM 0.5MG/ALBUTEROL 2.5MG INH SOL UD 3ML (DUONEB)(J7620) NEB ONE (19:00)
[2016-08-14 19:06] LABS: NUCLEATED RED BLOOD CELL 2 % (0-0); POLYCHROMASIA 1+
[2016-08-14 19:07] LABS: ANISOCYTOSIS 1+
[2016-08-14 19:15] LABS: INR 2.56
--- NOTE | 2016-08-14 20:50 | REPUSA ---
CLINICAL HISTORY: Medicare - prior angio chest - shortness of breath. TECHNIQUE: Multiple axial CT images were obtained through chest without IV contrast material. COMMENTS: There is no evidence of pleural or parenchymal-based mass. There are no pleural effusions. There is no evidence of hilar or mediastinal lymphadenopathy. Heart is enlarged. There are left ventricular peripheral calcifications present compatible with an old infarct. Small hiatal hernia is seen. The gallbladder is distended contains large amount of hyperdense sludge as well as multiple calcified and cluster of gallstones. Chronic cholecystitis is suspected. Consider correlation with right upp er quadrant ultrasound. There is evidence of mild pulmonary edema and pulmonary venous congestive ch anges. The visualized portions of the liver are of uniform attenuation without mass or defect. There is no intra or extrahepatic biliary ductal dilatation. The spleen is unremarkable. The visualized pancrea s is of normal contour and attenuation characteristics. There is no evidence of adrenal mass. The v isualized portions of the kidneys present no abnormalities. The bony structures are free of lytic or blastic lesions. Multilevel degenerative changes are seen i nvolving the thoracic spine. Scattered calcifications are seen involving the aorta and visualized hai or branches compatible with atherosclerosis. IMPRESSION: 1. Heart is enlarged. There are left ventricular peripheral calcifications present compatible with an old infarct. There is evidence of mild pulmonary edema and pulmonary venous congestive changes. 2. Small hiatal hernia is seen. 3. The gallbladder is distended contains large amount of hyperdense sludge as well as multiple calci fied and cluster of gallstones. Chronic cholecystitis is suspected. Thank you for your kind referral of this patient. We appreciate the opportunity to participate in th is patient's care.
[2016-08-14] MEDS ORDERED: FUROSEMIDE 40 MG/4 ML VIAL (J1940) IV ONE (21:15)
[2016-08-14] MEDS ORDERED: ARTI99.0 OU (22:08)
[2016-08-14 23:56] VITALS: O2SAT 92
[2016-08-15] MEDS ORDERED: IPRATROPIUM 0.5MG/ALBUTEROL 2.5MG INH SOL UD 3ML (DUONEB)(J7620) NEB PRN (00:45)
[2016-08-15] MEDS ORDERED: POLYVINYL ALCOHOL OPHTH SOLN 15 ML(LIQUITEARS) OU PRN (00:45)
[2016-08-15 01:30] VITALS: BP 156/80
[2016-08-15] MEDS: IPRATROPIUM 0.5MG/ALBUTEROL 2.5MG INH SOL UD 3ML (DUONEB)(J7620) NEB SCH ×4 (01:55→20:00)
[2016-08-15] MEDS: oxyBUTYnin 5 MG TAB PO SCH ×3 (02:19→21:23)
[2016-08-15] MEDS: ATENOLOL 50 MG TAB PO SCH ×2 (02:20→21:24)
[2016-08-15] MEDS: WARFARIN SOD 2 MG TAB PO SCH ×2 (02:20→16:21)
[2016-08-15] MEDS: valACYclovir HCL 500 MG TAB PO SCH ×4 (02:21→21:23)
[2016-08-15] MEDS: FERROUS SULFATE 325MG TAB PO SCH ×3 (02:21→21:23)
[2016-08-15] MEDS: TOPIRAMATE (TopAMAX) 25 MG TAB PO SCH ×3 (02:21→21:24)
[2016-08-15] MEDS: OMEPRAZOLE 20 MG CAP PO SCH ×3 (02:22→21:23)
[2016-08-15] MEDS: NORTRIPTYLINE 25 MG CAP PO SCH ×2 (02:22→21:24)
--- NOTE | 2016-08-15 03:51 | HPE ---
DATE OF ADMISSION: 08/14/2016 REASON FOR ADMISSION: Shortness of breath. PRIMARY CARE PROVIDER: Dr. Lal HISTORY OF PRESENT ILLNESS: The patient is a 60-year-old female with past medical history significant for congestive heart failure, CAD, chronic hypoxia, KEYONNA on CPAP presented to the emergency room with shortness of breath. She was at home and her caregiver came to visit her and noted that she was having some shortness of breath called Dr. Lal who recommended that the patient be brought into the emergency room. In the emergency room, the patient was found to have a low oxygen level. She is normally on two liters at home at baseline and she was satting 95% on two liters. She was requiring a 50% Venti mask to bring up her oxygen saturation in the 90s. Hospitalist was called for the admission. At this time, the patient does not complain of any shortness of breath. She denies any chest pain, palpitations. Denies any headaches or dizziness. She was admitted under hospitalist service for [facility]. REVIEW OF SYSTEMS: 12-point review of systems was obtained all of which was negative except for those mentioned above. PAST MEDICAL HISTORY: Significant for congestive heart failure, CAD, CVA with right-sided deficits, gastroesophageal reflux disease, depression, hyperlipidemia, DVT, osteoporosis, chronic hypoxia on CPAP. PAST SURGICAL HISTORY: Significant for skin graft, left knee surgery, left leg arterial surgery, laryngoplasty. SOCIAL HISTORY: The patient used to smoke quit 25 years ago. No alcohol use. Lives at home alone. FAMILY HISTORY: Noncontributory. HOME MEDICATIONS: Include - artificial tears as needed for dry eyes - aspirin 81 mg by mouth daily - Tylenol 50 mg at bedtime - atorvastatin 80 mg by mouth daily - vitamin D and calcium one tablet by mouth daily - fenofibrate 145 mg by mouth daily - ferrous sulfate 325 mg by mouth twice a day - Lasix 20 mg at bedtime, 40 mg in the morning - isosorbide mononitrate 60 mg by mouth daily - nitroglycerin sublingual as needed for angina - nortriptyline 25 mg at bedtime - omeprazole 20 mg by mouth twice a day - oxybutynin 5 mg by mouth twice a day - paroxetine 40 mg by mouth daily and 50 mg by mouth daily - spironolactone 12.5 mg by mouth daily - Topamax 50 mg by mouth twice a day - vitamin D 50,000 units weekly - Coumadin 2 mg at bedtime PHYSICAL FINDINGS ON ADMISSION: Blood pressure 140/72, pulse ox 92% on two liters at this time, pulse 72, temperature 99.4, respiratory rate 20. HEENT: Pupils equal, reactive to light and accommodation. NECK: Supple. No JVD. LUNGS: Clear to auscultation bilaterally. ABDOMEN: Soft, nontender, nondistended. EXTREMITIES: No clubbing or cyanosis. The patient has bilateral +1 lower extremity edema. LABORATORY FINDINGS: WBC 10.7, hemoglobin 12.9, hematocrit 42.2, platelets 314. Sodium 136, potassium 3.8, chloride 95, BUN 31, creatinine 1.92, fasting glucose 148, BNP 807, INR 2.56. ASSESSMENT AND PLAN: 1. Shortness of breath likely secondary to congestive heart failure versus COPD exacerbation. We will continue to monitor the patient's oxygenation, titrate to keep oxygen saturation between 88 and 92. The patient is normally on two liters nasal cannula continuously at home. We will continue Lasix IV. She received one dose of 40 mg IV Lasix in the emergency room. Continue DuoNebs as needed and scheduled. 2. History of coronary artery disease. We will continue the patient's beta yayo. 3. History of DVT. She is on Coumadin. INR is therapeutic at 2.5. 4. Frilx-nh-fxpistg kidney disease, baseline creatinine is around 1.7, currently 1.9. Will continue to monitor. Continue the patient's Lasix at this time. 5. Congestive heart failure exacerbation. We will start the patient on IV Lasix. Monitor intake and output and daily weights. Last echocardiogram was done in [address] Grimaldo, which showed an EF of 40%. The patient has a mixed systolic and diastolic congestive heart failure. 6. History of depression. Continue the patient's home medication. 7. DVT prophylaxis. Continue Coumadin. The patient will be signed out to family practice group in the morning.
[2016-08-15 06:00] VITALS: BP 131/76
--- NOTE | 2016-08-15 07:18 | REP ---
AP PORTABLE CHEST: 08/14/2016 COMPARISON: 01/16/2013, 08/03/2009. CLINICAL HISTORY: Dyspnea and cough. Lungs are adequately inflated. This upright portable chest shows cardiomegaly with left atrial and ventricular enlargement. Pulmonary as are prominent centrally. There is venous hypertension. Some early interstitial edema suggested with indistinct vessel margins, more on the left than right. No gross effusion or dense consolidation, but some basilar atelectatic change on the left noted. The posterior lower lung zones are not well visualized on this portable chest. IMPRESSION: 1. Cardiomegaly with left atrial and ventricular enlargement, pulmonary venous hypertension and some early interstitial edema suspected. There is subsegmental atelectatic change in the left base. No effusion or dense consolidation with air bronchograms. Posterior lower lung zones are not well evaluated but the diaphragms are distinct throughout. Signed by Jett Anderson MD 08/15/2016 04:20 P
[2016-08-15 07:26] LABS: BASO % 0.3 % (0.0-1.0); EOS % 0.5 % (0.0-3.0); LARGE UNSTAINED CELL # 0.1 K/mm3 (0.0-0.4); LARGE UNSTAINED CELL % 0.8 % (0.0-4.0); LYMPH # 0.7 K/mm3 (1.5-4.5); LYMPH % 6.6 % (24.0-44.0); MEAN CORPUSCULAR HEMOGLOBIN 33.3 pg (27.0-33.0); MEAN CORPUSCULAR HGB CONC 30.9 g/dl (32.0-36.5); MEAN CORPUSCULAR VOLUME 107.8 fl (80.0-96.0); MONO # 0.5 K/mm3 (0.0-0.8); NEUTROPHILS # 8.1 K/mm3 (1.8-7.7); NEUTROPHILS % 86.9 % (36.0-66.0); PLATELET COUNT, AUTOMATED 273 k/mm3 (150-450); WHITE BLOOD COUNT 9.3 K/mm3 (4.0-10.0)
[2016-08-15 07:42] LABS: INR 2.26
[2016-08-15 07:50] LABS: ALBUMIN 3.6 GM/DL (3.2-5.2); ALBUMIN/GLOBULIN RATIO 1.09 (1.00-1.93); BILIRUBIN,TOTAL 1.4 MG/DL (0.2-1.0); CALCIUM LEVEL 8.3 MG/DL (8.5-10.1); CREATININE FOR GFR 1.51 MG/DL (0.55-1.02); GLOMERULAR FILTRATION RATE 37.7 (>51); MAGNESIUM LEVEL 2.1 MG/DL (1.8-2.4); POTASSIUM SERUM 3.2 MEQ/L (3.5-5.1); TOTAL PROTEIN 6.9 GM/DL (6.4-8.2)
[2016-08-15] MEDS ORDERED: CALCIUM/VITAMIN D 500 MG TAB PO SCH (09:00)
[2016-08-15] MEDS: ASPIRIN 81 MG ENTERIC TAB PO SCH (09:30)
[2016-08-15] MEDS: FUROSEMIDE 40 MG/4 ML VIAL (J1940) IV SCH (09:30)
[2016-08-15] MEDS: ATORVASTATIN 20 MG TAB PO SCH (09:31)
[2016-08-15] MEDS: PARoxetine 20 MG TAB PO SCH (09:31)
[2016-08-15] MEDS: PARoxetine 10MG TABLET PO SCH (09:31)
[2016-08-15] MEDS: SPIRONOLACTONE 25 MG TAB PO SCH (09:32)
[2016-08-15] MEDS: FENOFIBRATE 145 MG TAB (TRICOR) PO SCH (09:32)
[2016-08-15] MEDS: ISOSORBIDE MON. (IMDUR) 60 MG XR TAB PO SCH (09:34)
[2016-08-15] MEDS: CALCIUM/VITAMIN D 500 MG TAB PO SCH (10:50)
[2016-08-15 14:00] VITALS: BP 96/53
--- NOTE | 2016-08-15 14:10 | IPNPDOC ---
Subjective Date Seen The patient was seen on 08/15/16. Subjective Chief Complaint/HPI The patient is a 60-year-old female admitted with a reason for visit of Shortness Of Breath. Events since last encounter Seen this afternoon on [employer]. She feels better c diruesis. She's been weaned from NRB to venturi. Renal function improving c duiresis. General: Reports: Normal Appetite, Denies: Chills, Fatigue, Malaise, Night Sweats Pulmonary: Denies: Cough, Dyspnea Cardiovascular: Reports: Edema, Denies: Chest Pain, Orthopnea, Palpitations Gastrointestinal: Denies: Abdominal Pain, Constipation, Diarrhea, Nausea, Vomiting Genitourinary: Denies: Dysuria, Frequency, Incontinence, Retention Hematologic: Denies: Bleeding Excessively, Bruising Objective Physical Examination General Exam: Positive: Alert, No Acute Distress ENT Exam: Positive: Atraumatic, Mucous membr. moist/pink, Pharynx Normal Neck Exam: Positive: JVD, Supple Chest Exam: Positive: Diminished, Normal air movement, Other Heart Exam: Positive: Normal S1, Normal S2, Rate Normal, Regular Rhythm, Negative: Murmurs, Rubs Abdomen Exam: Positive: Normal bowel sounds, Soft, Negative: Hepatospenomegaly, Tenderness (negative rowe's) Extremity Exam: Positive: Edema (1+ pretibial) Skin Exam: Positive: Nl turgor and temperature, Negative: Breakdown, Rash Assessment /Plan Problems (1) Congestive heart failure with cardiomyopathy Status: Acute Problem Text: Echo 2014- EF 50%, apical wall akinesis c apical aneurysm. Improving c diuretic therapy. She is completely asymptomatic aside from her hypoxia. Continue c diuresis. Continue aldactone for distolic dysf 2g Na diet (2) Acute kidney failure Status: Acute Problem Text: Likely prerenal related to decompensated CHF. Resolved c diuresis. Baseline cr = 1.7. (3) Transaminitis Status: Acute Problem Text: Likely 2/2 biliary stasis although AP is WNL. Completely asymptomatic on exam. RUQ us ordered. Will likely need cholecystecomy for cholelithiasis and biliary stasis once acute cardiopulmonary processes are corrected (4) CVA (cerebral vascular accident) Status: Chronic Problem Text: Chronic, 2/2 cardiac thrombus Anticoagulated, therapeutic. At neurologic baseline. (5) Pulmonary edema Status: Acute Problem Text: 2/2 CHF. Treatment as per CHF. (6) CAD (coronary artery disease) Status: Chronic Problem Text: Continue home therapy- statin, bblocker, asa. (7) KEYONNA (obstructive sleep apnea) Status: Chronic Problem Text: Longstanding, untreated 2/2 noncompliance c CPAP. (8) Hypokalemia Status: Acute Problem Text: Repleted. Recheck in AM. 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 She's therapeutically anticoagulated. Plan/VTE VTE Prophylaxis Ordered?: Yes (coumadin) VS, I&O, 24H, Fishbone Vital Signs/I&O Vital Signs Date Time Temp Pulse Resp B/P Pulse Ox O2 Delivery O2 Flow Rate FiO2 08/15/16 11:00 Venturi Mask 35 08/15/16 09:34 151/80 08/15/16 06:00 96.7 66 18 90 08/15/16 01:45 2.0 I&O- Last 24 Hours up to 6 AM 08/15/16 06:00 Intake Total 60 ml Output Total 700 ml Balance -640 ml Laboratory Data 24H LABS Laboratory Tests 2 08/14/16 18:18: Anion Gap 6L, Anisocytosis 1+, B-Type Natriuretic Peptide 807H, White Blood Count 10.7H, Red Blood Count 3.92L, Hemoglobin 12.9, Hematocrit 42.2, Mean Corpuscular Volume 107.6H, Mean Corpuscular Hemoglobin 33.1H, Mean Corpuscular Hemoglobin Concent 30.7L, Red Cell Distribution Width 16.9H, Platelet Count 314 , Neutrophils (%) (Auto) , Lymphocytes (%) (Auto) , Monocytes (%) (Auto) , Eosinophils (%) (Auto) , Basophils (%) (Auto) , Neutrophils # (Auto) , Lymphocytes # (Auto) , Monocytes # (Auto) , Eosinophils # (Auto) , Basophils # ( Auto) , Blood Urea Nitrogen 31H, Creatinine 1.92H, Sodium Level 137, Potassium Level 3.8, Chloride Level 95L, Carbon Dioxide Level 36H, Calcium Level 8.9, Total Creatine Kinase 99, Creatine Kinase MB 1.7, Creatine Kinase MB Relative Index 1.71, Glomerular Filtration Rate 28.6L, Large Unclassified Cells # , Large Unclassified Cells % , Lymphocytes (Manual) 6L, Macrocytosis 2+, Monocytes (Manual) 4, Neutrophils 90H, Nucleated Red Blood Cells 2H, Platelet Estimate NORMAL, Polychromasia 1+, Prothromb Time International Ratio 2.56, Prothrombin Time 27.6H, Troponin I 0.02 08/15/16 06:44: Anion Gap 6L, White Blood Count 9.3, Red Blood Count 3.89L, Hemoglobin 13.0, Hematocrit 42.0, Mean Corpuscular Volume 107.8H, Mean Corpuscular Hemoglobin 33.3H, Mean Corpuscular Hemoglobin Concent 30.9L, Red Cell Distribution Width 17.0H, Platelet Count 273, Neutrophils (%) (Auto) 86.9H, Lymphocytes (%) (Auto) 6.6L, Monocytes (%) (Auto) 5.0, Eosinophils (%) (Auto) 0.5, Basophils (%) (Auto ) 0.3, Neutrophils # (Auto) 8.1H, Lymphocytes # (Auto) 0.7L, Monocytes # (Auto) 0.5, Eosinophils # (Auto) 0.0, Basophils # (Auto) 0.0, Blood Urea Nitrogen 24H, Creatinine 1.51H, Sodium Level 139, Potassium Level 3.2L, Chloride Level 91L, Carbon Dioxide Level 42H, Calcium Level 8.3L, Glomerular Filtration Rate 37.7L, Large Unclassified Cells # 0.1, Large Unclassified Cells % 0.8, Prothromb Time International Ratio 2.26, Prothrombin Time 25.0H, Aspartate Amino Transf (AST/ SGOT) 2031H, Alanine Aminotransferase (ALT/SGPT) 1302H, Alkaline Phosphatase 62 , Total Bilirubin 1.4H, Total Protein 6.9, Albumin 3.6, Albumin/Globulin Ratio 1.09, Magnesium Level 2.1 CBC/BMP Laboratory Tests 08/14/16 18:18 Calcium Level 8.9, Total Creatine Kinase 99, Red Blood Count 3.92 L, Mean Corpuscular Volume 107.6 H, Mean Corpuscular Hemoglobin 33.1 H, Mean Corpuscular Hemoglobin Concent 30.7 L, Red Cell Distribution Width 16.9 H, Neutrophils (%) (Auto) , Lymphocytes (%) (Auto) , Monocytes (%) (Auto) , Eosinophils (%) (Auto) , Basophils (%) (Auto) , Neutrophils # (Auto) , Lymphocytes # (Auto) , Monocytes # (Auto) , Eosinophils # (Auto) , Basophils # ( Auto) 08/15/16 06:44 Calcium Level 8.3 L, Red Blood Count 3.89 L, Mean Corpuscular Volume 107.8 H, Mean Corpuscular Hemoglobin 33.3 H, Mean Corpuscular Hemoglobin Concent 30.9 L, Red Cell Distribution Width 17.0 H, Neutrophils (%) (Auto) 86.9 H, Lymphocytes ( %) (Auto) 6.6 L, Monocytes (%) (Auto) 5.0, Eosinophils (%) (Auto) 0.5, Basophils (%) (Auto) 0.3, Neutrophils # (Auto) 8.1 H, Lymphocytes # (Auto) 0.7 L , Monocytes # (Auto) 0.5, Eosinophils # (Auto) 0.0, Basophils # (Auto) 0.0, Aspartate Amino Transf (AST/SGOT) 2031 H, Alanine Aminotransferase (ALT/SGPT) 1302 H, Alkaline Phosphatase 62, Total Bilirubin 1.4 H, Total Protein 6.9, Albumin 3.6 AMAURI MUSA DO Aug 15, 2016 14:10
[2016-08-15] MEDS ORDERED: POTASSIUM CHLORIDE 10 MEQ SR TABLET PO ONE (14:15)
--- NOTE | 2016-08-15 18:54 | REP ---
LIVER ULTRASOUND: HISTORY: Increased transaminases and gallbladder sludge seen on previous CT 08/14/2016. Multiple ultrasonographic images of the gallbladder show multiple echogenic foci within the gallbladder lumen which cast acoustic shadows. This is seen in conjunction with low level echoes throughout the gallbladder and diffuse gallbladder wall thickening without pericholecystic edema. The common bile duct measures 3 mm. The pancreas is unremarkable. Multiple ultrasonographic images of the liver show no evidence of a mass or ductal dilatation. The imaged portion of the right kidney is unremarkable. IMPRESSION: Cholelithiasis, sludge formation and a mildly diffusely thickened gallbladder wall without ultrasonographic evidence of acute cholecystitis, however, correlate clinically. Signed by Italo Lange DO 08/15/2016 07:09 P
[2016-08-15 19:51] VITALS: O2SAT 90
[2016-08-15 22:00] VITALS: BP 118/70
[2016-08-16] MEDS: IPRATROPIUM 0.5MG/ALBUTEROL 2.5MG INH SOL UD 3ML (DUONEB)(J7620) NEB SCH ×4 (02:33→19:36)
[2016-08-16 06:00] VITALS: BP 136/72
[2016-08-16 06:57] LABS: INR 2.66
[2016-08-16 07:15] LABS: BASO % 0.3 % (0.0-1.0); EOS # 0.1 K/mm3 (0.0-0.50); EOS % 1.4 % (0.0-3.0); LARGE UNSTAINED CELL # 0.1 K/mm3 (0.0-0.4); LARGE UNSTAINED CELL % 1.2 % (0.0-4.0); LYMPH # 0.8 K/mm3 (1.5-4.5); LYMPH % 14.1 % (24.0-44.0); MEAN CORPUSCULAR HGB CONC 29.8 g/dl (32.0-36.5); MEAN CORPUSCULAR VOLUME 110.7 fl (80.0-96.0); MONO # 0.4 K/mm3 (0.0-0.8); MONO % 6.8 % (0.0-5.0); NEUTROPHILS # 4.2 K/mm3 (1.8-7.7); NEUTROPHILS % 76.2 % (36.0-66.0); PLATELET COUNT, AUTOMATED 288 k/mm3 (150-450); WHITE BLOOD COUNT 5.5 K/mm3 (4.0-10.0)
[2016-08-16 07:19] LABS: ALBUMIN 3.5 GM/DL (3.2-5.2); ALBUMIN/GLOBULIN RATIO 0.9 (1.00-1.93); CALCIUM LEVEL 9.1 MG/DL (8.5-10.1); CREATININE FOR GFR 1.48 MG/DL (0.55-1.02); GLOMERULAR FILTRATION RATE 38.6 (>51); MAGNESIUM LEVEL 2.3 MG/DL (1.8-2.4); POTASSIUM SERUM 4.4 MEQ/L (3.5-5.1); TOTAL PROTEIN 7.4 GM/DL (6.4-8.2)
[2016-08-16] MEDS: FUROSEMIDE 40 MG/4 ML VIAL (J1940) IV SCH (09:35)
[2016-08-16] MEDS: FENOFIBRATE 145 MG TAB (TRICOR) PO SCH (09:35)
[2016-08-16] MEDS: ATORVASTATIN 20 MG TAB PO SCH (09:35)
[2016-08-16] MEDS: oxyBUTYnin 5 MG TAB PO SCH ×2 (09:35→22:00)
[2016-08-16] MEDS: ISOSORBIDE MON. (IMDUR) 60 MG XR TAB PO SCH (09:36)
[2016-08-16] MEDS: PARoxetine 20 MG TAB PO SCH (09:36)
[2016-08-16] MEDS: PARoxetine 10MG TABLET PO SCH (09:36)
[2016-08-16] MEDS: TOPIRAMATE (TopAMAX) 25 MG TAB PO SCH ×2 (09:36→22:01)
[2016-08-16] MEDS: valACYclovir HCL 500 MG TAB PO SCH ×3 (09:36→22:01)
[2016-08-16] MEDS: ASPIRIN 81 MG ENTERIC TAB PO SCH (09:37)
[2016-08-16] MEDS: SPIRONOLACTONE 25 MG TAB PO SCH (09:37)
[2016-08-16] MEDS: CALCIUM/VITAMIN D 500 MG TAB PO SCH (09:37)
[2016-08-16] MEDS: FERROUS SULFATE 325MG TAB PO SCH ×2 (09:37→21:59)
[2016-08-16] MEDS: OMEPRAZOLE 20 MG CAP PO SCH ×2 (09:37→22:00)
[2016-08-16 14:00] VITALS: BP 108/57
--- NOTE | 2016-08-16 15:13 | IPN ---
DATE: 08/14/2016 Ngozi is seen on [facility]. She looks good and "I have been sleeping and feeling the best that I have in a long time." She goes on to tell me that her daughter wants the patient to be placed in an assisted living or alf arrangement, but Ngozi does not want this. I pointed out that she just told me that under the care of nurses with assistance with her care and compliance with her medicine she feels "the best she has in a long time" and maybe she should consider the idea of placement. Her liver functions are abnormal. Her gallbladder ultrasound showed multiple stones. We have surgery seeing her. PHYSICAL EXAMINATION: Afebrile. Vital signs stable. LUNGS: Decreased breath sounds, clear. HEART: Regular rhythm. ABDOMEN: Soft, nontender. EXTREMITIES: Trace peripheral edema. LABORATORY DATA: AST is down to 830, ALT 1000, bilirubin normal. Creatinine is down to 1.5. White count 5.5, hemoglobin 13.6, platelets 288. INR 2.6. IMPRESSION: 1. Diastolic congestive heart failure (CHF) with acute exacerbation, now diuresed and compensated. She is responding well. Her renal function is improved with modest diuresis. We will continue her intravenous Lasix for now until her renal function starts to go the other way. 2. Acute kidney injury superimposed on chronic renal disease. Improved with diuresis. 3. Abnormal liver function tests. I suspect that she probably passed a biliary stone. Ultrasound showed multiple stones. Dr. Sheikh is going to see her in consultation and we discussed the case. The rest of her medical problems are stable. I advised her to strongly consider placement in a supervised living arrangement, but she is quite independent and resisting this. If she is felt to be requiring surgery for her gallbladder, would recommend cardiology consultation. She is well known to [facility]. She also should probably be bridged with Lovenox and warfarin held before surgery.
[2016-08-16] MEDS: WARFARIN SOD 2 MG TAB PO SCH (17:35)
[2016-08-16 22:00] VITALS: BP 107/60
[2016-08-16] MEDS: NORTRIPTYLINE 25 MG CAP PO SCH (22:00)
[2016-08-16] MEDS: ATENOLOL 50 MG TAB PO SCH (22:00)
[2016-08-17] MEDS: IPRATROPIUM 0.5MG/ALBUTEROL 2.5MG INH SOL UD 3ML (DUONEB)(J7620) NEB SCH ×4 (01:24→19:35)
[2016-08-17 06:00] VITALS: BP 146/68
[2016-08-17 07:06] LABS: ALBUMIN 3.3 GM/DL (3.2-5.2); ALBUMIN/GLOBULIN RATIO 0.87 (1.00-1.93); BILIRUBIN,TOTAL 0.7 MG/DL (0.2-1.0); CREATININE FOR GFR 1.2 MG/DL (0.55-1.02); GLOMERULAR FILTRATION RATE 49.1 (>51); MAGNESIUM LEVEL 2.5 MG/DL (1.8-2.4); POTASSIUM SERUM 3.9 MEQ/L (3.5-5.1); TOTAL PROTEIN 7.1 GM/DL (6.4-8.2)
[2016-08-17 07:21] LABS: MEAN CORPUSCULAR HEMOGLOBIN 33.8 pg (27.0-33.0); MEAN CORPUSCULAR HGB CONC 29.9 g/dl (32.0-36.5); MEAN CORPUSCULAR VOLUME 113.4 fl (80.0-96.0); PLATELET COUNT, AUTOMATED 258 k/mm3 (150-450); RED CELL DISTRIBUTION WIDTH 16.9 % (11.5-14.5); WHITE BLOOD COUNT 4.9 K/mm3 (4.0-10.0)
[2016-08-17 07:31] LABS: INR 2.58
[2016-08-17 08:05] LABS: BASOPHILS 1 % (0-4)
[2016-08-17 08:06] LABS: ANISOCYTOSIS 1+; HYPOCHROMASIA 2+
[2016-08-17 08:08] LABS: POLYCHROMASIA 1+
[2016-08-17] MEDS: oxyBUTYnin 5 MG TAB PO SCH ×2 (10:00→21:36)
[2016-08-17] MEDS: ISOSORBIDE MON. (IMDUR) 60 MG XR TAB PO SCH (10:00)
[2016-08-17] MEDS: CALCIUM/VITAMIN D 500 MG TAB PO SCH (10:00)
[2016-08-17] MEDS: ASPIRIN 81 MG ENTERIC TAB PO SCH (10:00)
[2016-08-17] MEDS: PARoxetine 10MG TABLET PO SCH (10:00)
[2016-08-17] MEDS: FENOFIBRATE 145 MG TAB (TRICOR) PO SCH (10:01)
[2016-08-17] MEDS: TOPIRAMATE (TopAMAX) 25 MG TAB PO SCH ×2 (10:01→21:34)
[2016-08-17] MEDS: OMEPRAZOLE 20 MG CAP PO SCH ×2 (10:01→21:35)
[2016-08-17] MEDS: ATORVASTATIN 20 MG TAB PO SCH (10:01)
[2016-08-17] MEDS: PARoxetine 20 MG TAB PO SCH (10:02)
[2016-08-17] MEDS: valACYclovir HCL 500 MG TAB PO SCH ×3 (10:02→21:35)
[2016-08-17] MEDS: FERROUS SULFATE 325MG TAB PO SCH ×2 (10:02→21:36)
[2016-08-17] MEDS: FUROSEMIDE 40 MG/4 ML VIAL (J1940) IV SCH (10:03)
[2016-08-17] MEDS: SPIRONOLACTONE 25 MG TAB PO SCH (10:03)
--- NOTE | 2016-08-17 10:41 | IPNPDOC ---
Subjective Date Seen The patient was seen on 08/17/16. Subjective Chief Complaint/HPI The patient is a 60-year-old female admitted with a reason for visit of Shortness Of Breath. Events since last encounter Seen this morning on [facility]. States she is feeling much better. No abd pain. AST/ ALT improving. General: Reports: Normal Appetite, Denies: Chills, Fatigue, Malaise, Night Sweats ENT: Denies: Dysphagia, Ear Pain, Head Aches Pulmonary: Denies: Cough, Dyspnea Gastrointestinal: Denies: Abdominal Pain, Constipation, Diarrhea, Nausea, Vomiting Objective Physical Examination General Exam: Positive: Alert, No Acute Distress ENT Exam: Positive: Atraumatic, Mucous membr. moist/pink, Pharynx Normal Neck Exam: Positive: JVD, Supple Chest Exam: Positive: Diminished, Normal air movement, Other Heart Exam: Positive: Normal S1, Normal S2, Rate Normal, Regular Rhythm, Negative: Murmurs, Rubs Abdomen Exam: Positive: Normal bowel sounds, Soft, Negative: Hepatospenomegaly, Tenderness (negative rowe's) Extremity Exam: Positive: Edema (1+ pretibial) Skin Exam: Positive: Nl turgor and temperature, Negative: Breakdown, Rash Assessment /Plan Problems (1) Congestive heart failure with cardiomyopathy Status: Acute Problem Text: Echo 2014- EF 50%, apical wall akinesis c apical aneurysm. Improving c diuretic therapy (lasix 40IV qd). She is completely asymptomatic aside from her hypoxia. Continue c diuresis (home regimen 40qam/20qhs) Continue aldactone for distolic dysf 2g Na diet (2) Acute kidney failure Status: Acute Problem Text: Likely prerenal related to decompensated CHF. Resolved c diuresis. Baseline cr = 1.7. (3) Transaminitis Status: Acute Problem Text: Likely 2/2 biliary stasis although AP is WNL. Completely asymptomatic on exam. RUQ us ordered. Sx consulted; will likely need cholecystecomy for cholelithiasis and biliary stasis once acute cardiopulmonary processes are corrected (4) CVA (cerebral vascular accident) Status: Chronic Problem Text: Chronic, 2/2 cardiac thrombus Anticoagulated, therapeutic. At neurologic baseline. (5) Pulmonary edema Status: Acute Problem Text: 2/2 CHF. Treatment as per CHF. (6) CAD (coronary artery disease) Status: Chronic Problem Text: Continue home therapy- statin, bblocker, asa. (7) KEYONNA (obstructive sleep apnea) Status: Chronic Problem Text: Longstanding, untreated 2/2 noncompliance c CPAP. (8) Hypokalemia Status: Acute Problem Text: Stable, resolved. Recheck in AM. 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 She's therapeutically anticoagulated. Will likely need cardiac clearance from [facility] prior to cholecystectomy. Plan/VTE VTE Prophylaxis Ordered?: Yes (coumadin) VS, I&O, 24H, Fishbone Vital Signs/I&O Vital Signs Date Time Temp Pulse Resp B/P Pulse Ox O2 Delivery O2 Flow Rate FiO2 08/17/16 10:00 146/68 08/17/16 06:00 95.6 73 18 90 NIPPV (BIPAP/CPAP) 08/16/16 18:46 35 08/16/16 14:00 15.0 I&O- Last 24 Hours up to 6 AM 08/17/16 05:59 Intake Total 1200 ml Output Total 1850 ml Balance -650 ml Laboratory Data 24H LABS Laboratory Tests 2 08/17/16 06:24: Blood Urea Nitrogen 19H, Creatinine 1.20H, Sodium Level 139, Potassium Level 3.9 , Chloride Level 94L, Carbon Dioxide Level 40H, Calcium Level 9.0, Aspartate Amino Transf (AST/SGOT) 286H, Alanine Aminotransferase (ALT/SGPT) 733H, Alkaline Phosphatase 58, Total Bilirubin 0.7, Total Protein 7.1, Albumin 3.3, Albumin/Globulin Ratio 0.87L, Anion Gap 5L, Anisocytosis 1+, Atypical Lymphocytes 1, White Blood Count 4.9, Red Blood Count 4.12, Hemoglobin 13.9, Hematocrit 46.7, Mean Corpuscular Volume 113.4H, Mean Corpuscular Hemoglobin 33.8H, Mean Corpuscular Hemoglobin Concent 29.9L, Red Cell Distribution Width 16.9H, Platelet Count 258, Neutrophils (%) (Auto) , Lymphocytes (%) (Auto) , Monocytes (%) (Auto) , Eosinophils (%) (Auto) , Basophils (%) (Auto) , Neutrophils # (Auto) , Lymphocytes # (Auto) , Monocytes # (Auto) , Eosinophils # (Auto) , Basophils # (Auto) , Basophils (Manual) 1, Glomerular Filtration Rate 49.1L, Hypochromasia 2+, Large Unclassified Cells # , Large Unclassified Cells % , Lymphocytes (Manual) 16, Macrocytosis 3+, Magnesium Level 2.5H, Monocytes (Manual) 8, Neutrophils 74, Platelet Estimate NORMAL, Polychromasia 1+ , Prothromb Time International Ratio 2.58, Prothrombin Time 27.7H CBC/BMP Laboratory Tests 08/17/16 06:24 Calcium Level 9.0, Aspartate Amino Transf (AST/SGOT) 286 H, Alanine Aminotransferase (ALT/SGPT) 733 H, Alkaline Phosphatase 58, Total Bilirubin 0.7 , Total Protein 7.1, Albumin 3.3, Red Blood Count 4.12, Mean Corpuscular Volume 113.4 H, Mean Corpuscular Hemoglobin 33.8 H, Mean Corpuscular Hemoglobin Concent 29.9 L, Red Cell Distribution Width 16.9 H, Neutrophils (%) (Auto) , Lymphocytes (%) (Auto) , Monocytes (%) (Auto) , Eosinophils (%) (Auto) , Basophils (%) (Auto) , Neutrophils # (Auto) , Lymphocytes # (Auto) , Monocytes # (Auto) , Eosinophils # (Auto) , Basophils # (Auto) AMAURI MUSA DO Aug 17, 2016 10:41
--- NOTE | 2016-08-17 12:05 | ECGEPIP ---
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
[2016-08-17 14:00] VITALS: BP 130/76
[2016-08-17] MEDS: WARFARIN SOD 2 MG TAB PO SCH (18:54)
[2016-08-17] MEDS: ATENOLOL 50 MG TAB PO SCH (21:35)
[2016-08-17] MEDS: NORTRIPTYLINE 25 MG CAP PO SCH (21:36)
[2016-08-17 22:00] VITALS: BP 120/70
[2016-08-18] MEDS: IPRATROPIUM 0.5MG/ALBUTEROL 2.5MG INH SOL UD 3ML (DUONEB)(J7620) NEB SCH ×4 (01:13→19:53)
[2016-08-18 06:00] VITALS: BP 118/65
[2016-08-18 06:33] LABS: BASO % 0.3 % (0.0-1.0); EOS # 0.2 K/mm3 (0.0-0.50); EOS % 2.6 % (0.0-3.0); LARGE UNSTAINED CELL # 0.1 K/mm3 (0.0-0.4); LARGE UNSTAINED CELL % 1.7 % (0.0-4.0); LYMPH # 0.6 K/mm3 (1.5-4.5); LYMPH % 8.2 % (24.0-44.0); MEAN CORPUSCULAR HEMOGLOBIN 33.2 pg (27.0-33.0); MEAN CORPUSCULAR VOLUME 110.5 fl (80.0-96.0); MONO # 0.3 K/mm3 (0.0-0.8); MONO % 4.9 % (0.0-5.0); NEUTROPHILS # 5.8 K/mm3 (1.8-7.7); NEUTROPHILS % 82.3 % (36.0-66.0); PLATELET COUNT, AUTOMATED 298 k/mm3 (150-450); RED CELL DISTRIBUTION WIDTH 16.3 % (11.5-14.5)
[2016-08-18 06:35] LABS: INR 2.43
[2016-08-18 06:47] LABS: ALBUMIN 3.5 GM/DL (3.2-5.2); ALBUMIN/GLOBULIN RATIO 0.97 (1.00-1.93); BILIRUBIN,TOTAL 0.7 MG/DL (0.2-1.0); CALCIUM LEVEL 9.1 MG/DL (8.5-10.1); CREATININE FOR GFR 1.17 MG/DL (0.55-1.02); GLOMERULAR FILTRATION RATE 50.6 (>51); MAGNESIUM LEVEL 2.4 MG/DL (1.8-2.4); POTASSIUM SERUM 4.3 MEQ/L (3.5-5.1); TOTAL PROTEIN 7.1 GM/DL (6.4-8.2)
[2016-08-18] MEDS: FUROSEMIDE 40 MG/4 ML VIAL (J1940) IV SCH (09:00)
[2016-08-18] MEDS: PARoxetine 10MG TABLET PO SCH (09:00)
[2016-08-18] MEDS: SPIRONOLACTONE 25 MG TAB PO SCH (09:00)
[2016-08-18] MEDS: TOPIRAMATE (TopAMAX) 25 MG TAB PO SCH ×2 (09:10→21:10)
[2016-08-18] MEDS: ATORVASTATIN 20 MG TAB PO SCH (09:11)
[2016-08-18] MEDS: FENOFIBRATE 145 MG TAB (TRICOR) PO SCH (09:11)
[2016-08-18] MEDS: PARoxetine 20 MG TAB PO SCH (09:12)
[2016-08-18] MEDS: valACYclovir HCL 500 MG TAB PO SCH ×3 (09:12→21:10)
[2016-08-18] MEDS: oxyBUTYnin 5 MG TAB PO SCH ×2 (09:13→21:11)
[2016-08-18] MEDS: FERROUS SULFATE 325MG TAB PO SCH ×2 (09:13→21:10)
[2016-08-18] MEDS: ASPIRIN 81 MG ENTERIC TAB PO SCH (09:13)
[2016-08-18] MEDS: OMEPRAZOLE 20 MG CAP PO SCH ×2 (09:13→21:10)
[2016-08-18] MEDS: ISOSORBIDE MON. (IMDUR) 60 MG XR TAB PO SCH (09:13)
[2016-08-18] MEDS: CALCIUM/VITAMIN D 500 MG TAB PO SCH (09:14)
[2016-08-18] MEDS: FUROSEMIDE 20 MG TAB PO SCH (11:12)
--- NOTE | 2016-08-18 12:00 | IPNPDOC ---
Subjective Date Seen The patient was seen on 08/18/16. Subjective Chief Complaint/HPI The patient is a 60-year-old female admitted with a reason for visit of Shortness Of Breath. Events since last encounter Pt denies any new issues. Denies CP, SOB, Abd pain. Constitutional: Denies: Chills, Fever Pulmonary: Denies: Dyspnea Cardiovascular: Denies: Chest Pain Gastrointestinal: Denies: Abdominal Pain, Nausea, Vomiting Objective Physical Examination General Exam: Positive: Alert, No Acute Distress ENT Exam: Positive: Atraumatic, Mucous membr. moist/pink, Pharynx Normal Neck Exam: Positive: JVD, Supple Chest Exam: Positive: Diminished, Normal air movement, Other Heart Exam: Positive: Normal S1, Normal S2, Rate Normal, Regular Rhythm, Negative: Murmurs, Rubs Abdomen Exam: Positive: Normal bowel sounds, Soft, Negative: Hepatospenomegaly, Tenderness Extremity Exam: Positive: Edema (1+ pretibial) Skin Exam: Positive: Nl turgor and temperature, Negative: Breakdown, Rash Assessment /Plan Problems (1) UTI (urinary tract infection) Status: Acute Problem Text: D1/7 cipro / UCX P (2) Congestive heart failure with cardiomyopathy Status: Acute Problem Text: 08/18 - D/C IV Lasix. Will start Po Lasix at 60 mg daily which is equivalent to Pt's home dose as Pt is on Lasix 40 mg qam and 20 mg qpm as outpt. Echo 2014- EF 50%, apical wall akinesis c apical aneurysm. Improving c diuretic therapy (lasix 40IV qd). She is completely asymptomatic aside from her hypoxia. Continue c diuresis (home regimen 40qam/20qhs) Continue aldactone for distolic dysf 2g Na diet (3) Acute kidney failure Status: Acute Problem Text: 08/18 - Creat 1.17 today. Likely prerenal related to decompensated CHF. Resolved c diuresis. Baseline cr ~1.0 (4) Transaminitis Status: Acute Problem Text: 08/18 - Trending down. AST 142, ALT 535 today. Likely 2/2 biliary stasis although AP is WNL. Completely asymptomatic on exam. RUQ us ordered. Sx consulted; will likely need cholecystecomy for cholelithiasis and biliary stasis once acute cardiopulmonary processes are corrected (5) CVA (cerebral vascular accident) Status: Chronic Problem Text: Chronic, 2/2 cardiac thrombus Anticoagulated, therapeutic. At neurologic baseline. (6) Pulmonary edema Status: Acute Problem Text: 2/2 CHF. Treatment as per CHF. (7) CAD (coronary artery disease) Status: Chronic Problem Text: Continue home therapy- statin, bblocker, asa. (8) KEYONNA (obstructive sleep apnea) Status: Chronic Problem Text: Longstanding, untreated 2/2 noncompliance c CPAP. 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 She's therapeutically anticoagulated. Will likely need cardiac clearance from [facility] prior to cholecystectomy. Plan/VTE VTE Prophylaxis Ordered?: Yes (coumadin) VS, I&O, 24H, Fishbone Vital Signs/I&O Vital Signs Date Time Temp Pulse Resp B/P Pulse Ox O2 Delivery O2 Flow Rate FiO2 08/18/16 09:13 118/65 08/18/16 08:10 BIPAP/CPAP 6.0 08/18/16 06:00 96.9 66 20 96 08/16/16 18:46 35 I&O- Last 24 Hours up to 6 AM 08/18/16 06:00 Intake Total 2340 ml Output Total 200 ml Balance 2140 ml Laboratory Data 24H LABS Laboratory Tests 2 08/18/16 06:20: Blood Urea Nitrogen 25H, Creatinine 1.17H, Sodium Level 136, Potassium Level 4.3 , Chloride Level 90L, Carbon Dioxide Level 41H, Calcium Level 9.1, Aspartate Amino Transf (AST/SGOT) 142H, Alanine Aminotransferase (ALT/SGPT) 535H, Alkaline Phosphatase 60, Total Bilirubin 0.7, Total Protein 7.1, Albumin 3.5, Albumin/Globulin Ratio 0.97L, Anion Gap 5L, White Blood Count 7.0, Red Blood Count 4.33, Hemoglobin 14.4, Hematocrit 47.9H, Mean Corpuscular Volume 110.5H, Mean Corpuscular Hemoglobin 33.2H, Mean Corpuscular Hemoglobin Concent 30.0L, Red Cell Distribution Width 16.3H, Platelet Count 298, Neutrophils (%) (Auto) 82.3H, Lymphocytes (%) (Auto) 8.2L, Monocytes (%) (Auto) 4.9, Eosinophils (%) ( Auto) 2.6, Basophils (%) (Auto) 0.3, Neutrophils # (Auto) 5.8, Lymphocytes # ( Auto) 0.6L, Monocytes # (Auto) 0.3, Eosinophils # (Auto) 0.2, Basophils # (Auto ) 0.0, Glomerular Filtration Rate 50.6L, Large Unclassified Cells # 0.1, Large Unclassified Cells % 1.7, Magnesium Level 2.4, Prothromb Time International Ratio 2.43, Prothrombin Time 26.5H CBC/BMP Laboratory Tests 08/18/16 06:20 Calcium Level 9.1, Aspartate Amino Transf (AST/SGOT) 142 H, Alanine Aminotransferase (ALT/SGPT) 535 H, Alkaline Phosphatase 60, Total Bilirubin 0.7 , Total Protein 7.1, Albumin 3.5, Red Blood Count 4.33, Mean Corpuscular Volume 110.5 H, Mean Corpuscular Hemoglobin 33.2 H, Mean Corpuscular Hemoglobin Concent 30.0 L, Red Cell Distribution Width 16.3 H, Neutrophils (%) (Auto) 82.3 H, Lymphocytes (%) (Auto) 8.2 L, Monocytes (%) (Auto) 4.9, Eosinophils (%) (Auto ) 2.6, Basophils (%) (Auto) 0.3, Neutrophils # (Auto) 5.8, Lymphocytes # (Auto) 0.6 L, Monocytes # (Auto) 0.3, Eosinophils # (Auto) 0.2, Basophils # (Auto) 0.0 Microbiology Microbiology 08/17/16 Urine Culture, Received Pending Nikos Badillo Aug 18, 2016 12:00 Dimitris Samano M.D. Aug 18, 2016 15:47
[2016-08-18 14:00] VITALS: BP 115/67
[2016-08-18] MEDS: CIPROFLOXACIN 500 MG TAB PO SCH (17:55)
[2016-08-18] MEDS: WARFARIN SOD 2 MG TAB PO SCH (17:55)
[2016-08-18 19:45] VITALS: O2SAT 95
[2016-08-18] MEDS: NORTRIPTYLINE 25 MG CAP PO SCH (21:10)
[2016-08-18] MEDS: ATENOLOL 50 MG TAB PO SCH (21:11)
[2016-08-18 22:00] VITALS: BP 117/75
[2016-08-19] VITALS: O2SAT 95
[2016-08-19] MEDS: IPRATROPIUM 0.5MG/ALBUTEROL 2.5MG INH SOL UD 3ML (DUONEB)(J7620) NEB SCH ×4 (00:06→20:25)
[2016-08-19 06:00] VITALS: BP 116/69
[2016-08-19] MEDS: CIPROFLOXACIN 500 MG TAB PO SCH ×2 (06:18→17:52)
[2016-08-19 06:22] VITALS: O2SAT 96
[2016-08-19 07:03] LABS: BASO % 0.3 % (0.0-1.0); EOS # 0.2 K/mm3 (0.0-0.50); EOS % 2.8 % (0.0-3.0); LARGE UNSTAINED CELL # 0.2 K/mm3 (0.0-0.4); LARGE UNSTAINED CELL % 2.7 % (0.0-4.0); LYMPH # 0.6 K/mm3 (1.5-4.5); LYMPH % 10.3 % (24.0-44.0); MEAN CORPUSCULAR HEMOGLOBIN 33.4 pg (27.0-33.0); MEAN CORPUSCULAR HGB CONC 30.3 g/dl (32.0-36.5); MEAN CORPUSCULAR VOLUME 110.1 fl (80.0-96.0); MONO # 0.4 K/mm3 (0.0-0.8); MONO % 6.5 % (0.0-5.0); NEUTROPHILS # 4.4 K/mm3 (1.8-7.7); NEUTROPHILS % 77.4 % (36.0-66.0); PLATELET COUNT, AUTOMATED 237 k/mm3 (150-450); RED CELL DISTRIBUTION WIDTH 16.2 % (11.5-14.5); WHITE BLOOD COUNT 5.7 K/mm3 (4.0-10.0)
[2016-08-19 07:11] LABS: ALBUMIN 3.3 GM/DL (3.2-5.2); ALBUMIN/GLOBULIN RATIO 0.83 (1.00-1.93); BILIRUBIN,TOTAL 0.7 MG/DL (0.2-1.0); CALCIUM LEVEL 9.4 MG/DL (8.5-10.1); CREATININE FOR GFR 1.25 MG/DL (0.55-1.02); GLOMERULAR FILTRATION RATE 46.9 (>51); MAGNESIUM LEVEL 2.3 MG/DL (1.8-2.4); POTASSIUM SERUM 4.4 MEQ/L (3.5-5.1); TOTAL PROTEIN 7.3 GM/DL (6.4-8.2)
[2016-08-19 07:21] LABS: INR 2.11
[2016-08-19] MEDS: valACYclovir HCL 500 MG TAB PO SCH ×3 (08:50→20:46)
[2016-08-19] MEDS: PARoxetine 10MG TABLET PO SCH (08:50)
[2016-08-19] MEDS: FERROUS SULFATE 325MG TAB PO SCH ×2 (08:51→20:47)
[2016-08-19] MEDS: PARoxetine 20 MG TAB PO SCH (08:51)
[2016-08-19] MEDS: oxyBUTYnin 5 MG TAB PO SCH ×2 (08:51→20:47)
[2016-08-19] MEDS: ISOSORBIDE MON. (IMDUR) 60 MG XR TAB PO SCH (08:51)
[2016-08-19] MEDS: ATORVASTATIN 20 MG TAB PO SCH (08:51)
[2016-08-19] MEDS: OMEPRAZOLE 20 MG CAP PO SCH ×2 (08:51→20:47)
[2016-08-19] MEDS: CALCIUM/VITAMIN D 500 MG TAB PO SCH (08:52)
[2016-08-19] MEDS: FUROSEMIDE 20 MG TAB PO SCH (08:52)
[2016-08-19] MEDS: SPIRONOLACTONE 25 MG TAB PO SCH (08:52)
[2016-08-19] MEDS: ASPIRIN 81 MG ENTERIC TAB PO SCH (08:52)
[2016-08-19] MEDS: FENOFIBRATE 145 MG TAB (TRICOR) PO SCH (08:52)
[2016-08-19] MEDS: TOPIRAMATE (TopAMAX) 25 MG TAB PO SCH ×2 (08:53→20:46)
--- NOTE | 2016-08-19 09:59 | IPNPDOC ---
Subjective Date Seen The patient was seen on 08/19/16. Subjective Chief Complaint/HPI Pt is eager to go home. Her family has concerns. She did however pass her HSE. She notes some slow improvement in her breathing. With ambulation this morning on 4 L pt sats dropped 79-84%, took some time to come up with rest. General: Reports: Fatigue Constitutional: Denies: Chills, Fever ENT: Denies: Head Aches Pulmonary: Reports: Cough, Dyspnea Cardiovascular: Denies: Chest Pain, Palpitations Gastrointestinal: Denies: Diarrhea, Nausea, Vomiting Neurological: Reports: Weakness Psych: Reports: Mood Normal Objective Physical Examination General Exam: Positive: Alert, No Acute Distress ENT Exam: Positive: Mucous membr. moist/pink Neck Exam: Positive: JVD, Supple Chest Exam: Positive: Diminished, Normal air movement, Other Heart Exam: Positive: Normal S1, Normal S2, Rate Normal, Regular Rhythm, Negative: Murmurs, Rubs Abdomen Exam: Positive: Normal bowel sounds, Soft, Negative: Hepatospenomegaly, Tenderness Extremity Exam: Positive: Edema (1+ pretibial) Skin Exam: Positive: Nl turgor and temperature, Negative: Breakdown, Rash Assessment /Plan Problems (1) UTI (urinary tract infection) Status: Acute Problem Text: D2/7 cipro 3/ UCX P (2) Congestive heart failure with cardiomyopathy Status: Acute Problem Text: 08/19 She does appear compensated on exam 08/18 - D/C IV Lasix. Will start Po Lasix at 60 mg daily which is equivalent to Pt's home dose as Pt is on Lasix 40 mg qam and 20 mg qpm as outpt. Echo 2014- EF 50%, apical wall akinesis c apical aneurysm. Improving c diuretic therapy (lasix 40IV qd). She is completely asymptomatic aside from her hypoxia. Continue c diuresis (home regimen 40qam/20qhs) Continue aldactone for distolic dysf 2g Na diet (3) Acute kidney failure Status: Resolved Problem Text: 08/19 - Scr 1.25 08/18 - Creat 1.17 today. Likely prerenal related to decompensated CHF. Resolved c diuresis. Baseline cr ~1.0 (4) Transaminitis Status: Acute Problem Text: 08/19 - cont to show improvement. 08/18 - Trending down. AST 142, ALT 535 today. Likely 2/2 biliary stasis although AP is WNL. Completely asymptomatic on exam. RUQ us ordered. Sx consulted; will likely need cholecystecomy for cholelithiasis and biliary stasis once acute cardiopulmonary processes are corrected (5) CVA (cerebral vascular accident) Status: Chronic Problem Text: Chronic, 2/2 cardiac thrombus Anticoagulated, therapeutic. At neurologic baseline. (6) Pulmonary edema Status: Acute Problem Text: 2/2 CHF. Treatment as per CHF. (7) CAD (coronary artery disease) Status: Chronic Problem Text: Continue home therapy- statin, bblocker, asa. (8) KEYONNA (obstructive sleep apnea) Status: Chronic Problem Text: Longstanding, untreated 2/2 noncompliance c CPAP. 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 She's therapeutically anticoagulated. Will likely need cardiac clearance from [facility] prior to cholecystectomy. Plan/VTE VTE Prophylaxis Ordered?: Yes (coumadin) Plan Family Medicine Attending Note: Patient seen this morning and again this afternoon. I d/w SALEEM Honeycutt and I agree with her note. Patient appears to be well compensated on exam in terms of heart failure, and she denies any SOB or cough, however I am concerned about low O2 sats with ambulation this morning. O2 at rest has been weaned to 3 L/min now. Will continue to wean O2 as tolerated and if she is able to ambulate tomorrow and maintain O2 sat >88%, will consider discharge home. Patient states that she takes care of herself at home and she was cleared by PT to go home with [facility], so despite her daughter's concerns and desire for her to go to Assisted Living, I think we must honor the patient's wishes and discharge home when ready. (KES) VS, I&O, 24H, Fishbone Vital Signs/I&O Vital Signs Date Time Temp Pulse Resp B/P Pulse Ox O2 Delivery O2 Flow Rate FiO2 08/19/16 08:51 116/69 08/19/16 06:22 96 BIPAP/CPAP 5.0 08/19/16 06:00 96.5 63 18 08/16/16 18:46 35 I&O- Last 24 Hours up to 6 AM 08/19/16 06:00 Intake Total 1700 ml Output Total 2470 ml Balance -770 ml Laboratory Data 24H LABS Laboratory Tests 2 08/19/16 06:41: Blood Urea Nitrogen 36H, Creatinine 1.25H, Sodium Level 136, Potassium Level 4.4 , Chloride Level 90L, Carbon Dioxide Level 42H, Calcium Level 9.4, Aspartate Amino Transf (AST/SGOT) 84H, Alanine Aminotransferase (ALT/SGPT) 373H, Alkaline Phosphatase 53, Total Bilirubin 0.7, Total Protein 7.3, Albumin 3.3, Albumin/ Globulin Ratio 0.83L, Anion Gap 4L, White Blood Count 5.7, Red Blood Count 4.25 , Hemoglobin 14.2, Hematocrit 46.8, Mean Corpuscular Volume 110.1H, Mean Corpuscular Hemoglobin 33.4H, Mean Corpuscular Hemoglobin Concent 30.3L, Red Cell Distribution Width 16.2H, Platelet Count 237, Neutrophils (%) (Auto) 77.4H , Lymphocytes (%) (Auto) 10.3L, Monocytes (%) (Auto) 6.5H, Eosinophils (%) (Auto ) 2.8, Basophils (%) (Auto) 0.3, Neutrophils # (Auto) 4.4, Lymphocytes # (Auto) 0.6L, Monocytes # (Auto) 0.4, Eosinophils # (Auto) 0.2, Basophils # (Auto) 0.0, Glomerular Filtration Rate 46.9L, Large Unclassified Cells # 0.2, Large Unclassified Cells % 2.7, Magnesium Level 2.3, Prothromb Time International Ratio 2.11, Prothrombin Time 23.7H CBC/BMP Laboratory Tests 08/19/16 06:41 Calcium Level 9.4, Aspartate Amino Transf (AST/SGOT) 84 H, Alanine Aminotransferase (ALT/SGPT) 373 H, Alkaline Phosphatase 53, Total Bilirubin 0.7 , Total Protein 7.3, Albumin 3.3, Red Blood Count 4.25, Mean Corpuscular Volume 110.1 H, Mean Corpuscular Hemoglobin 33.4 H, Mean Corpuscular Hemoglobin Concent 30.3 L, Red Cell Distribution Width 16.2 H, Neutrophils (%) (Auto) 77.4 H, Lymphocytes (%) (Auto) 10.3 L, Monocytes (%) (Auto) 6.5 H, Eosinophils (%) ( Auto) 2.8, Basophils (%) (Auto) 0.3, Neutrophils # (Auto) 4.4, Lymphocytes # ( Auto) 0.6 L, Monocytes # (Auto) 0.4, Eosinophils # (Auto) 0.2, Basophils # (Auto ) 0.0 Microbiology Microbiology 08/17/16 Urine Culture, Received Pending DANITA GIL PA-C Aug 19, 2016 09:59 SAEID SANCHEZ MD Aug 19, 2016 14:49
[2016-08-19] MEDS: MOM 30ML SUSPENSION UDC PO PRN (11:18)
[2016-08-19 14:00] VITALS: BP 106/57
[2016-08-19] MEDS: WARFARIN SOD 2 MG TAB PO SCH (16:43)
[2016-08-19] MEDS: TOBRAMYCIN OD SCH (20:46)
[2016-08-19] MEDS: NORTRIPTYLINE 25 MG CAP PO SCH (20:46)
[2016-08-19] MEDS: LOTEPREDNOL OD SCH (20:46)
[2016-08-19] MEDS: ATENOLOL 50 MG TAB PO SCH (20:47)
[2016-08-19 22:00] VITALS: BP 101/59
[2016-08-20 01:32] VITALS: O2SAT 94
[2016-08-20] MEDS: IPRATROPIUM 0.5MG/ALBUTEROL 2.5MG INH SOL UD 3ML (DUONEB)(J7620) NEB SCH ×3 (01:40→13:03)
[2016-08-20] MEDS: CIPROFLOXACIN 500 MG TAB PO SCH ×2 (05:25→15:27)
[2016-08-20 06:00] VITALS: BP 103/58
[2016-08-20 06:11] VITALS: O2SAT 98
[2016-08-20 06:46] LABS: INR 2.02
[2016-08-20 06:48] LABS: BASO % 0.3 % (0.0-1.0); EOS # 0.2 K/mm3 (0.0-0.50); EOS % 3.6 % (0.0-3.0); LARGE UNSTAINED CELL # 0.1 K/mm3 (0.0-0.4); LARGE UNSTAINED CELL % 2.2 % (0.0-4.0); LYMPH # 0.6 K/mm3 (1.5-4.5); LYMPH % 11.7 % (24.0-44.0); MEAN CORPUSCULAR HEMOGLOBIN 32.5 pg (27.0-33.0); MEAN CORPUSCULAR HGB CONC 29.2 g/dl (32.0-36.5); MEAN CORPUSCULAR VOLUME 111.3 fl (80.0-96.0); MONO # 0.3 K/mm3 (0.0-0.8); MONO % 6.9 % (0.0-5.0); NEUTROPHILS # 3.7 K/mm3 (1.8-7.7); NEUTROPHILS % 75.3 % (36.0-66.0); PLATELET COUNT, AUTOMATED 222 k/mm3 (150-450); RED CELL DISTRIBUTION WIDTH 16.1 % (11.5-14.5); WHITE BLOOD COUNT 4.9 K/mm3 (4.0-10.0)
[2016-08-20 07:01] LABS: ALBUMIN 3.5 GM/DL (3.2-5.2); ALBUMIN/GLOBULIN RATIO 0.95 (1.00-1.93); BILIRUBIN,TOTAL 0.7 MG/DL (0.2-1.0); CALCIUM LEVEL 8.8 MG/DL (8.5-10.1); CREATININE FOR GFR 1.3 MG/DL (0.55-1.02); GLOMERULAR FILTRATION RATE 44.8 (>51); MAGNESIUM LEVEL 2.7 MG/DL (1.8-2.4); POTASSIUM SERUM 3.8 MEQ/L (3.5-5.1); TOTAL PROTEIN 7.2 GM/DL (6.4-8.2)
[2016-08-20] MEDS: ATORVASTATIN 20 MG TAB PO SCH (08:24)
[2016-08-20] MEDS: MOM 30ML SUSPENSION UDC PO PRN (08:24)
[2016-08-20] MEDS: FUROSEMIDE 20 MG TAB PO SCH (08:25)
[2016-08-20] MEDS: OMEPRAZOLE 20 MG CAP PO SCH (08:25)
[2016-08-20] MEDS: FENOFIBRATE 145 MG TAB (TRICOR) PO SCH (08:25)
[2016-08-20] MEDS: TOPIRAMATE (TopAMAX) 25 MG TAB PO SCH (08:25)
[2016-08-20] MEDS: oxyBUTYnin 5 MG TAB PO SCH (08:25)
[2016-08-20] MEDS: SPIRONOLACTONE 25 MG TAB PO SCH (08:25)
[2016-08-20 08:26] VITALS: BP 103/58
[2016-08-20] MEDS: PARoxetine 20 MG TAB PO SCH (08:26)
[2016-08-20] MEDS: ISOSORBIDE MON. (IMDUR) 60 MG XR TAB PO SCH (08:26)
[2016-08-20] MEDS: ASPIRIN 81 MG ENTERIC TAB PO SCH (08:26)
[2016-08-20] MEDS: PARoxetine 10MG TABLET PO SCH (08:26)
[2016-08-20] MEDS: CALCIUM/VITAMIN D 500 MG TAB PO SCH (08:27)
[2016-08-20] MEDS: FERROUS SULFATE 325MG TAB PO SCH (08:27)
[2016-08-20] MEDS: valACYclovir HCL 500 MG TAB PO SCH (08:27)
[2016-08-20] MEDS: TOBRAMYCIN OD SCH (08:27)
[2016-08-20] MEDS: LOTEPREDNOL OD SCH (08:27)
[2016-08-20] MEDS ORDERED: CIPR500T89 PO (08:39)
[2016-08-20 14:00] VITALS: BP 128/71
--- NOTE | 2016-08-21 07:50 | DSES ---
DATE OF ADMISSION: 08/14/2016 DATE OF DISCHARGE: 08/20/2016 Private care physician: Dr. Nando Lal Attending today: Dr. Dimitris Samano. HISTORY: This is a 60-year-old female patient with a history of congestive heart failure, cardiomyopathy, coronary disease, obstructive sleep apnea who presented to [facility] Emergency Room with shortness of breath. She was at home with her caregiver who noticed she was having increased shortness of breath and they called Dr. Lal who advised evaluation in the emergency room. She was found to have low oxygen saturations in the emergency room on her chronic two liters of oxygen. She required 50% Venti mask to bring her oxygen saturations back up into the 90s. As a result the hospitalist was called for admission. During her hospitalization she was started on intravenous (IV) Lasix for congestive heart failure, mixed systolic and diastolic. She has had adequate diuresis with improvement in her respiratory function. She is ambulating throughout the floor and is doing well. She did have some difficulty maintaining her oxygen saturations with ambulation yesterday although she is doing reasonably well with this today, ambulating in the rahman at 91% on 4 liters. She required 2 liters at home before. We are going to discharge her michael on 4 liters but will need to follow this closely in the outpatient setting. She also was noted to have a transaminitis likely secondary to fluid overload. This has steadily improved during her hospitalization. She did have a liver ultrasound which as suggestive of cholelithiasis, sludge formation and mild diffusely thickened gallbladder without acute cholecystitis. Outpatient followup of this is recommend. DISCHARGE DIAGNOSES: 1. Acute on chronic diastolic, systolic congestive heart failure. 2. Cardiomyopathy. 3. Urinary tract infection. 4. Acute kidney failure. 5. Transaminitis. 6. Cerebral vascular accident. 7. Pulmonary edema. 8. Obstructive sleep apnea. 9. Heart aneurysm of the apical wall noted on echocardiogram in 2014. She is therapeutically anticoagulated. DISCHARGE MEDICATIONS: - Cipro 500 mg by mouth daily times five days for urinary tract infection (UTI) - aspirin 81 mg daily - Artificial Tears four times daily as needed for dry eyes - atenolol 50 mg daily - atorvastatin 80 mg daily - calcium with D 600/400 one tablet daily - fenofibrate 145 mg by mouth daily - ferrous sulfate 325 mg twice a day - furosemide 40 mg every morning, 20 mg in the evening - Isosorbide mononitrate ER 60 mg daily - nitroglycerin 0.4 mg sublingually as needed daily - nortriptyline 25 mg daily - omeprazole 20 mg twice a day - oxybutynin 5 mg by mouth twice a day - paroxetine 40 mg daily - paroxetine 10 mg daily - spironolactone 12.5 mg daily - Topamax 50 mg twice daily - Valtrex 1 gram by mouth three times a day - vitamin D 50,00 units every week - Coumadin 2 mg by mouth daily - Zylet 0.5/0.3% one drop twice daily DISCHARGE PLAN: Followup with Dr. Lal in one week. Activity should be as tolerated. Diet should be no added salt. She should have a PT/INR when she follows up in the office.
== END 2016-08-20 16:15 | disposition home health service (06) | DRG 292 ==
LOC: M ED 18:53 → M ED INP 22:51 → M MS5PR 08-15 01:21
PROVIDERS: ADMIT Internal Medicine; ATTEND Family Medicine
DX: I50.43 Acute on chronic combined systolic (congestive) and diastolic (congestive) heart failure (principal); J44.1 Chronic obstructive pulmonary disease with (acute) exacerbation; N17.9 Acute kidney failure, unspecified; N39.0 Urinary tract infection, site not specified; I25.3 Aneurysm of heart; I25.10 Atherosclerotic heart disease of native coronary artery without angina pectoris; G47.33 Obstructive sleep apnea (adult) (pediatric); K21.9 Gastro-esophageal reflux disease without esophagitis; F32.9 Major depressive disorder, single episode, unspecified; K80.70 Calculus of gallbladder and bile duct without cholecystitis without obstruction; E78.5 Hyperlipidemia, unspecified; E87.6 Hypokalemia; M81.0 Age-related osteoporosis without current pathological fracture; N18.9 Chronic kidney disease, unspecified; I69.398 Other sequelae of cerebral infarction; Z87.891 Personal history of nicotine dependence; Z79.82 Long term (current) use of aspirin; Z79.01 Long term (current) use of anticoagulants; Z79.899 Other long term (current) drug therapy; Z99.81 Dependence on supplemental oxygen; Z86.718 Personal history of other venous thrombosis and embolism

== ENCOUNTER 2016-10-04 11:52 | Emergency (ER) | payer MEDICARE, OTHER ==
[~2016-10-04] VITALS: Ht 167.6 cm; Wt 84.4 kg
[~2016-10-04 11:52] MED LIST changes: +ARTI99.0 OU; +CIPR500T89 PO; -PARO40TA PO; +PARO40TA2 PO
[2016-10-04 15:33] LABS: MEAN CORPUSCULAR HEMOGLOBIN 32.8 pg (27.0-33.0); MEAN CORPUSCULAR VOLUME 105.9 fl (80.0-96.0); RED CELL DISTRIBUTION WIDTH 15.1 % (11.5-14.5); WHITE BLOOD COUNT 7.1 K/mm3 (4.0-10.0)
[2016-10-04 15:42] LABS: METHADONE URINE NEGATIVE (NEGATIVE)
[2016-10-04 15:51] LABS: ALBUMIN 3.6 GM/DL (3.2-5.2); ALBUMIN/GLOBULIN RATIO 1.06 (1.00-1.93); ALKALINE PHOSPHATASE 54 U/L (45-117); ALT/SGPT 33 U/L (12-78); ANION GAP 4 MEQ/L (8-16); AST/SGOT 25 U/L (15-37); BILIRUBIN,DIRECT 0.1 MG/DL (0.0-0.2); BILIRUBIN,TOTAL 0.4 MG/DL (0.2-1.0); BLOOD UREA NITROGEN 18 MG/DL (7-18); CALCIUM LEVEL 8.9 MG/DL (8.5-10.1); CARBON DIOXIDE LEVEL 39 MEQ/L (21-32); CHLORIDE LEVEL 94 MEQ/L (98-107); CREATININE FOR GFR 0.98 MG/DL (0.55-1.02); GLOMERULAR FILTRATION RATE > 60.0 (>51); GLUCOSE, FASTING 120 MG/DL (70-105); POTASSIUM SERUM 3.9 MEQ/L (3.5-5.1); SODIUM LEVEL 137 MEQ/L (136-145)
[2016-10-04 16:48] VITALS: BP 155/89
== END 2016-10-04 16:49 | disposition home or self-care (01) ==
LOC: M ED 14:23
DX: F43.9 Reaction to severe stress, unspecified (principal); I10 Essential (primary) hypertension; J44.9 Chronic obstructive pulmonary disease, unspecified; F32.9 Major depressive disorder, single episode, unspecified; Z87.891 Personal history of nicotine dependence; Z79.01 Long term (current) use of anticoagulants; Z99.81 Dependence on supplemental oxygen; T39.014A Poisoning by aspirin, undetermined, initial encounter; Z79.899 Other long term (current) drug therapy
CPT/HCPCS: 80048; 80076; 80306; 84443; 85027; 85610; 99284; G0463; G0480

== ENCOUNTER → 2016-10-08 | Outpatient (REF) | payer MEDICARE, MEDICAID ==
[~2016-10-08] MED LIST changes: +ASPI81TAEC PO; +DULO1CAP PO; +TOPI50TA4 PO
[2016-10-08 16:22] LABS: INR 1.54
== END ==
LOC: M SFHCPLAZ 12:29
PROVIDERS: ATTEND Family Medicine
DX: Z51.81 Encounter for therapeutic drug level monitoring (principal); Z79.01 Long term (current) use of anticoagulants
CPT/HCPCS: 36415; 85610; G0463

== ENCOUNTER → 2016-10-23 | Outpatient (REF) | payer MEDICARE, MEDICAID ==
[~2016-10-23] MED LIST changes: +ACET-654 PO; +COUM1TAB19 PO; +CYAN1000VL IM; +CYMB1CAP4 PO; +DITR5TAB PO; +IMDUR PO; +IPRASOL4 NEB; +MULT1TAB10 PO
[2016-10-23 18:01] LABS: INR 1.79
== END ==
LOC: M SFHCPLAZ 16:16
PROVIDERS: ATTEND Family Medicine
DX: R73.01 Impaired fasting glucose (principal); Z51.81 Encounter for therapeutic drug level monitoring; Z79.01 Long term (current) use of anticoagulants
CPT/HCPCS: 36415; 83036; 85610; G0463

== ENCOUNTER 2016-11-01 20:36 | Inpatient (IN) | payer MEDICARE, MEDICAID ==
[~2016-11-01] VITALS: Ht 167.6 cm; Wt 80.4 kg
[2016-11-01 01:00] VITALS: BP 129/75
[~2016-11-01 20:36] MED LIST changes: -ACET-654 PO; -ASPI81TAEC PO; -COUM1TAB19 PO; -CYAN1000VL IM; -CYMB1CAP4 PO; -DITR5TAB PO; -DULO1CAP PO; -IMDUR PO; -IPRASOL4 NEB; -MULT1TAB10 PO; -TOPI50TA4 PO
[2016-11-01] MEDS: NORTRIPTYLINE 25 MG CAP PO SCH (21:00)
[2016-11-01] MEDS ORDERED: NITROGLYCERIN 2% OINT 1 GM *U/D* PKT TOP ONE (21:30)
[2016-11-01] MEDS ORDERED: FUROSEMIDE 100 MG/10 ML VIAL (J1940) IV ONE (21:30)
[2016-11-01 22:11] LABS: BASO % 0.2 % (0.0-1.0); EOS # 0.1 K/mm3 (0.0-0.50); EOS % 1.3 % (0.0-3.0); LARGE UNSTAINED CELL % 0.5 % (0.0-4.0); LYMPH # 0.8 K/mm3 (1.5-4.5); LYMPH % 10.4 % (24.0-44.0); MEAN CORPUSCULAR HEMOGLOBIN 33.7 pg (27.0-33.0); MEAN CORPUSCULAR HGB CONC 30.5 g/dl (32.0-36.5); MEAN CORPUSCULAR VOLUME 110.3 fl (80.0-96.0); MONO # 0.2 K/mm3 (0.0-0.8); MONO % 3.1 % (0.0-5.0); NEUTROPHILS # 6.6 K/mm3 (1.8-7.7); NEUTROPHILS % 84.5 % (36.0-66.0); PLATELET COUNT, AUTOMATED 203 k/mm3 (150-450); RED CELL DISTRIBUTION WIDTH 15.7 % (11.5-14.5); WHITE BLOOD COUNT 7.9 K/mm3 (4.0-10.0)
[2016-11-01 22:12] LABS: ABG HCO3 44.8 MEQ/L (22.0-26.0); ABG PARTIAL PRESSURE O2 73.7 mmHg (75.0-100.0); ABG TOTAL CO2 46.9 MEQ/L (22.0-29.0); ABG pH (ARTERIAL) 7.426 UNITS (7.350-7.450)
[2016-11-01 22:12] LABS: ADD MORPHOLOGY? YES
[2016-11-01 22:13] LABS: ABG PARTIAL PRESSURE CO2 69.7 mmHg (35.0-45.0)
[2016-11-01 22:32] LABS: ANION GAP 2 MEQ/L (8-16); BLOOD UREA NITROGEN 21 MG/DL (7-18); CALCIUM LEVEL 8.5 MG/DL (8.5-10.1); CARBON DIOXIDE LEVEL 42 MEQ/L (21-32); CHLORIDE LEVEL 91 MEQ/L (98-107); CREATININE FOR GFR 1.07 MG/DL (0.55-1.02); GLOMERULAR FILTRATION RATE 56.1 (>51); GLUCOSE, FASTING 143 MG/DL (70-105); SODIUM LEVEL 135 MEQ/L (136-145)
[2016-11-01 22:40] LABS: ANISOCYTOSIS 1+; HYPOCHROMASIA 1+; OVALOCYTES 1+; POIKILOCYTOSIS 1+; POLYCHROMASIA 1+
[2016-11-01 23:30] VITALS: BP 129/75
[2016-11-01] MEDS ORDERED: TOPI50TA4 PO (23:31)
[2016-11-01] MEDS ORDERED: DULO1CAP PO (23:31)
[2016-11-01] MEDS ORDERED: ASPI81TAEC PO (23:31)
[2016-11-01] MEDS ORDERED: NORT25CA2 PO (23:31)
[2016-11-02] MEDS ORDERED: FUROSEMIDE 40 MG/4 ML VIAL (J1940) IV SCH
[2016-11-02 01:00] VITALS: BP 154/78
[2016-11-02] MEDS ORDERED: metOLazone 5 MG TAB PO ONE (01:30)
[2016-11-02] MEDS ORDERED: NITROGLYCERIN 0.4 MG SUBL TABLET SL PRN (01:30)
[2016-11-02] MEDS ORDERED: POLYVINYL ALCOHOL OPHTH SOLN 15 ML(LIQUITEARS) OU PRN (01:30)
[2016-11-02 01:49] LABS: INR 1.9
--- NOTE | 2016-11-02 02:21 | REPUSA ---
CLINICAL HISTORY: Left arm weakness. TECHNIQUE: Multiple axial CT images were obtained through the brain without IV contrast material. COMMENTS: Comparison is made to the prior exam performed on 06/03/2016. Unchanged right cerebellar chronic encephalomalacia. There is normal configuration of sella turcica. There are no intra or extra-axial collections. There is no mass effect or midline shift. There is no evidence of hematoma formation. No hydrocephalus is p resent. The ventricles are symmetrical. No abnormal calcifications are present. There is diffuse age-appropriate cerebellar and cerebral atrophy with proportionally dilated ventricl es and cortical sulci. There are bilateral periventricular and subcortical white matter hypolucencies compatible with mild c hronic microvascular disease. Otherwise, no significant focal abnormalities are seen either in the posterior fossa or supratentoria l compartment. IMPRESSION: 1. Age-appropriate cerebellar and cerebral atrophy. 2. Mild chronic microvascular disease. Unchanged right cerebellar chronic encephalomalacia. 3. No evidence of acute intracranial pathology. Thank you for your kind referral of this patient.
[2016-11-02 04:00] VITALS: BP 133/79
[2016-11-02 05:23] LABS: BASO % 0.3 % (0.0-1.0); EOS # 0.1 K/mm3 (0.0-0.50); EOS % 0.8 % (0.0-3.0); LARGE UNSTAINED CELL # 0.1 K/mm3 (0.0-0.4); LARGE UNSTAINED CELL % 0.8 % (0.0-4.0); LYMPH # 1.2 K/mm3 (1.5-4.5); LYMPH % 14.2 % (24.0-44.0); MEAN CORPUSCULAR HEMOGLOBIN 34.4 pg (27.0-33.0); MEAN CORPUSCULAR HGB CONC 30.9 g/dl (32.0-36.5); MEAN CORPUSCULAR VOLUME 111.5 fl (80.0-96.0); MONO # 0.4 K/mm3 (0.0-0.8); MONO % 4.4 % (0.0-5.0); NEUTROPHILS # 6.6 K/mm3 (1.8-7.7); NEUTROPHILS % 79.4 % (36.0-66.0); PLATELET COUNT, AUTOMATED 227 k/mm3 (150-450); RED CELL DISTRIBUTION WIDTH 15.7 % (11.5-14.5); WHITE BLOOD COUNT 8.4 K/mm3 (4.0-10.0)
[2016-11-02 05:35] LABS: INR 1.94
[2016-11-02 05:48] LABS: ALBUMIN 3.5 GM/DL (3.2-5.2); ALBUMIN/GLOBULIN RATIO 0.97 (1.00-1.93); ALKALINE PHOSPHATASE 57 U/L (45-117); ALT/SGPT 24 U/L (12-78); AMYLASE 28 U/L (25-115); AST/SGOT 17 U/L (15-37); BILIRUBIN,DIRECT 0.4 MG/DL (0.0-0.2); BILIRUBIN,TOTAL 1.1 MG/DL (0.2-1.0); BLOOD UREA NITROGEN 20 MG/DL (7-18); CHLORIDE LEVEL 87 MEQ/L (98-107); CREATININE FOR GFR 1.01 MG/DL (0.55-1.02); GLOMERULAR FILTRATION RATE 59.9 (>51); GLUCOSE, FASTING 110 MG/DL (70-105); POTASSIUM SERUM 3.3 MEQ/L (3.5-5.1); SODIUM LEVEL 138 MEQ/L (136-145); TOTAL PROTEIN 7.1 GM/DL (6.4-8.2)
[2016-11-02 06:42] LABS: ANION GAP 5 MEQ/L (8-16); CARBON DIOXIDE LEVEL 46 MEQ/L (21-32)
[2016-11-02] MEDS ORDERED: POTASSIUM CHLORIDE 10 MEQ SR TABLET PO ONE (07:00)
--- NOTE | 2016-11-02 07:42 | REP ---
Clinical: Dyspnea. Comparison: 08/14/2016. Findings: Stable cardiomegaly is appreciated. Subtle perihilar and basilar atelectasis cannot be excluded along with possible small layering left effusion. No pneumothorax. Skeletal structures intact. Impression: Cardiomegaly and possible perihilar and basilar atelectasis as well as small left pleural effusion cannot be excluded. Signed by Nathaniel Vegas MD 11/02/2016 07:34 A
[2016-11-02 08:00] VITALS: BP 146/79
[2016-11-02] MEDS: TOPIRAMATE (TopAMAX) 25 MG TAB PO SCH ×2 (08:08→21:33)
[2016-11-02] MEDS: FENOFIBRATE 145 MG TAB (TRICOR) PO SCH (08:08)
[2016-11-02] MEDS: FERROUS SULFATE 325MG TAB PO SCH ×2 (08:08→21:31)
[2016-11-02] MEDS: ATORVASTATIN 20 MG TAB PO SCH (08:08)
[2016-11-02] MEDS: valACYclovir HCL 500 MG TAB PO SCH ×3 (08:08→21:33)
[2016-11-02] MEDS: SPIRONOLACTONE 25 MG TAB PO SCH (08:09)
[2016-11-02] MEDS: oxyBUTYnin 5 MG TAB PO SCH ×2 (08:09→21:31)
[2016-11-02] MEDS: OMEPRAZOLE 20 MG CAP PO SCH ×2 (08:09→21:32)
[2016-11-02] MEDS: DULoxetine 20 MG CAP (CYMBALTA) PO SCH ×2 (08:09→21:31)
[2016-11-02] MEDS: ASPIRIN 81 MG ENTERIC TAB PO SCH (08:09)
[2016-11-02] MEDS: ISOSORBIDE MON. (IMDUR) 60 MG XR TAB PO SCH (08:10)
--- NOTE | 2016-11-02 09:09 | HPE ---
DATE OF ADMISSION: 11/01/2016 PRIMARY CARE PROVIDER: Dr. Nando Lal CHIEF COMPLAINT: Right arm weakness, shortness of breath. HISTORY OF PRESENT ILLNESS: This is a 60-year-old female with a history of massive right cerebellar CVA in 1994, large acute myocardial infarction in 1994 with a fixed apical defect with left ventricular defect with left ventricular aneurysm. Ejection fraction of 48% on life long anticoagulation and noncompliance with warfarin. Systolic dysfunction, ejection fraction of 47%, 35 to 40% on echo in December 2012. Mural thrombus, akinetic and hypokinetic left ventricle, hypertension, hypercholesterolemia, depression, degenerative disc disease of the lumbar spine on MRI in December 2010, seborrheic dermatitis, left leg embolism and thrombus, status post left lower extremity thrombectomy at [facility], diastolic congestive heart failure (CHF), B12 deficiency, failed on oral therapy , noncompliant with oral treatment, right eye vision loss in 2015, visual and auditory hallucinations from Topamax, migraine headaches, angiogram showed occluded vertebral artery and chronic cholecystitis, who presents to the emergency room with complaints of right arm weakness, which started last evening at 6:00 p.m. from the shoulder to the hand. She is right hand dominant and was concerned due to prior history of CVA about recurrent stroke. The patient also has been having worsening shortness of breath for the past two days. No wheezing. No chest pain, pressure, tightness, fever, chills, or cough. She states weight loss over the past 2 weeks, usually weighs about 190 pounds, currently 167. She denies any lower extremity edema and usually has three pillow orthopnea. No dysuria, urgency, frequency, fever, or chills. No lightheadedness, dizziness, palpitations, nausea, vomiting, diaphoresis. Denies any lower extremity weakness, usually chronically in a wheelchair. Respiratory distress. The patient continued her 4 liters of oxygen at home for her respiratory distress. No nebulizers were used. She presented to the emergency room and was found to be hypoxic with pulse oximetry of 80 to 87% on 4 liters nasal cannula and placed on facemask, FiO2 of 40%. Hospitalist service was called for admission when she was found to have pulmonary edema on chest x-ray, BNP only slightly elevated at 314. INR is pending. PAST MEDICAL HISTORY: 1. Massive right cerebellar CVA in 1994. 2. Large acute myocardial infarction in 1994. 3. Fixed apical defect with left ventricular aneurysm, ejection fraction of 48% , diastolic dysfunction, mural thrombus, akinetic and hypokinetic left ventricle. 4. Depression. 5. Hypertension. 6. Hypercholesterolemia. 7. Incontinence. 8. Degenerative disc disease of the lumbar spine. 9. Seborrheic dermatitis. 10. Left leg embolism and thrombus, status post left lower extremity thrombectomy at [facility]. 11. B12 deficiency, on injections, failed oral therapy. 12. Right eye vision loss in 2016. 13. Visual and auditory hallucinations from Topamax. 14. Migraine headaches. MRA showed occluded vertebral artery. 15. Chronic cholecystitis. 16. Allergies to MORPHINE causing vomiting and TOPAMAX causing hallucinations. Admitted to inpatient mental health unit at [facility]. 17. Osteoporosis. 18. Chronic hypoxia. 19. Obstructive sleep apnea on chronic continuous positive airway pressure (CPAP), 4 liters oxygen dependent at home. PAST SURGICAL HISTORY: 1. Skin graft. 2. Left knee surgery. 3. Left leg arterial surgery. 4. Laryngoplasty. SOCIAL HISTORY: Quit smoking 25 years ago. No alcohol use. Lives alone, usually in a wheelchair. FAMILY HISTORY: Noncontributory. HOME MEDICATIONS: - Paxil 20 mg daily, stopped, this was noted on 10/15/2016 - duloxetine 20 mg daily - atenolol 50 mg at night - calcium and vitamin D one tablet daily - furosemide 20 mg at night - furosemide 40 mg in the morning - isosorbide 60 mg daily - vitamin D 50,000 units weekly - Zylet one drop OD twice a day ALLERGIES: MORPHINE. REVIEW OF SYSTEMS: 12-point system obtained, all of which negative except for those mentioned in the history of present illness. FAMILY HISTORY: Noncontributory. PHYSICAL EXAMINATION: VITAL SIGNS: Temperature 97.5, pulse 94, respiratory rate 20, blood pressure 122/94, 80% pulse oximetry, FiO2 of 40% by mask. GENERAL: The patient is awake, alert, oriented times three. Answering questions appropriately. Able to speak in full sentences. Right eye is injected. No pharyngeal erythema, tonsillar exudate. Positive jugular venous distention (JVD). Dry mucous membranes. No cervical lymphadenopathy or thyromegaly. LUNGS: Diminished with bilateral rales at the bases. HEART: S1, S2. Sinus rhythm. ABDOMEN: Obese, soft, nontender, nondistended. EXTREMITIES: No cyanosis, clubbing or pitting edema. SKIN: [place], warm to touch. EKG is pending. LABORATORY DATA: White count 7.9, hemoglobin 12, hematocrit 40, platelet count 203, sodium 135, potassium 4.0, chloride 91, bicarbonate 42, BUN 21, creatinine 1.07, glucose 143. Cardiac markers pending. BNP 314. Chest x-ray: No official report. CT of the head ordered and still pending. ASSESSMENT AND PLAN: This is a 60-year-old female with medical noncompliance with her Coumadin, left ventricular aneurysm on life long anticoagulation, history of massive CVA, cerebellar CVA, large acute myocardial infarction with aneurysm, ejection fraction 48%, diastolic and systolic dysfunction, mural thrombus, akinetic and hypokinetic left ventricle, depression, hypertension, hypercholesterolemia, urine incontinence, degenerative disc disease, seborrheic dermatitis, left lower extremity embolism and thrombus, status post left lower extremity thrombectomy, B12 deficiency, right eye vision loss in 2015, visual and auditory hallucinations from Topamax, migraine headaches with occluded vertebral artery June 2016 MRA, chronic cholecystitis, who presented to the emergency room with complaints of right arm weakness at around 6:00 p.m. 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 The patient was sitting at home. She is right hand dominant with worsening shortness of breath for the past 2 days, weight loss for the past 2 weeks. No lower extremity edema. Difficulty lying down due to shortness of breath without chest pain, pressure or tightness, lightheadedness, dizziness, diaphoresis. The patient was evaluated in the emergency room and was found to have congestive heart failure (CHF) exacerbation. Hospitalist service was called for admission. Workup for right arm weakness is still pending. The patient will be admitted as an inpatient to [facility] group, Dr. Nando Lal. She will be assigned to [facility] on 11/02/2016 at 7:00 a.m. CURRENT ISSUES: 1. Right arm weakness, the patient has a history of left ventricle mural thrombus on chronic Coumadin, but has been noncompliant. Current INR is still pending. We will obtain a CT of the head without contrast to rule out CVA. If the patient has acute CVA, may need to bridge therapy with IV heparin and Coumadin in case patient is subtherapeutic. Start neuro checks every 4 hours. Monitory for new distress and potentially a neuro evaluation if positive CVA on CT of the head. Telemetry monitoring in progressive care unit (PCU). Left hand for testing. 2. Congestive heart failure (CHF), systolic and diastolic dysfunction, ejection fraction of 48%. Currently, on fluid restriction. Strict input and output and daily weights. IV Lasix every 8 hours. Resume the patient's spironolactone. Hold the patient's beta blockade and blood pressure medications to allow for diuresis. Resume once the patient is euvolemic and pressure is at least above 100. 3. Hypertension. Currently stable. Holding isosorbide due to blood pressures in the 100s. Atenolol for now due to pressures of 106 for better Lasix diuresis. Resume with holding parameters in the morning. Continue with spironolactone and IV Lasix for now. Continue with Lipitor due to prior history of acute myocardial infarction. 4. Large anterior wall myocardial infarction. Continue on aspirin, atenolol, Lipitor with holding parameters for isosorbide and atenolol. 5. Acute kidney injury. Monitor the patient's creatinine. Avoid nephrotoxins. Renally dose all medications. Repeat metabolic panel at 6:00 a.m. 6. Abnormal EKG. Repeat EKG in the morning. Due to complaint of shortness of breath, rule out acute coronary syndrome. 12-leak EKG now. Continue on aspirin , Coumadin, atorvastatin and atenolol with holding parameters. 7. Right eye conjunctivitis, most likely non bacterial. The patient denies any pruritus. Therefore, artificial tears as needed. 8. History of depression. No suicidal thoughts at this time. 9. History of obstructive sleep apnea, noncompliant with continuous positive airway pressure (CPAP). Continue with home oxygen. 10. Chronic hypoxic respiratory failure, on 4 liters home oxygen. Titrate to oxygen saturations of 90%. 11. Deep vein thrombosis (DVT) prophylaxis. Currently on Coumadin, titrate in case it is subtherapeutic. The patient will be signed out to [facility] at 7:00 a.m. on 11/02/2016. HARRISON
--- NOTE | 2016-11-02 11:32 | IPNPDOC ---
Subjective Date Seen The patient was seen on 11/02/16. Subjective Chief Complaint/HPI The patient is a 60-year-old female admitted with a reason for visit of Chf W/ Cardiomyopathy. Events since last encounter dyspnea improved, s cough resolved RUE weakness 11/01 PM General: Denies: Chills, Night Sweats Constitutional: Denies: Chills, Fever Eyes: Denies: Pain ENT: Denies: Head Aches Pulmonary: Reports: Dyspnea (mild) Cardiovascular: Denies: Chest Pain, Palpitations Gastrointestinal: Denies: Nausea, Vomiting Genitourinary: Denies: Dysuria Neurological: Denies: Weakness, Numbness, Change in speech, Confusion Objective Physical Examination General Exam: Positive: Alert, No Acute Distress Neck Exam: Positive: JVD (5 cm) Chest Exam: Positive: Rales (bibasilar) Heart Exam: Positive: Rate Normal Telemetry: Positive: No significant arrhythmia Abdomen Exam: Positive: Normal bowel sounds Extremity Exam: Negative: Edema Skin Exam: Positive: Nl turgor and temperature Assessment /Plan Problems (1) TIA (transient ischemic attack) Problem Text: continues HD 81/HI statin L hemispheric 11/02 resolved RUE weakness present per patient from 10/31-11/01, check MRA carotids 11/02/16 CT head NAD 05/2016 stable MRI/MRA brain (2) Left ventricular mural thrombus Status: Chronic Problem Text: on chronic VKA (HD 2 QD), but VERY non-compliant, aspirin 81, atorva 80 11/02 1.9-gave 4 total 11/01 1.9 10/23 1.8 Fixed apical defect with left ventricular aneurysm, ejection fraction of 48%, diastolic dysfunction, mural thrombus, akinetic and hypokinetic left ventricle. (3) Systolic and diastolic CHF, acute on chronic Status: Acute Response to Treatment: Improving Problem Text: continue HD jacobo 12.5 (HD fur ), Imdur 60, atenolol 50 11/02 -1100 balance, K 3.3-replaced, cr 1.0-baseline, + net - Lasix for -1L/QD (4) CAD (coronary artery disease) Status: Chronic Response to Treatment: Stable Problem Text: No acute symptoms 11/01 CIP/T-I - x2 (5) KEYONNA (obstructive sleep apnea) Status: Chronic Problem Text: continue HD CPAP 4 Plan/VTE VTE Prophylaxis Ordered?: Yes VS, I&O, 24H, [facility] Vital Signs/I&O Vital Signs Date Time Temp Pulse Resp B/P (MAP) Pulse Ox O2 Delivery O2 Flow Rate FiO2 11/02/16 08:10 146/79 11/02/16 08:00 96.0 87 22 96 Venturi Mask 15.0 40 I&O- Last 24 Hours up to 6 AM 11/02/16 06:00 Intake Total 0 ml Output Total 625 ml Balance -625 ml Laboratory Data 24H LABS Laboratory Tests 2 11/01/16 21:31: Prothrombin Time 21.9H, Prothromb Time International Ratio 1.90 11/01/16 21:58: White Blood Count 7.9, Red Blood Count 3.62L, Hemoglobin 12.2, Hematocrit 40.0, Mean Corpuscular Volume 110.3H, Mean Corpuscular Hemoglobin 33.7H, Mean Corpuscular Hemoglobin Concent 30.5L, Red Cell Distribution Width 15.7H, Platelet Count 203, Neutrophils (%) (Auto) 84.5H, Lymphocytes (%) (Auto) 10.4L, Monocytes (%) (Auto) 3.1, Eosinophils (%) (Auto) 1.3, Basophils (%) (Auto) 0.2, Neutrophils # (Auto) 6.6, Lymphocytes # (Auto) 0.8L, Monocytes # (Auto) 0.2, Eosinophils # (Auto) 0.1, Basophils # (Auto) 0.0, Large Unclassified Cells % 0.5 , Large Unclassified Cells # 0.0, Platelet Estimate NORMAL, Polychromasia 1+, Hypochromasia 1+, Poikilocytosis 1+, Anisocytosis 1+, Macrocytosis 3+, Ovalocytes 1+, Anion Gap 2L, Glomerular Filtration Rate 56.1, Blood Urea Nitrogen 21H, Creatinine 1.07H, Sodium Level 135L, Potassium Level 4.0, Chloride Level 91L, Carbon Dioxide Level 42H, Calcium Level 8.5, Total Creatine Kinase 26, Creatine Kinase MB 1.0, Creatine Kinase MB Relative Index 3.84, Troponin I < 0.02, B-Type Natriuretic Peptide 314H 11/01/16 22:06: Blood Gas Bicarbonate Standard 41.0H, Arterial Blood pH 7.426, Arterial Blood Partial Pressure CO2 69.7*H, Arterial Blood Partial Pressure O2 73.7L, Arterial Blood Total CO2 46.9H, Arterial Blood HCO3 44.8H, Arterial Blood Base Excess 17.0H, Arterial Blood Oxygen Saturation 95.1 11/02/16 04:56: Prothrombin Time 22.2H, Prothromb Time International Ratio 1.94, White Blood Count 8.4, Red Blood Count 3.83L, Hemoglobin 13.2, Hematocrit 42.6, Mean Corpuscular Volume 111.5H, Mean Corpuscular Hemoglobin 34.4H, Mean Corpuscular Hemoglobin Concent 30.9L, Red Cell Distribution Width 15.7H, Platelet Count 227 , Neutrophils (%) (Auto) 79.4H, Lymphocytes (%) (Auto) 14.2L, Monocytes (%) ( Auto) 4.4, Eosinophils (%) (Auto) 0.8, Basophils (%) (Auto) 0.3, Neutrophils # ( Auto) 6.6, Lymphocytes # (Auto) 1.2L, Monocytes # (Auto) 0.4, Eosinophils # ( Auto) 0.1, Basophils # (Auto) 0.0, Large Unclassified Cells % 0.8, Large Unclassified Cells # 0.1, Anion Gap 5L, Glomerular Filtration Rate 59.9, Calcium Level 9.0, Total Creatine Kinase 30, Creatine Kinase MB 1.0, Creatine Kinase MB Relative Index 3.33, Troponin I < 0.02, Aspartate Amino Transf (AST/ SGOT) 17, Alanine Aminotransferase (ALT/SGPT) 24, Alkaline Phosphatase 57, Total Bilirubin 1.1H, Direct Bilirubin 0.4H, Total Protein 7.1, Albumin 3.5, Albumin/Globulin Ratio 0.97L, Amylase Level 28, Lipase 56L CBC/BMP Laboratory Tests 11/01/16 21:58 Red Blood Count 3.62 L, Mean Corpuscular Volume 110.3 H, Mean Corpuscular Hemoglobin 33.7 H, Mean Corpuscular Hemoglobin Concent 30.5 L, Red Cell Distribution Width 15.7 H, Neutrophils (%) (Auto) 84.5 H, Lymphocytes (%) (Auto ) 10.4 L, Monocytes (%) (Auto) 3.1, Eosinophils (%) (Auto) 1.3, Basophils (%) ( Auto) 0.2, Neutrophils # (Auto) 6.6, Lymphocytes # (Auto) 0.8 L, Monocytes # ( Auto) 0.2, Eosinophils # (Auto) 0.1, Basophils # (Auto) 0.0, Calcium Level 8.5, Total Creatine Kinase 26 11/02/16 04:56 Red Blood Count 3.83 L, Mean Corpuscular Volume 111.5 H, Mean Corpuscular Hemoglobin 34.4 H, Mean Corpuscular Hemoglobin Concent 30.9 L, Red Cell Distribution Width 15.7 H, Neutrophils (%) (Auto) 79.4 H, Lymphocytes (%) (Auto ) 14.2 L, Monocytes (%) (Auto) 4.4, Eosinophils (%) (Auto) 0.8, Basophils (%) ( Auto) 0.3, Neutrophils # (Auto) 6.6, Lymphocytes # (Auto) 1.2 L, Monocytes # ( Auto) 0.4, Eosinophils # (Auto) 0.1, Basophils # (Auto) 0.0 Dimitris Samano M.D. November 02, 2016 11:32
[2016-11-02 12:00] VITALS: BP 140/80
[2016-11-02] MEDS: FUROSEMIDE 40 MG/4 ML VIAL (J1940) IV SCH (12:00)
[2016-11-02 13:02] LABS: INR 1.88
--- NOTE | 2016-11-02 15:14 | ECGEPIP ---
Stationary ECG Study Test Date: 2016-11-02 Pat Name: PRASAD TERRY Department: Room: [place] [address] Gender: F Coordinator Of Online Programs: SERGEI : 1955 Requested By: SHAW Rosario Order Number: [id number] Reading MD: Taylor Hewitt Measurements Intervals [place] Rate: 93 P: 52 CA: 162 QRS: -16 QRSD: 106 T: 73 QT: 354 QTc: 440 Interpretive Statements SINUS RHYTHM WITH OCCASIONAL SUPRAVENTRICULAR PREMATURE COMPLEXES ILBBB POSSIBLE ANTERIOR MYOCARDIAL INFARCTION, OF INDETERMINATE AGE (PRWP) INFERIOR MYOCARDIAL INFARCTION, OF INDETERMINATE AGE PAC NEW C/W 08/14/16 Electronically Signed On 11-02-2016 15:14:39 EDT by Taylor Hewitt
[2016-11-02 16:00] VITALS: BP 140/74
[2016-11-02] MEDS ORDERED: WARFARIN SOD 4 MG TAB PO ONE (17:00)
[2016-11-02] MEDS ORDERED: WARFARIN SOD 2 MG TAB PO SCH (17:00)
[2016-11-02 20:00] VITALS: BP 125/65
[2016-11-02] MEDS: NORTRIPTYLINE 25 MG CAP PO SCH (21:31)
[2016-11-02] MEDS: ATENOLOL 50 MG TAB PO SCH (21:32)
[2016-11-03] VITALS: BP 102/58
[2016-11-03] MEDS: FUROSEMIDE 40 MG/4 ML VIAL (J1940) IV SCH (00:07)
[2016-11-03 04:00] VITALS: BP 106/65
[2016-11-03 06:26] LABS: BASO % 0.3 % (0.0-1.0); EOS # 0.1 K/mm3 (0.0-0.50); EOS % 1.5 % (0.0-3.0); LARGE UNSTAINED CELL # 0.1 K/mm3 (0.0-0.4); LYMPH # 1.1 K/mm3 (1.5-4.5); LYMPH % 16.8 % (24.0-44.0); MEAN CORPUSCULAR HEMOGLOBIN 34.7 pg (27.0-33.0); MEAN CORPUSCULAR HGB CONC 31.7 g/dl (32.0-36.5); MEAN CORPUSCULAR VOLUME 109.5 fl (80.0-96.0); MONO # 0.4 K/mm3 (0.0-0.8); MONO % 6.2 % (0.0-5.0); NEUTROPHILS # 4.4 K/mm3 (1.8-7.7); NEUTROPHILS % 74.2 % (36.0-66.0); PLATELET COUNT, AUTOMATED 239 k/mm3 (150-450); RED CELL DISTRIBUTION WIDTH 16.1 % (11.5-14.5)
[2016-11-03 06:28] LABS: INR 2.26
[2016-11-03 06:32] LABS: ADD MORPHOLOGY? YES
[2016-11-03 06:49] LABS: ALBUMIN 3.3 GM/DL (3.2-5.2); ALBUMIN/GLOBULIN RATIO 0.72 (1.00-1.93); BILIRUBIN,TOTAL 0.7 MG/DL (0.2-1.0); CALCIUM LEVEL 9.1 MG/DL (8.5-10.1); CREATININE FOR GFR 1.12 MG/DL (0.55-1.02); GLOMERULAR FILTRATION RATE 53.2 (>51); POTASSIUM SERUM 3.4 MEQ/L (3.5-5.1); TOTAL PROTEIN 7.9 GM/DL (6.4-8.2)
[2016-11-03 07:05] LABS: ANISOCYTOSIS 1+; POLYCHROMASIA 1+
[2016-11-03 08:00] VITALS: BP 113/49
[2016-11-03] MEDS: ISOSORBIDE MON. (IMDUR) 60 MG XR TAB PO SCH (09:00)
[2016-11-03] MEDS: SPIRONOLACTONE 25 MG TAB PO SCH (09:42)
[2016-11-03] MEDS: valACYclovir HCL 500 MG TAB PO SCH ×3 (09:42→22:28)
[2016-11-03] MEDS: ASPIRIN 81 MG ENTERIC TAB PO SCH (09:42)
[2016-11-03] MEDS: FENOFIBRATE 145 MG TAB (TRICOR) PO SCH (09:42)
[2016-11-03] MEDS: oxyBUTYnin 5 MG TAB PO SCH ×2 (09:42→22:26)
[2016-11-03] MEDS: OMEPRAZOLE 20 MG CAP PO SCH ×2 (09:43→22:26)
[2016-11-03] MEDS: FERROUS SULFATE 325MG TAB PO SCH ×2 (09:43→22:26)
[2016-11-03] MEDS: TOPIRAMATE (TopAMAX) 25 MG TAB PO SCH ×2 (09:43→22:28)
[2016-11-03] MEDS: DULoxetine 20 MG CAP (CYMBALTA) PO SCH ×2 (09:43→22:25)
[2016-11-03] MEDS: ATORVASTATIN 20 MG TAB PO SCH (09:43)
--- NOTE | 2016-11-03 11:25 | IPNPDOC ---
Subjective Date Seen The patient was seen on 11/03/16. Subjective Chief Complaint/HPI The patient is a 60-year-old female admitted with a reason for visit of Chf W/ Cardiomyopathy. Objective Physical Examination General Exam: Positive: Alert, No Acute Distress Neck Exam: Positive: JVD (5 cm) Chest Exam: Positive: Rales (bibasilar) Heart Exam: Positive: Rate Normal Telemetry: Positive: No significant arrhythmia Abdomen Exam: Positive: Normal bowel sounds Extremity Exam: Negative: Edema Skin Exam: Positive: Nl turgor and temperature Assessment /Plan Problems (1) TIA (transient ischemic attack) Problem Text: continues HD 81/HI statin L hemispheric 11/03 no recurrent sx 11/02 resolved RUE weakness present per patient from 10/31-11/01, check MRA carotids 11/02/16 CT head NAD 05/2016 stable MRI/MRA brain (2) Left ventricular mural thrombus Status: Chronic Problem Text: on chronic VKA (HD 2 QD), but VERY non-compliant, aspirin 81, atorva 80 11/03-2.3, therefore, back to 2 QD 11/02 1.9-gave 4 total 11/01 1.9 10/23 1.8 Fixed apical defect with left ventricular aneurysm, ejection fraction of 48%, diastolic dysfunction, mural thrombus, akinetic and hypokinetic left ventricle. (3) Systolic and diastolic CHF, acute on chronic Status: Acute Response to Treatment: Improving Problem Text: continue HD jacobo 12.5 (HD fur ), Imdur 60, atenolol 50 11/03 -1500 total balance, 3.4, Mg 2.0-replaced K; back to baseline wt; therefore , resum HD fur 11/02 -1100 balance, K 3.3-replaced, cr 1.0-baseline, + net - Lasix for -1L/QD (4) CAD (coronary artery disease) Status: Chronic Response to Treatment: Stable Problem Text: No acute symptoms 11/01 CIP/T-I - x2 (5) KEYONNA (obstructive sleep apnea) Status: Chronic Problem Text: continue HD CPAP 4 Plan/VTE VTE Prophylaxis Ordered?: Yes Disposition 11/02 safe per PT, d/c 11/03 vs 11/04 p MRA VS, I&O, 24H, Fishbone Vital Signs/I&O Vital Signs Date Time Temp Pulse Resp B/P (MAP) Pulse Ox O2 Delivery O2 Flow Rate FiO2 11/03/16 09:00 112/55 11/03/16 08:00 98.2 67 19 95 Nasal Cannula 4.0 11/02/16 12:00 40 I&O- Last 24 Hours up to 6 AM 11/03/16 05:59 Intake Total 1200 ml Output Total 2375 ml Balance -1175 ml Laboratory Data 24H LABS Laboratory Tests 2 11/02/16 11:53: Total Creatine Kinase 24L, Creatine Kinase MB 1.0, Creatine Kinase MB Relative Index 4.16H, Troponin I < 0.02 11/02/16 12:23: Prothrombin Time 21.7H, Prothromb Time International Ratio 1.88 11/02/16 17:53: Total Creatine Kinase 27, Creatine Kinase MB 1.0, Creatine Kinase MB Relative Index 3.70, Troponin I < 0.02 11/03/16 05:24: Prothrombin Time 25.0H, Prothromb Time International Ratio 2.26, White Blood Count 6.0, Red Blood Count 3.69L, Hemoglobin 12.8, Hematocrit 40.5, Mean Corpuscular Volume 109.5H, Mean Corpuscular Hemoglobin 34.7H, Mean Corpuscular Hemoglobin Concent 31.7L, Red Cell Distribution Width 16.1H, Platelet Count 239 , Neutrophils (%) (Auto) 74.2H, Lymphocytes (%) (Auto) 16.8L, Monocytes (%) ( Auto) 6.2H, Eosinophils (%) (Auto) 1.5, Basophils (%) (Auto) 0.3, Neutrophils # (Auto) 4.4, Lymphocytes # (Auto) 1.1L, Monocytes # (Auto) 0.4, Eosinophils # ( Auto) 0.1, Basophils # (Auto) 0.0, Large Unclassified Cells % 1.0, Large Unclassified Cells # 0.1, Platelet Estimate NORMAL, Polychromasia 1+, Anisocytosis 1+, Macrocytosis 1+, Anion Gap 7L, Glomerular Filtration Rate 53.2 , Blood Urea Nitrogen 20H, Creatinine 1.12H, Sodium Level 136, Potassium Level 3.4L, Chloride Level 84L, Carbon Dioxide Level 45H, Calcium Level 9.1, Aspartate Amino Transf (AST/SGOT) 27, Alanine Aminotransferase (ALT/SGPT) 26, Alkaline Phosphatase 56, Total Bilirubin 0.7, Total Protein 7.9, Albumin 3.3, Magnesium Level 2.0, Albumin/Globulin Ratio 0.72L CBC/BMP Laboratory Tests 11/03/16 05:24 Red Blood Count 3.69 L, Mean Corpuscular Volume 109.5 H, Mean Corpuscular Hemoglobin 34.7 H, Mean Corpuscular Hemoglobin Concent 31.7 L, Red Cell Distribution Width 16.1 H, Neutrophils (%) (Auto) 74.2 H, Lymphocytes (%) (Auto ) 16.8 L, Monocytes (%) (Auto) 6.2 H, Eosinophils (%) (Auto) 1.5, Basophils (%) (Auto) 0.3, Neutrophils # (Auto) 4.4, Lymphocytes # (Auto) 1.1 L, Monocytes # ( Auto) 0.4, Eosinophils # (Auto) 0.1, Basophils # (Auto) 0.0, Calcium Level 9.1, Aspartate Amino Transf (AST/SGOT) 27, Alanine Aminotransferase (ALT/SGPT) 26, Alkaline Phosphatase 56, Total Bilirubin 0.7, Total Protein 7.9, Albumin 3.3 Dimitris Samano M.D. November 03, 2016 11:25
[2016-11-03] MEDS ORDERED: POTASSIUM CHLORIDE 10 MEQ SR TABLET PO ONE (11:45)
[2016-11-03 12:00] VITALS: BP 116/81
[2016-11-03] MEDS: FUROSEMIDE 40 MG TAB PO SCH (12:14)
[2016-11-03 16:00] VITALS: BP 142/74
[2016-11-03] MEDS ORDERED: FUROSEMIDE 20 MG TAB PO SCH (17:00)
[2016-11-03 20:00] VITALS: BP 124/65
[2016-11-03] MEDS: NORTRIPTYLINE 25 MG CAP PO SCH (22:26)
[2016-11-03] MEDS: ATENOLOL 50 MG TAB PO SCH (22:27)
[2016-11-04] VITALS: BP 115/67
[2016-11-04 04:00] VITALS: BP 94/63
[2016-11-04 05:11] LABS: BASO % 0.4 % (0.0-1.0); EOS # 0.1 K/mm3 (0.0-0.50); EOS % 1.7 % (0.0-3.0); LARGE UNSTAINED CELL # 0.1 K/mm3 (0.0-0.4); LARGE UNSTAINED CELL % 0.8 % (0.0-4.0); LYMPH # 0.9 K/mm3 (1.5-4.5); LYMPH % 11.8 % (24.0-44.0); MEAN CORPUSCULAR HEMOGLOBIN 34.3 pg (27.0-33.0); MEAN CORPUSCULAR HGB CONC 31.5 g/dl (32.0-36.5); MEAN CORPUSCULAR VOLUME 108.7 fl (80.0-96.0); MONO # 0.6 K/mm3 (0.0-0.8); MONO % 7.3 % (0.0-5.0); NEUTROPHILS # 5.9 K/mm3 (1.8-7.7); NEUTROPHILS % 78.1 % (36.0-66.0); PLATELET COUNT, AUTOMATED 268 k/mm3 (150-450); RED CELL DISTRIBUTION WIDTH 15.7 % (11.5-14.5); WHITE BLOOD COUNT 7.5 K/mm3 (4.0-10.0)
[2016-11-04 05:14] LABS: INR 2.4
[2016-11-04 05:32] LABS: ALBUMIN 3.5 GM/DL (3.2-5.2); ALBUMIN/GLOBULIN RATIO 0.81 (1.00-1.93); BILIRUBIN,TOTAL 0.5 MG/DL (0.2-1.0); CALCIUM LEVEL 9.5 MG/DL (8.5-10.1); CREATININE FOR GFR 1.4 MG/DL (0.55-1.02); GLOMERULAR FILTRATION RATE 41.1 (>51); POTASSIUM SERUM 3.5 MEQ/L (3.5-5.1); TOTAL PROTEIN 7.8 GM/DL (6.4-8.2)
[2016-11-04 08:00] VITALS: BP 106/56
[2016-11-04 09:00] VITALS: BP 94/63
[2016-11-04] MEDS: ISOSORBIDE MON. (IMDUR) 60 MG XR TAB PO SCH (09:00)
[2016-11-04] MEDS: OMEPRAZOLE 20 MG CAP PO SCH (09:11)
[2016-11-04] MEDS: FENOFIBRATE 145 MG TAB (TRICOR) PO SCH (09:11)
[2016-11-04] MEDS: ATORVASTATIN 20 MG TAB PO SCH (09:11)
[2016-11-04] MEDS: ASPIRIN 81 MG ENTERIC TAB PO SCH (09:12)
[2016-11-04] MEDS: DULoxetine 20 MG CAP (CYMBALTA) PO SCH (09:12)
[2016-11-04] MEDS: oxyBUTYnin 5 MG TAB PO SCH (09:12)
[2016-11-04] MEDS: FERROUS SULFATE 325MG TAB PO SCH (09:12)
[2016-11-04] MEDS: TOPIRAMATE (TopAMAX) 25 MG TAB PO SCH (09:13)
[2016-11-04] MEDS: valACYclovir HCL 500 MG TAB PO SCH ×2 (09:13→15:40)
[2016-11-04] MEDS: FUROSEMIDE 40 MG TAB PO SCH (09:33)
[2016-11-04] MEDS: SPIRONOLACTONE 25 MG TAB PO SCH (09:33)
--- NOTE | 2016-11-04 09:57 | DSES ---
DATE OF ADMISSION: 11/01/2016 DATE OF DISCHARGE: 11/04/16 PRIMARY CARE PROVIDER: Nando Lal MD ATTENDING PROVIDER: Dr. Lev Barnett HISTORY: This is a 60-year-old female patient of Dr. Lal, who presented to [facility] Emergency Room complaining of right arm weakness and shortness of breath. She noted that her symptoms started the evening prior to her presentation, and the weakness was noted from her shoulder to the hand. She is right-hand dominant. She has a history of cerebrovascular accident (CVA); and, therefore, there was a concern for recurrent stroke. She also noticed worsening shortness of breath for 2 days prior to her presentation. She presented in the emergency room hypoxic with a pulse oximetry of 80% on 4 liters via nasal cannula. She was admitted to the hospital for right arm weakness with a subtherapeutic international normalized ratio (INR) and systolic and diastolic acute on chronic congestive heart failure. During her hospitalization, she has remained medically stable. Her right arm weakness resolved the evening of her presentation. She had a CT of the head, which was without any acute findings. She had a stable MRI/MRA of the brain in May of 2016. She continues on her home dose aspirin, high-dose statin, as well as anticoagulation with Coumadin. An MRA of the carotid was ordered. However, the MRI machine was down. I discontinued this order and ordered an ultrasound of the carotids at this time. She will have this prior to leaving the hospital this morning. She does have again a history of thrombus, on chronic anticoagulation. INR this morning is 2.4. She will continue her current dose with followup in 1 week for a PT/INR. She has been seen by physical therapy, who felt as though she was safe and at her baseline in terms of her function to return home. She feels comfortable returning home. She has no additional questions or concerns this morning. Her discharge diagnoses include: 1. Transient ischemic attack. 2. Left ventricular mural thrombus. 3. Acute on chronic systolic and diastolic congestive heart failure. 4. Coronary artery disease. 5. Obstructive sleep apnea. DISCHARGE MEDICATIONS: Include: - aspirin 81 mg daily - atenolol 50 mg daily - atorvastatin 80 mg daily - calcium with D one tablet daily - duloxetine 20 mg twice daily - fenofibrate 145 mg daily - ferrous sulfate 325 mg twice daily - furosemide 40 mg in the morning and 20 mg in the evening - isosorbide mononitrate 60 mg daily - nitroglycerin 0.4 mg sublingually as needed for chest pain - nortriptyline 24 mg before bed - omeprazole 20 mg twice daily - oxybutynin 5 mg twice daily - spironolactone 12.5 mg daily - topiramate 50 mg twice daily - Valtrex 1 gram by mouth three times a day - vitamin D 50,000 units once weekly - Coumadin 2 mg daily - Zylet one drop each eye twice daily - artificial tears each eye four times daily as needed for dry eye DISCHARGE PLAN: Will be to followup with Dr. Lal in 1 week, where she will need a PT/INR. Activity should be as tolerated. Diet should be [id number]. Attending attestation: I saw and evaluated the patient on the day of discharge, and I agree with the discharge plan of care as discussed and document by Meghana Banerjee. MD HARRISON Brewster
--- NOTE | 2016-11-04 11:22 | REP ---
Clinical: Transient ischemic attack . Technique: Murray scale and color Doppler evaluation using linear high frequency transducer Findings: Two-dimensional murray scale and color images demonstrate minimal age-related plaque at the carotid bulbs with normal arterial lumen, laminar flow and no appreciable narrowing. Color Doppler interrogation demonstrates normal arterial wave patterns and velocities with no significant spectral broadening. Normal flow direction is appreciated in the bilateral vertebral arteries. RIGHT (cm/s) LEFT (cm/s) ICA peak systolic velocity 56.7 62.6 ICA diastolic velocity 19.5 24.7 ECA peak systolic velocity 39.7 53.4 CCA peak systolic velocity 89.5 89.1 ICA/CCA ratio 0.63 0.70 Impression: No hemodynamically significant areas of narrowing or stenosis appreciated. Based on set standards narrowing falls within the normal range. Signed by Nathaniel Vegas MD 11/04/2016 11:14 A
== END 2016-11-04 16:55 | disposition home health service (06) | DRG 292 ==
LOC: EDBD 20:36 → M ED 21:28 → M ED INP 22:57 → M PCU 11-02 00:30
PROVIDERS: ADMIT General Practice; ATTEND Family Medicine
DX: I50.43 Acute on chronic combined systolic (congestive) and diastolic (congestive) heart failure (principal); G45.9 Transient cerebral ischemic attack, unspecified; N17.9 Acute kidney failure, unspecified; G47.33 Obstructive sleep apnea (adult) (pediatric); I11.0 Hypertensive heart disease with heart failure; E78.00 Pure hypercholesterolemia, unspecified; I25.10 Atherosclerotic heart disease of native coronary artery without angina pectoris; M81.0 Age-related osteoporosis without current pathological fracture; H10.9 Unspecified conjunctivitis; E53.8 Deficiency of other specified B group vitamins; H54.61 Unqualified visual loss, right eye, normal vision left eye; Z79.899 Other long term (current) drug therapy; Z86.73 Personal history of transient ischemic attack (TIA), and cerebral infarction without residual deficits; I25.2 Old myocardial infarction; Z91.14 Patient's other noncompliance with medication regimen; Z88.5 Allergy status to narcotic agent; Z88.8 Allergy status to other drugs, medicaments and biological substances; Z99.89 Dependence on other enabling machines and devices; Z99.81 Dependence on supplemental oxygen; Z87.891 Personal history of nicotine dependence; Z79.82 Long term (current) use of aspirin; Z79.01 Long term (current) use of anticoagulants

== ENCOUNTER 2016-11-16 07:52 | Inpatient (IN) | payer MEDICARE, MEDICAID ==
[~2016-11-16] VITALS: Ht 163.8 cm; Wt 89.2 kg
[~2016-11-16 07:52] MED LIST changes: +ASPI81TAEC PO; +DULO1CAP PO; +TOPI50TA4 PO
[2016-11-16] MEDS ORDERED: ONDANSETRON 4MG/2ML VIAL (J2405) IV ONE (08:15)
[2016-11-16 08:35] LABS: ABG BASE EXCESS 13.4 (-2.0-2.0); ABG HCO3 41.9 MEQ/L (22.0-26.0); ABG PARTIAL PRESSURE O2 154.9 mmHg (75.0-100.0); ABG STANDARD HCO3 37.2 MEQ/L (22.0-26.0); ABG TOTAL CO2 44.2 MEQ/L (22.0-29.0); ABG pH (ARTERIAL) 7.367 UNITS (7.350-7.450)
[2016-11-16 08:37] LABS: ABG PARTIAL PRESSURE CO2 74.6 mmHg (35.0-45.0)
[2016-11-16] MEDS ORDERED: CYMB1CAP4 PO (08:37)
[2016-11-16] MEDS ORDERED: CYAN1000VL IM (08:37)
[2016-11-16] MEDS ORDERED: DITR5TAB PO (08:37)
[2016-11-16] MEDS ORDERED: DRIS50002 PO (08:37)
[2016-11-16] MEDS ORDERED: LISI10TA4 PO (08:37)
[2016-11-16] MEDS ORDERED: IMDUR PO (08:37)
[2016-11-16] MEDS ORDERED: MULT1TAB10 PO (08:37)
[2016-11-16] MEDS: IPRATROPIUM 0.5MG/ALBUTEROL 2.5MG INH SOL UD 3ML (DUONEB)(J7620) NEB PRN ×2 (08:41→08:53)
[2016-11-16] MEDS ORDERED: methylPREDNISolone INJ 125 MG/2 ML VIAL (J2930) IV ONE (08:45)
[2016-11-16] MEDS: MULTIVITAMINS/MINERALS THERAP 1 TAB PO SCH ×2 (09:00→13:59)
[2016-11-16] MEDS ORDERED: SPIRONOLACTONE 25 MG TAB PO SCH (09:00)
[2016-11-16] MEDS: ISOSORBIDE MON. (IMDUR) 60 MG XR TAB PO SCH ×2 (09:00→13:50)
[2016-11-16] MEDS: ATORVASTATIN 20 MG TAB PO SCH ×2 (09:00→13:59)
[2016-11-16] MEDS: CALCIUM/VITAMIN D 500 MG TAB PO SCH ×2 (09:00→13:49)
[2016-11-16] MEDS: LISINOPRIL 10 MG TAB PO SCH ×2 (09:00→13:57)
[2016-11-16] MEDS: ASPIRIN 81 MG ENTERIC TAB PO SCH ×2 (09:00→13:58)
[2016-11-16] MEDS: FENOFIBRATE 145 MG TAB (TRICOR) PO SCH ×2 (09:00→13:51)
[2016-11-16 09:09] LABS: MEAN CORPUSCULAR HEMOGLOBIN 33.9 pg (27.0-33.0); MEAN CORPUSCULAR HGB CONC 31.4 g/dl (32.0-36.5); MEAN CORPUSCULAR VOLUME 107.8 fl (80.0-96.0); PLATELET COUNT, AUTOMATED 264 k/mm3 (150-450); RED CELL DISTRIBUTION WIDTH 14.8 % (11.5-14.5); WHITE BLOOD COUNT 13.5 K/mm3 (4.0-10.0)
[2016-11-16 09:14] LABS: INR 1.3
[2016-11-16] MEDS: NS 1,000 ML IV SCH ×2 (09:29→21:01)
[2016-11-16] MEDS ORDERED: FUROSEMIDE 100 MG/10 ML VIAL (J1940) IV ONE (09:30)
[2016-11-16 09:38] LABS: ALBUMIN 3.1 GM/DL (3.2-5.2); ALBUMIN/GLOBULIN RATIO 0.67 (1.00-1.93); ALKALINE PHOSPHATASE 64 U/L (45-117); ALT/SGPT 36 U/L (12-78); ANION GAP 3 MEQ/L (8-16); AST/SGOT 31 U/L (15-37); BILIRUBIN,DIRECT 0.3 MG/DL (0.0-0.2); BILIRUBIN,TOTAL 1.2 MG/DL (0.2-1.0); BLOOD UREA NITROGEN 17 MG/DL (7-18); CALCIUM LEVEL 8.7 MG/DL (8.5-10.1); CARBON DIOXIDE LEVEL 43 MEQ/L (21-32); CHLORIDE LEVEL 88 MEQ/L (98-107); CREATININE FOR GFR 0.97 MG/DL (0.55-1.02); GLOMERULAR FILTRATION RATE > 60.0 (>51); GLUCOSE, FASTING 160 MG/DL (70-105); POTASSIUM SERUM 3.9 MEQ/L (3.5-5.1); SODIUM LEVEL 134 MEQ/L (136-145); TOTAL PROTEIN 7.7 GM/DL (6.4-8.2)
--- NOTE | 2016-11-16 09:43 | REP ---
PORTABLE CHEST, ONE VIEW: HISTORY: Dyspnea. COMPARISON: 11/01/2016 An increase in interstitial markings is present in the lungs, consistent with chronic interstitial fibrosis. Patchy densities are present in the lungs, consistent with bilateral infiltrates or edema. The cardiac silhouette is enlarged. The pulmonary vasculature is obscured by the density in the lungs. IMPRESSION: 1. Chronic interstitial fibrosis. 2. There are patchy densities in the lungs, consistent with bilateral infiltrates or edema. 3. Cardiomegaly. Signed by Osman Denton MD 11/16/2016 09:45 A
[2016-11-16] MEDS ORDERED: ISOVUE-370 76% 100ML VIAL (Q9967) As Ordered ONE (09:49)
[2016-11-16 09:54] LABS: BANDS 1 % (< 11); POLYCHROMASIA 1+
--- NOTE | 2016-11-16 09:54 | ECGEPIP ---
Stationary ECG Study [facility] - ED Test Date: 2016-11-16 Pat Name: PRASAD TERRY Department: Room: - Gender: F Post Secondary Professional: RN : 1955 Requested By: Fifi Roth Order Number: [id number] Reading MD: Fifi Roth Measurements Intervals Termo Rate: 85 P: 39 RI: 186 QRS: -21 QRSD: 91 T: 11 QT: 336 QTc: 400 Interpretive Statements SINUS RHYTHM POSSIBLE ANTERIOR MYOCARDIAL INFARCTION, OF INDETERMINATE AGE INFERIOR MYOCARDIAL INFARCTION, PROBABLY OLD NSTTW ABNORMALITY SIMILAR 11/02/16 Electronically Signed On 11-16-2016 9:54:12 EDT by Fifi Roth
[2016-11-16 09:55] LABS: ANISOCYTOSIS 2+
[2016-11-16] MEDS ORDERED: MOXIFLOXACIN HCL 400 MG in APPROPRIATE DILUENT 1 EA IV ONE (10:30)
[2016-11-16 10:34] LABS: ABG HCO3 39.2 MEQ/L (22.0-26.0); ABG PARTIAL PRESSURE O2 58.8 mmHg (75.0-100.0); ABG STANDARD HCO3 32.5 MEQ/L (22.0-26.0); ABG TOTAL CO2 41.9 MEQ/L (22.0-29.0); ABG pH (ARTERIAL) 7.269 UNITS (7.350-7.450)
[2016-11-16 10:38] LABS: ABG PARTIAL PRESSURE CO2 87.5 mmHg (35.0-45.0)
[2016-11-16] MEDS ORDERED: ISOS60TA2 PO (10:38)
[2016-11-16] MEDS ORDERED: ACET-654 PO (10:40)
--- NOTE | 2016-11-16 11:40 | REP ---
CT ANGIO CHEST: HISTORY: Shortness of breath. CONTRAST: Isovue-370, 75 mL. COMPARISON: 08/14/2016 There are no filling defects in the main, right, and left pulmonary arteries or their branches. Patchy densities are present in the lungs, greater on the left than on the right, consistent with infiltrates. A small left pleural effusion is present. There are several enlarged mediastinal lymph nodes. These measure 1.7 to 1.9 cm in size. The cardiac silhouette is enlarged. Atherosclerotic calcification is present in the thoracic aorta. Calcification is present in the gallbladder, consistent with cholelithiasis. IMPRESSION: 1. There is no pulmonary embolism. 2. Small bilateral infiltrates, greater on the left than on the right. 3. Small left pleural effusion. 4. Mediastinal adenopathy. 5. Cholelithiasis. Signed by Osman Denton MD 11/16/2016 11:48 A
[2016-11-16] MEDS ORDERED: ACETAMINOPHEN 325 MG TAB PO PRN (12:15)
[2016-11-16] MEDS ORDERED: ONDANSETRON 4 MG TAB (S0181) PO PRN (12:15)
[2016-11-16] MEDS ORDERED: ALBUTEROL SULFATE 2.5 MG/0.5 ML INH NEB SOLN NEB PRN (12:15)
[2016-11-16] MEDS ORDERED: NITROGLYCERIN 0.4 MG SUBL TABLET SL PRN (12:30)
[2016-11-16] MEDS: IPRATROPIUM 0.5MG/ALBUTEROL 2.5MG INH SOL UD 3ML (DUONEB)(J7620) NEB SCH ×2 (12:52→20:57)
[2016-11-16 13:13] LABS: ABG BASE EXCESS 9.8 (-2.0-2.0); ABG HCO3 39.5 MEQ/L (22.0-26.0); ABG PARTIAL PRESSURE O2 67.7 mmHg (75.0-100.0); ABG STANDARD HCO3 33.4 MEQ/L (22.0-26.0); ABG TOTAL CO2 42.2 MEQ/L (22.0-29.0); ABG pH (ARTERIAL) 7.285 UNITS (7.350-7.450)
[2016-11-16 13:15] LABS: ABG PARTIAL PRESSURE CO2 85.1 mmHg (35.0-45.0)
[2016-11-16] MEDS: FUROSEMIDE 40 MG/4 ML VIAL (J1940) IV SCH ×3 (14:00→21:01)
[2016-11-16 15:11] LABS: ABG HCO3 46.7 MEQ/L (22.0-26.0); ABG PARTIAL PRESSURE CO2 95.1 mmHg (35.0-45.0); ABG PARTIAL PRESSURE O2 62.6 mmHg (75.0-100.0); ABG STANDARD HCO3 39.8 MEQ/L (22.0-26.0); ABG TOTAL CO2 49.6 MEQ/L (22.0-29.0); ABG pH (ARTERIAL) 7.309 UNITS (7.350-7.450)
--- NOTE | 2016-11-16 15:13 | CCN ---
DATE: 11/16/2016 START TIME: 1341 hours STOP TIME: 1421 hours I attended Ms. Arley ogden here in the emergency department. The patient was examined. Medical record was reviewed. I spoken at length with the emergency room staff, as well as primary admitting service. In essence, this is a 60-year-old female with known cardiac dysfunction, atherosclerotic cerebrovascular disease with history of stroke, known previous myocardial infarction, whom has been admitted the last several times for congestive heart failure. She also has underlying obstructive lung disease and is oxygen dependent with 4 liters at home. I see documentation regarding obstructive sleep apnea syndrome on home continuous positive airway pressure (CPAP), but I have no record of pressures. She presented today just not feeling well. She only stated shortness of breath. Intermittently, she was noticed to have oxygen saturations in the 70s. She was placed on supplemental oxygen. First blood gas showed a pH of 7.367, PCO2 of 74.6, and PO2 of 154. That is on an unknown amount of supplemental oxygen. The level of FiO2 was then diminished and a repeat gas showed a pH of 7.269, PCO2 of 87.5, and PO2 of 58. She was then placed on noninvasive support. Workup to that point revealed that she had significant underlying congestive heart failure with pulmonary edema. Diuretics were given. She had also undergone a CT angiogram and did receive contrast dye. Blood gas then done at 1303 hours on noninvasive support showed a pH of 7.285, PCO2 of 85, and PO2 of 67. Currently on those settings, she moved tidal volumes of around 250. Upon my arrival to the room, she had taken the mask off to take a sip of water for some oral medications and oxygen saturations quickly dropped into the 50s. Mask was then returned, adjustments were made by myself, oxygen saturation currently 97% on 45% FiO2. After adjustments made on the bilevel positive airway pressure (BIPAP), spontaneous tidal volumes now are around 350. She is breathing around 18 to 20 times a minute and says that she is currently fairly comfortable. Currently, blood pressure 130/60, heart rate in the 90s with a sinus mechanism. Respiratory rate 18 to 22 without accessory muscle use. Chest x-ray and CT scan clearly show vascular congestion, pulmonary edema. Other laboratories show white blood cell count 13.5, hemoglobin 12.2, platelet count 264,000, 92% segmented neutrophils, 1% bands. Sodium 134, potassium 3.9, chloride 88, CO2 43, BUN 17, creatinine 0.97, glucose 160, lactic acid only 1.3. BNP 1390. PHYSICAL EXAMINATION: Bilevel mask is in place. She is comfortable. Pupils show previous surgical manipulation on the right. The left does react. Trachea is in the midline. Jugular venous system is difficult to assess with her mask in place. CHEST: Shows diminished but symmetric expansion. Fairly clear anteriorly. There are crackles posteriorly. There is a faint end expiratory wheeze in the mid zones. CARDIAC: Exam is distant, generally regular. Peripheral pulses are markedly diminished, at least trace lower extremity edema bilaterally. ABDOMEN: Obese, soft. Active bowel sounds. No convincing organomegaly or masses. EXTREMITIES: No cyanosis, edema or clubbing. NEUROLOGIC: She is awake, alert, and appropriate. PSYCHIATRIC: Normal mood and affect. The most pressing problems requiring my presence at the bedside are: 1. Acute on chronic respiratory failure, both hypoxemic and hypercapnic. 2. Congestive heart failure (CHF), compensated. 3. Chronic obstructive pulmonary disease (COPD) with home oxygen dependence. 4. Obstructive sleep apnea by history. 5. Coronary artery disease. 6. Atherosclerotic cerebrovascular disease. 7. Previous myocardial infarction. 8. Previous stroke. 9. Chronic anticoagulation. At this point, adjustments were made in the noninvasive level of support. She is being aggressively diuresed by the primary service. We will continue her current pulmonary toilet. Repeat blood gas is pending. We will facilitate transfer to the intensive care unit (ICU) when a bed is available. As outlined above, I have spoken at length with the primary service as well. At this point, we await response to the above therapies. I left the bedside at 1421 hours. 41 minutes of critical care time was delivered at the bedside, not including procedures.
[2016-11-16] MEDS: WARFARIN SOD 2 MG TAB PO SCH (17:00)
[2016-11-16] MEDS: ENOXAPARIN 40 MG/0.4 ML SYRINGE (J1650) SC SCH (18:00)
[2016-11-16 18:59] LABS: ABG BASE EXCESS 16.5 (-2.0-2.0); ABG HCO3 45.9 MEQ/L (22.0-26.0); ABG PARTIAL PRESSURE O2 57.9 mmHg (75.0-100.0); ABG STANDARD HCO3 40.3 MEQ/L (22.0-26.0); ABG TOTAL CO2 48.5 MEQ/L (22.0-29.0); ABG pH (ARTERIAL) 7.354 UNITS (7.350-7.450)
[2016-11-16 19:01] LABS: ABG PARTIAL PRESSURE CO2 84.3 mmHg (35.0-45.0)
[2016-11-16] MEDS: valACYclovir HCL 500 MG TAB PO SCH (21:00)
[2016-11-16] MEDS ORDERED: ZYLET OD SCH (21:00)
[2016-11-16] MEDS: NORTRIPTYLINE 25 MG CAP PO SCH (21:00)
[2016-11-16] MEDS: OMEPRAZOLE 20 MG CAP PO SCH (21:00)
[2016-11-16] MEDS: ATENOLOL 50 MG TAB PO SCH (21:00)
[2016-11-16] MEDS: DOCUSATE SODIUM 100 MG CAP PO SCH (21:00)
[2016-11-16] MEDS: DULoxetine 20 MG CAP (CYMBALTA) PO SCH (21:00)
[2016-11-16] MEDS: oxyBUTYnin 5 MG TAB PO SCH (21:00)
[2016-11-17] VITALS (28 sets, daily range): BP systolic 79–154; BP diastolic 44–98; O2SAT 97–99
[2016-11-17] MEDS: FUROSEMIDE 40 MG/4 ML VIAL (J1940) IV SCH ×6 (00:15→20:21)
[2016-11-17] MEDS: IPRATROPIUM 0.5MG/ALBUTEROL 2.5MG INH SOL UD 3ML (DUONEB)(J7620) NEB SCH ×4 (01:07→20:45)
[2016-11-17 04:41] LABS: MEAN CORPUSCULAR HEMOGLOBIN 33.6 pg (27.0-33.0); MEAN CORPUSCULAR HGB CONC 31.3 g/dl (32.0-36.5); MEAN CORPUSCULAR VOLUME 107.4 fl (80.0-96.0); RED CELL DISTRIBUTION WIDTH 14.9 % (11.5-14.5); WHITE BLOOD COUNT 10.8 K/mm3 (4.0-10.0)
[2016-11-17 04:42] LABS: INR 1.38
[2016-11-17 04:51] LABS: ALBUMIN 2.8 GM/DL (3.2-5.2); ALBUMIN/GLOBULIN RATIO 0.64 (1.00-1.93); ALKALINE PHOSPHATASE 54 U/L (45-117); ALT/SGPT 31 U/L (12-78); AST/SGOT 17 U/L (15-37); BILIRUBIN,TOTAL 0.6 MG/DL (0.2-1.0); BLOOD UREA NITROGEN 16 MG/DL (7-18); CALCIUM LEVEL 8.3 MG/DL (8.5-10.1); CHLORIDE LEVEL 88 MEQ/L (98-107); CREATININE FOR GFR 0.87 MG/DL (0.55-1.02); GLOMERULAR FILTRATION RATE > 60.0 (>51); GLUCOSE, FASTING 130 MG/DL (70-105); MAGNESIUM LEVEL 1.8 MG/DL (1.8-2.4); POTASSIUM SERUM 3.5 MEQ/L (3.5-5.1); SODIUM LEVEL 140 MEQ/L (136-145); TOTAL PROTEIN 7.2 GM/DL (6.4-8.2)
[2016-11-17] MEDS: SLF 3 ML SYR IV SCH ×3 (05:00→21:19)
[2016-11-17] MEDS ORDERED: SLF 3 ML SYR IV PRN (05:15)
[2016-11-17 05:23] LABS: CARBON DIOXIDE LEVEL 58 MEQ/L (21-32)
--- NOTE | 2016-11-17 07:27 | ECHO ---
DATE: 11/16/2016 REFERRING PHYSICIAN: Dr. Donis Robert INDICATION: Dyspnea. Patient measures 164 cm and weighs 84 kg. DIMENSIONS: IVS 1.2 LV 4.0 LVPW 1.2 LA 3.9 Aorta 3.0 FINDINGS: The study is of very limited technical quality. Left ventricle is of normal size and overall probably normal contractility, but due to limited nature of the images I could have missed even substantial wall motion abnormalities. Right ventricle appears normal. Both atria are at least mildly enlarged. Aortic valve is mildly sclerotic but has preserved mobility. Mitral valve also exhibits mild degenerative abnormalities, but mobility of leaflets is preserved. Tricuspid valve appears normal. Pulmonic valve was not well seen. No pericardial effusion is noted. Inferior vena cava is dilated, and there is no appreciable collapse with respiration indicative of very high central venous pressure. Aortic root is normal. Aortic arch was not well visualized. Abdominal aorta appears normal. Doppler interrogation of aortic valve reveals no significant stenosis or insufficiency. There is also no significant mitral valve disease. There is trace tricuspid insufficiency, but quality of tricuspid regurgitation (TR) jet was poor and, consequently, I am unable to estimate pulmonary artery pressure. Pulmonic valve appears functionally competent. Mitral inflow pattern and tissue Doppler imaging of mitral annulus reveal grade 2 diastolic dysfunction (mitral inflow E velocity is 70 cm/s, mitral annulus E prime septal velocity 4.0 and lateral 4.1 cm/s). CONCLUSIONS: 1. Study is of limited technical quality. 2. Normal left ventricular (LV) size with mild LVH and overall probably normal LV systolic function. Grade 1 diastolic dysfunction. 3. No significant valvular disease. 4. Very high central venous pressure. 5. Unable to estimate pulmonary artery pressure. COMMENT: Subacute bacterial endocarditis (SBE) prophylaxis not recommended.
[2016-11-17 08:59] LABS: ABG BASE EXCESS 21.6 (-2.0-2.0); ABG HCO3 46.9 MEQ/L (22.0-26.0); ABG PARTIAL PRESSURE CO2 54.4 mmHg (35.0-45.0); ABG PARTIAL PRESSURE O2 130.7 mmHg (75.0-100.0); ABG STANDARD HCO3 46.1 MEQ/L (22.0-26.0); ABG TOTAL CO2 48.5 MEQ/L (22.0-29.0); ABG pH (ARTERIAL) 7.553 UNITS (7.350-7.450)
[2016-11-17] MEDS ORDERED: SPIRONOLACTONE 25 MG TAB PO SCH (09:00)
[2016-11-17] MEDS: SPIRONOLACTONE 12.5MG PER 1/2 TABLET PO SCH (09:15)
[2016-11-17] MEDS: DULoxetine 20 MG CAP (CYMBALTA) PO SCH ×2 (09:16→20:22)
[2016-11-17] MEDS: DOCUSATE SODIUM 100 MG CAP PO SCH ×2 (09:16→20:22)
[2016-11-17] MEDS: oxyBUTYnin 5 MG TAB PO SCH ×2 (09:17→20:23)
[2016-11-17] MEDS: ISOSORBIDE MON. (IMDUR) 60 MG XR TAB PO SCH (09:18)
[2016-11-17] MEDS: ASPIRIN 81 MG ENTERIC TAB PO SCH (09:18)
[2016-11-17] MEDS: ATORVASTATIN 20 MG TAB PO SCH (09:20)
[2016-11-17] MEDS: CALCIUM/VITAMIN D 500 MG TAB PO SCH (09:20)
[2016-11-17] MEDS: OMEPRAZOLE 20 MG CAP PO SCH ×2 (09:20→20:22)
[2016-11-17] MEDS: LISINOPRIL 10 MG TAB PO SCH (09:21)
[2016-11-17] MEDS: FENOFIBRATE 145 MG TAB (TRICOR) PO SCH (09:21)
[2016-11-17] MEDS: MULTIVITAMINS/MINERALS THERAP 1 TAB PO SCH (09:21)
[2016-11-17] MEDS: ZYLET OD SCH ×2 (09:22→20:23)
[2016-11-17] MEDS: valACYclovir HCL 500 MG TAB PO SCH ×2 (09:22→20:22)
[2016-11-17] MEDS: EYE OD SCH ×2 (09:22→20:23)
--- NOTE | 2016-11-17 10:17 | CCN ---
DATE: 11/17/2016 I attended Ngozi Tubbs here in the intensive care unit (ICU). She is awake, alert and appropriate. She is quite conversant this morning with the noninvasive mask in place. Maximum temperature (t-max) overnight 98.2, blood pressure 110 to 150 systolic, heart rate 70 to 80s, respiratory rate generally in the teens to low 20s without accessory muscle use. Input and output through midnight was 90 mL in with 1350 out. Since midnight 1646 mL in with 2650 mL out. She is negative approximately 2300 mL since admission. LABORATORY DATA: White blood cell count 10.8, hemoglobin 8.1, platelet count 255,000. Sodium 140, potassium 3.5, chloride 88, CO2 of 58, BUN 16, creatinine 0.87, glucose 130. Blood gas done this morning on a inspiratory pressure of 18 and expiratory pressure of 14 with a backup rate of 8, FiO2 of 40% has a pH of 7.553, PCO2 of 54.4 and PO2 of 130.7. Manipulations have just been made by myself. PHYSICAL EXAMINATION: She is awake, alert, appropriate and quite conversant this morning. Pupils reactive, sclerae clear. Trachea is midline. Jugular venous distention (JVD) is difficult to assess with the noninvasive mask in place. Chest shows globally decreased breath sound intensity. There are some fine crackles at the bases. No convincing wheeze or rhonchus today. Cardiac examination is distant, generally regular. Peripheral pulses are diminished with palpable trace edema. Abdomen is soft, nontender. Active bowel sounds. No convincing organomegaly or masses. Extremities show no cyanosis or clubbing. Neurologically, she is awake, alert and appropriate. Psychiatric shows normal mood and affect. IMPRESSION: 1. Acute on chronic respiratory failure, both hypoxemic and hypercapnic. 2. Congestive heart failure, decompensated. 3. Underlying obstructive lung disease on 4 liters nasal cannula oxygen at home. 4. Obstructive sleep apnea syndrome according to the chart. At this point, we will make adjustments in her noninvasive pressures. Hopefully, we can try her off to her usual nasal cannula oxygen flow and see how she does. We will continue her current pulmonary toilet. Management of her heart failure is through her primary service. Hopefully, she will be able to tolerate nutrition today. We will proceed as outlined above. Further recommendations will be made in the progress record as new information becomes available.
[2016-11-17] MEDS ORDERED: METOPROLOL 5 MG/5 ML VIAL IV STA ×2 (11:21→11:40)
[2016-11-17] MEDS ORDERED: METOPROLOL 5 MG/5 ML VIAL As Ordered ONE (11:22)
[2016-11-17] MEDS ORDERED: ATENOLOL 50 MG TAB PO STA (11:40)
[2016-11-17] MEDS ORDERED: AMIODARONE HCL 150 MG/100 ML PREMIXED BAG (NEXTERONE) As Ordered ONE (12:02)
[2016-11-17] MEDS: POTASSIUM CHLORIDE 10 MEQ SR TABLET PO SCH (12:19)
[2016-11-17] MEDS ORDERED: AMIODARONE HCL 150 MG/100 ML PREMIXED BAG (NEXTERONE) IV STA (12:26)
[2016-11-17] MEDS: ENOXAPARIN 40 MG/0.4 ML SYRINGE (J1650) SC SCH (17:38)
[2016-11-17] MEDS: WARFARIN SOD 2 MG TAB PO SCH (17:38)
--- NOTE | 2016-11-17 19:10 | IPNPDOC ---
Subjective Date Seen The patient was seen on 11/17/16. Subjective Chief Complaint/HPI The patient is a 60-year-old female admitted with a reason for visit of Gastroenteritis And Colitis,Viral,Systolic And [place]. Events since last encounter I was called urgently to the floor this morning because Ms. Tubbs has gone into atrial fibrillation with rapid ventricular response. Fortunately she is entirely asymptomatic and continues talking through her BiPAP mask and the entire effort to control her rate. She has not been able to effectively weaned off bilevel ventilation since this was started down in the emergency department for her combined hypoxic and hypercapnic acute respiratory failure. Dr. Hassan is managing this portion of her care. General: Reports: Normal Appetite (she is disturbed by the fact that she cannot eat regularly because of her dependence on bilevel ventilation) Constitutional: Denies: Chills Pulmonary: Reports: Dyspnea, Denies: Cough Cardiovascular: Denies: Chest Pain, Palpitations Gastrointestinal: Denies: Nausea Genitourinary: Denies: Dysuria Psych: Reports: Mood Normal Objective Physical Examination General Exam: Positive: Alert, Cooperative, No Acute Distress (talking persistently through resuscitative efforts) Eye Exam: Positive: Conjunctiva & lids normal, Negative: Sclera icteric ENT Exam: Positive: Mucous membr. moist/pink Neck Exam: Positive: Supple, Negative: Lymphadenopathy Chest Exam: Positive: Rales (there are still rales noted at the left posterior base, but they're much less than they were before. I don't note rales on the right side any more.), Other (on bilevel ventilation) Heart Exam: Positive: Tachycardic, Irregular Rhythm, Normal S1, Normal S2 Telemetry: Positive: Atrial fibrillation (rapid ventricular response in the 160s) Abdomen Exam: Positive: Normal bowel sounds, Soft, Negative: Tenderness Extremity Exam: Positive: Edema (trace bimalleolar pitting edema) Skin Exam: Positive: Nl turgor and temperature Psych Exam: Positive: Mood NL, Memory Intact, Oriented x 3 Assessment /Plan Problems (1) Acute on chronic respiratory failure with hypoxia and hypercapnia Status: Acute Discussed With: Helicopter Mechanic, Patient Problem Text: Unfortunately we have not been able to wean her off of bilevel ventilation. Dr. Hassan is assisting with this portion of her care. I appreciate his input. (2) Atrial fibrillation with rapid ventricular response Status: Acute Discussed With: Patient Problem Text: This is new for her as far as I can tell. She tells me she's had atrial fibrillation in the past. I do note that her atenolol was held last night in the emergency department for unclear reasons. I suspect that has something to do with why she is now in RVR. I'm going to start with giving her IV Lopressor and administering the oral atenolol she did not receive earlier. We 'll see how things go. She is supposed to be on lifetime anticoagulation for her left ventricular mural thrombus. However, she is currently subtherapeutic as she's not been able to take her warfarin for the last several days because of her nausea and vomiting. I will change her to treatment doses of Lovenox until we can get her therapeutic on the warfarin. Update: After 2 doses of IV Lopressor approximately 15 minutes apart her pressure started getting soft (79/45). She remained asymptomatic, and continued to discuss her frustrations with the insurance companies regarding getting a new CPAP mask at this time. However, it became clear that further beta yayo was not going to be tolerated. Therefore, I gave her a one-time dose of 150 mg of amiodarone to see if we could convert her back to sinus rhythm. A couple hours later her rate was down in the 90s to 100s but she was still in atrial fibrillation. My suspicion is the oral atenolol, not the amiodarone had a positive effect. (3) Acute on chronic combined systolic (congestive) and diastolic (congestive) heart failure Status: Acute Response to Treatment: Improving Discussed With: Nurse, Patient Problem Text: She has diuresed some. Her congestive heart failure seems to be slowly heading toward a compensated state. We'll continue current regimen, monitor. (4) Gastroenteritis and colitis, viral Response to Treatment: Improving Problem Text: Based on her hunger and request for orange popsicles while she is on BiPAP I think that her gastroenteritis is pretty well resolved. (5) Left ventricular mural thrombus Status: Chronic Problem Specific Plan: Repeat Labs Problem Text: Her INR has not improved much today, however I suspect she's missed several doses of Coumadin. Additionally many of her oral medications have had to be delayed while here because she is on bilevel ventilation. We will continue to do what we can to try to get her anticoagulated once more. Meanwhile I will switch her to treatment doses of Lovenox. Plan/VTE VTE Prophylaxis Ordered?: Yes (Lovenox, warfarin, SCDs, teds) Plan/Urinary Catheter Reason for insertion/continuin: Critical Pt monitoring VS, I&O, 24H, Fishbone Vital Signs/I&O Vital Signs Date Time Temp Pulse Resp B/P (MAP) Pulse Ox O2 Delivery O2 Flow Rate FiO2 11/17/16 16:09 30 11/17/16 12:00 BIPAP/CPAP 11/17/16 11:47 164 107/59 11/17/16 08:00 98.2 24 98 11/16/16 08:38 10.0 I&O- Last 24 Hours up to 6 AM 11/17/16 06:00 Intake Total 1506 ml Output Total 3450 ml Balance -1944 ml Laboratory Data 24H LABS Laboratory Tests 2 11/17/16 04:17: Prothrombin Time 17.1H, Prothromb Time International Ratio 1.38 11/17/16 04:18: Anion Gap , Glomerular Filtration Rate > 60.0, Blood Urea Nitrogen 16, Creatinine 0.87, Sodium Level 140, Potassium Level 3.5, Chloride Level 88L, Carbon Dioxide Level 58H, Calcium Level 8.3L, Aspartate Amino Transf (AST/SGOT) 17, Alanine Aminotransferase (ALT/SGPT) 31, Alkaline Phosphatase 54, Total Bilirubin 0.6, Total Protein 7.2, Albumin 2.8L, Magnesium Level 1.8, Albumin/ Globulin Ratio 0.64L 11/17/16 08:50: Blood Gas Bicarbonate Standard 46.1H, Arterial Blood pH 7.553H, Arterial Blood Partial Pressure CO2 54.4H, Arterial Blood Partial Pressure O2 130.7H, Arterial Blood Total CO2 48.5H, Arterial Blood HCO3 46.9H, Arterial Blood Base Excess 21.6H, Arterial Blood Oxygen Saturation 99.1H CBC/BMP Laboratory Tests 11/17/16 04:17 Red Blood Count 3.29 L, Mean Corpuscular Volume 107.4 H, Mean Corpuscular Hemoglobin 33.6 H, Mean Corpuscular Hemoglobin Concent 31.3 L, Red Cell Distribution Width 14.9 H 11/17/16 04:18 Calcium Level 8.3 L, Aspartate Amino Transf (AST/SGOT) 17, Alanine Aminotransferase (ALT/SGPT) 31, Alkaline Phosphatase 54, Total Bilirubin 0.6, Total Protein 7.2, Albumin 2.8 L Microbiology Microbiology 11/16/16 Blood Culture - Preliminary, Resulted No growth after 24 hours . All specim... 11/16/16 Blood Culture - Preliminary, Resulted No growth after 24 hours . All specim... Donis Robert MD Nov 17, 2016 19:10
[2016-11-17] MEDS ORDERED: ENOXAPARIN 40 MG/0.4 ML SYRINGE (J1650) SC SCH (20:00)
[2016-11-17] MEDS: NORTRIPTYLINE 25 MG CAP PO SCH (20:22)
[2016-11-17] MEDS: ATENOLOL 50 MG TAB PO SCH (20:22)
[2016-11-18] VITALS (17 sets, daily range): BP systolic 79–141; BP diastolic 49–90; O2SAT 93
[2016-11-18] MEDS: FUROSEMIDE 40 MG/4 ML VIAL (J1940) IV SCH ×6 (00:44→20:00)
[2016-11-18] MEDS: IPRATROPIUM 0.5MG/ALBUTEROL 2.5MG INH SOL UD 3ML (DUONEB)(J7620) NEB SCH ×4 (01:44→19:31)
[2016-11-18 04:08] LABS: MEAN CORPUSCULAR HEMOGLOBIN 33.6 pg (27.0-33.0); MEAN CORPUSCULAR VOLUME 108.5 fl (80.0-96.0); WHITE BLOOD COUNT 10.9 K/mm3 (4.0-10.0)
[2016-11-18 04:11] LABS: INR 1.42
[2016-11-18 04:26] LABS: ALBUMIN 2.8 GM/DL (3.2-5.2); ALBUMIN/GLOBULIN RATIO 0.67 (1.00-1.93); BILIRUBIN,TOTAL 0.7 MG/DL (0.2-1.0); CALCIUM LEVEL 8.9 MG/DL (8.5-10.1); CREATININE FOR GFR 1.1 MG/DL (0.55-1.02); GLOMERULAR FILTRATION RATE 54.3 (>51); POTASSIUM SERUM 3.1 MEQ/L (3.5-5.1)
[2016-11-18] MEDS: SLF 3 ML SYR IV SCH ×3 (05:12→21:08)
--- NOTE | 2016-11-18 07:34 | IPNPDOC ---
Subjective Date Seen The patient was seen on 11/18/16. Subjective Chief Complaint/HPI The patient is a 60-year-old female admitted with a reason for visit of Gastroenteritis And Colitis,Viral,Systolic And Nakita. Events since last encounter Pt states she is feeling better. States breathing is better and denies any current SOB. Denies CP or abd pain. Constitutional: Denies: Chills, Fever Pulmonary: Denies: Dyspnea Cardiovascular: Denies: Chest Pain, Palpitations Gastrointestinal: Denies: Nausea, Vomiting, Abdominal Pain Objective Physical Examination General Exam: Positive: Alert, Cooperative, No Acute Distress (talking persistently through resuscitative efforts) Eye Exam: Positive: Conjunctiva & lids normal, Negative: Sclera icteric ENT Exam: Positive: Mucous membr. moist/pink Neck Exam: Positive: Supple, Negative: Lymphadenopathy Chest Exam: Positive: Clear to auscultation, Other (on bilevel ventilation) Heart Exam: Positive: Rate Normal, Irregular Rhythm, Normal S1, Normal S2 Telemetry: Positive: Atrial fibrillation Abdomen Exam: Positive: Normal bowel sounds, Soft, Negative: Tenderness Extremity Exam: Negative: Edema Skin Exam: Positive: Nl turgor and temperature Psych Exam: Positive: Mood NL, Memory Intact, Oriented x 3 Assessment /Plan Problems (1) Acute on chronic respiratory failure with hypoxia and hypercapnia Status: Acute Discussed With: Fast Food Team Member, Patient Problem Text: Unfortunately we have not been able to wean her off of bilevel ventilation. Dr. Hassan is assisting with this portion of her care. I appreciate his input. (2) Atrial fibrillation with rapid ventricular response Status: Acute Discussed With: Patient Problem Text: 11/18 - Atenolol 50 mg daily. Received a dose of amiodarone yesterday. HR currently 80s to 109. On Warfarin and Lovenox until INR therapeutic. INR 1.42 today. 11/17 - This is new for her as far as I can tell. She tells me she's had atrial fibrillation in the past. I do note that her atenolol was held last night in the emergency department for unclear reasons. I suspect that has something to do with why she is now in RVR. I'm going to start with giving her IV Lopressor and administering the oral atenolol she did not receive earlier. We'll see how things go. She is supposed to be on lifetime anticoagulation for her left ventricular mural thrombus. However, she is currently subtherapeutic as she's not been able to take her warfarin for the last several days because of her nausea and vomiting. I will change her to treatment doses of Lovenox until we can get her therapeutic on the warfarin. Update: After 2 doses of IV Lopressor approximately 15 minutes apart her pressure started getting soft (79/45). She remained asymptomatic, and continued to discuss her frustrations with the insurance companies regarding getting a new CPAP mask at this time. However, it became clear that further beta yayo was not going to be tolerated. Therefore, I gave her a one-time dose of 150 mg of amiodarone to see if we could convert her back to sinus rhythm. A couple hours later her rate was down in the 90s to 100s but she was still in atrial fibrillation. My suspicion is the oral atenolol, not the amiodarone had a positive effect. (3) Acute on chronic combined systolic (congestive) and diastolic (congestive) heart failure Status: Acute Response to Treatment: Improving Discussed With: Nurse, Patient Problem Text: 11/18 - On Lasix 40 mg IV q4hrs. On Spironolactone 12.5 mg daily. 11/17 - She has diuresed some. Her congestive heart failure seems to be slowly heading toward a compensated state. We'll continue current regimen, monitor. (4) Gastroenteritis and colitis, viral Response to Treatment: Improving Problem Text: Based on her hunger and request for orange popsicles while she is on BiPAP I think that her gastroenteritis is pretty well resolved. (5) Left ventricular mural thrombus Status: Chronic Problem Specific Plan: Repeat Labs Problem Text: Her INR has not improved much today, however I suspect she's missed several doses of Coumadin. Additionally many of her oral medications have had to be delayed while here because she is on bilevel ventilation. We will continue to do what we can to try to get her anticoagulated once more. Meanwhile I will switch her to treatment doses of Lovenox. (6) Hypokalemia Status: Acute Problem Specific Plan: Monitor Clinically, Repeat Labs Problem Text: Scheduled to receive KCl 40 MEQ at 0900 am. Will order an additional 20 MEQ to be given 4 hrs later at 1pm. Plan/VTE VTE Prophylaxis Ordered?: Yes (Lovenox, warfarin, SCDs, teds) Plan/Urinary Catheter Reason for insertion/continuin: Critical Pt monitoring VS, I&O, 24H, Fishbone Vital Signs/I&O Vital Signs Date Time Temp Pulse Resp B/P (MAP) Pulse Ox O2 Delivery O2 Flow Rate FiO2 11/18/16 06:01 89 20 103/67 (79) 98 NIPPV (BIPAP/CPAP) 40 11/18/16 04:01 98.3 11/16/16 08:38 10.0 I&O- Last 24 Hours up to 6 AM 11/18/16 06:00 Intake Total 940 ml Output Total 1955 ml Balance -1015 ml Laboratory Data 24H LABS Laboratory Tests 2 11/17/16 08:50: Blood Gas Bicarbonate Standard 46.1H, Arterial Blood pH 7.553H, Arterial Blood Partial Pressure CO2 54.4H, Arterial Blood Partial Pressure O2 130.7H, Arterial Blood Total CO2 48.5H, Arterial Blood HCO3 46.9H, Arterial Blood Base Excess 21.6H, Arterial Blood Oxygen Saturation 99.1H 11/18/16 03:52: Prothrombin Time 17.5H, Prothromb Time International Ratio 1.42, Anion Gap 4L, Glomerular Filtration Rate 54.3, Blood Urea Nitrogen 30#H, Creatinine 1.10H, Sodium Level 138, Potassium Level 3.1L, Chloride Level 85L, Carbon Dioxide Level 49H, Calcium Level 8.9, Aspartate Amino Transf (AST/SGOT) 20, Alanine Aminotransferase (ALT/SGPT) 28, Alkaline Phosphatase 50, Total Bilirubin 0.7, Total Protein 7.0, Albumin 2.8L, Albumin/Globulin Ratio 0.67L CBC/BMP Laboratory Tests 11/18/16 03:52 Red Blood Count 3.65 L, Mean Corpuscular Volume 108.5 H, Mean Corpuscular Hemoglobin 33.6 H, Mean Corpuscular Hemoglobin Concent 31.0 L, Red Cell Distribution Width 15.0 H, Calcium Level 8.9, Aspartate Amino Transf (AST/SGOT) 20, Alanine Aminotransferase (ALT/SGPT) 28, Alkaline Phosphatase 50, Total Bilirubin 0.7, Total Protein 7.0, Albumin 2.8 L Microbiology Microbiology 11/16/16 Blood Culture - Preliminary, Resulted No growth after 24 hours . All specim... 11/16/16 Blood Culture - Preliminary, Resulted No growth after 24 hours . All specim... Nikos Badillo Nov 18, 2016 07:34
[2016-11-18] MEDS: ENOXAPARIN 80 MG/0.8 ML SYRINGE (J1650) SC SCH ×2 (08:19→21:03)
[2016-11-18] MEDS: OMEPRAZOLE 20 MG CAP PO SCH ×2 (08:36→21:05)
[2016-11-18] MEDS: MULTIVITAMINS/MINERALS THERAP 1 TAB PO SCH (08:36)
[2016-11-18] MEDS: CALCIUM/VITAMIN D 500 MG TAB PO SCH (08:36)
[2016-11-18] MEDS: SPIRONOLACTONE 12.5MG PER 1/2 TABLET PO SCH (08:36)
[2016-11-18] MEDS: FENOFIBRATE 145 MG TAB (TRICOR) PO SCH (08:36)
[2016-11-18] MEDS: LISINOPRIL 10 MG TAB PO SCH (08:36)
[2016-11-18] MEDS: oxyBUTYnin 5 MG TAB PO SCH ×2 (08:36→21:04)
[2016-11-18] MEDS: ASPIRIN 81 MG ENTERIC TAB PO SCH (08:37)
[2016-11-18] MEDS: DOCUSATE SODIUM 100 MG CAP PO SCH ×2 (08:37→21:04)
[2016-11-18] MEDS: POTASSIUM CHLORIDE 10 MEQ SR TABLET PO SCH (08:37)
[2016-11-18] MEDS: ATORVASTATIN 20 MG TAB PO SCH (08:37)
[2016-11-18] MEDS: EYE OD SCH ×2 (08:38→21:08)
[2016-11-18] MEDS: ZYLET OD SCH ×2 (08:38→21:08)
[2016-11-18] MEDS: ISOSORBIDE MON. (IMDUR) 60 MG XR TAB PO SCH (08:48)
--- NOTE | 2016-11-18 09:38 | ECGEPIP ---
Stationary ECG Study [facility] Test Date: 2016-11-17 Pat Name: PRASAD TERRY Department: Room: [place] [address] Gender: F Bingo Clerk: CALEB : 1955 Requested By: Donis Marshall Order Number: [id number] Reading MD: Sonu Cohen Measurements Intervals [place] Rate: 164 P: IA: 0 QRS: -12 QRSD: 91 T: 58 QT: 273 QTc: 452 Interpretive Statements Supraventricular irregular tachycardia, likely atrial fibrillation with rvr significant artifact Atrial fibrillation not noted in 9 previous tracings Inferior Q waves of uncertain significance Delayed anterior R wave progression Electronically Signed On 11-18-2016 9:38:36 EDT by Sonu Cohen
[2016-11-18] MEDS: valACYclovir HCL 500 MG TAB PO SCH ×2 (11:57→21:05)
[2016-11-18] MEDS: DULoxetine 20 MG CAP (CYMBALTA) PO SCH ×2 (11:57→21:04)
--- NOTE | 2016-11-18 12:51 | CCN ---
DATE: 11/18/2016 Patient is awake, alert, conversant, sitting in a chair. She states she feels much better. She uses BiPAP at home at 15/8 with a rate of 12 was 4 liters bled in with a diagnosis of not only obstructive but also of central apneas based on chart review. She is a patient of [facility]. She also has known COPD chronically on 4 liters of oxygen. She states her heart doctor is Dr. Cobb. She has no chest pain this morning. She believes her breathing is close to her baseline. She states she has not been using her BiPAP at home due to mask fitting. I will assist her with mask fitting in the hospital today and we have placed an order through [facility] for supplies. She denies any cough, fever, chills. No increase in her usual level of lower extremity edema. She had a bowel movement this morning. PHYSICAL EXAMINATION: Temperature is 97.6, pulse is 86, blood pressures 96/66 with a mean arterial pressure of 77, oxygen saturation is 98% on 0.40 FiO2 with a respiratory rate of 20. GENERAL: Awake, alert and oriented. Affect and mood are appropriate. She is speaking in full sentences without pausing for dyspnea. HEENT: There are a cranial facial abnormalities that appear chronic. Pupils are somewhat irregular suggesting prior surgery. Mucous membranes are moist. Tongue is midline. NECK : Supple. No tracheal deviation or mass. LYMPH: No cervical, supraclavicular, or axillary adenopathy. CARDIAC: Distant S1-S2. Irregularly irregular with minimal lower extremity edema and thromboembolic deterrent stockings (TEDS) and Dex's are in place. PULMONARY: There is basilar rales, approximately one-third of the bases, otherwise clear to auscultation without rhonchi or wheeze. Minimal dullness to percussion. No accessory muscle use. ABDOMEN: Soft, nontender, nondistended with hypoactive bowel sounds. No discernible mass or hepatosplenomegaly. EXTREMITIES: Some pitting edema of the lower extremities. TEDS and Dex's in place. Good radial pulse bilaterally. MUSCULOSKELETAL: Muscle tone appears normal for stated age. No evidence of fracture or joint effusion. NEUROLOGIC: No unilateral weakness, tremor or evidence of seizure activity. SKIN: Pale without rashes, jaundice, bruising. Laboratory evaluation shows a hemoglobin 12.3, hematocrit of 39.6, platelet count of 221, INR of 1.42 with a white blood cell count of 10.9. Blood cultures times two show no growth. Arterial blood gas shows a pH of 7.55, pCO2 of 54 and a pAO2 of 130. Last imaging was performed 11/16/2016 which was an angio CT showing bilateral pulmonary edema with bilateral pleural effusions and enlarged RV. IMPRESSION: 1. Acute on chronic respiratory failure, hypercarbic, hypoxic secondary to decompensated congestive heart failure, history of chronic COPD and untreated sleep apnea, both obstructive and central in nature. PLAN 1. Converted back to her usual settings of bilevel 15/8 with a rate of 12, 4 liters bled in. I have assisted with mask fitting and placing orders into her facility for replacement masks. She will followup with [facility] as scheduled. It is quite possible untreated sleep apnea could precipitate heart failure. 2. Chronic obstructive pulmonary disease. No evidence of exacerbation at this point in time. 3. Congestive heart failure. Managed per primary team. Will obtain chest x-ray today.
[2016-11-18] MEDS ORDERED: POTASSIUM CHLORIDE 10 MEQ SR TABLET PO ONE (13:00)
--- NOTE | 2016-11-18 13:51 | REP ---
Portable chest x-ray: Single view. History: CHF. Comparison chest x-ray: November 16, 2016. Findings: Moderate cardiomegaly is observed. EKG monitoring electrodes are seen. Pulmonary vasculature is less congested than on the study done 2 days ago. The pleural angles are sharp. No acute infiltrate is seen. Impression: Pulmonary vascular congestion is improved. Moderate cardiomegaly persists. No acute infiltrate. No definite effusion. Signed by Brody Lundberg MD 11/18/2016 04:41 P
[2016-11-18] MEDS: WARFARIN SOD 2 MG TAB PO SCH (17:39)
[2016-11-18] MEDS: ATENOLOL 50 MG TAB PO SCH (21:00)
[2016-11-18] MEDS: NORTRIPTYLINE 25 MG CAP PO SCH (21:07)
[2016-11-19] VITALS (7 sets, daily range): BP systolic 91–125; BP diastolic 51–69
[2016-11-19] MEDS: IPRATROPIUM 0.5MG/ALBUTEROL 2.5MG INH SOL UD 3ML (DUONEB)(J7620) NEB SCH ×4 (01:04→19:44)
[2016-11-19] MEDS: FUROSEMIDE 40 MG/4 ML VIAL (J1940) IV SCH ×3 (04:31→07:33)
[2016-11-19] MEDS: SLF 3 ML SYR IV SCH ×3 (04:31→22:00)
[2016-11-19 05:47] LABS: BASO % 0.3 % (0.0-1.0); EOS # 0.1 K/mm3 (0.0-0.50); EOS % 0.9 % (0.0-3.0); LARGE UNSTAINED CELL # 0.1 K/mm3 (0.0-0.4); LARGE UNSTAINED CELL % 0.9 % (0.0-4.0); LYMPH # 1.3 K/mm3 (1.5-4.5); LYMPH % 16.7 % (24.0-44.0); MEAN CORPUSCULAR HEMOGLOBIN 33.7 pg (27.0-33.0); MEAN CORPUSCULAR HGB CONC 31.6 g/dl (32.0-36.5); MEAN CORPUSCULAR VOLUME 106.4 fl (80.0-96.0); MONO # 0.5 K/mm3 (0.0-0.8); NEUTROPHILS # 5.5 K/mm3 (1.8-7.7); NEUTROPHILS % 74.1 % (36.0-66.0); PLATELET COUNT, AUTOMATED 253 k/mm3 (150-450); RED CELL DISTRIBUTION WIDTH 15.3 % (11.5-14.5); WHITE BLOOD COUNT 7.4 K/mm3 (4.0-10.0)
[2016-11-19 05:50] LABS: INR 1.47
[2016-11-19 06:09] LABS: ALBUMIN 3.2 GM/DL (3.2-5.2); ALBUMIN/GLOBULIN RATIO 0.74 (1.00-1.93); BILIRUBIN,TOTAL 0.6 MG/DL (0.2-1.0); CALCIUM LEVEL 10.1 MG/DL (8.5-10.1); CREATININE FOR GFR 1.31 MG/DL (0.55-1.02); GLOMERULAR FILTRATION RATE 44.4 (>51); POTASSIUM SERUM 4.5 MEQ/L (3.5-5.1); TOTAL PROTEIN 7.5 GM/DL (6.4-8.2)
[2016-11-19] MEDS: ENOXAPARIN 80 MG/0.8 ML SYRINGE (J1650) SC SCH ×2 (07:34→20:16)
[2016-11-19] MEDS: valACYclovir HCL 500 MG TAB PO SCH ×2 (08:40→20:16)
[2016-11-19] MEDS: MULTIVITAMINS/MINERALS THERAP 1 TAB PO SCH (08:40)
[2016-11-19] MEDS: CALCIUM/VITAMIN D 500 MG TAB PO SCH (08:40)
[2016-11-19] MEDS: DULoxetine 20 MG CAP (CYMBALTA) PO SCH ×2 (08:40→21:00)
[2016-11-19] MEDS: SPIRONOLACTONE 12.5MG PER 1/2 TABLET PO SCH (08:41)
[2016-11-19] MEDS: ISOSORBIDE MON. (IMDUR) 60 MG XR TAB PO SCH (08:41)
[2016-11-19] MEDS: ASPIRIN 81 MG ENTERIC TAB PO SCH (08:41)
[2016-11-19] MEDS: OMEPRAZOLE 20 MG CAP PO SCH ×2 (08:41→20:16)
[2016-11-19] MEDS: FENOFIBRATE 145 MG TAB (TRICOR) PO SCH (08:41)
[2016-11-19] MEDS: LISINOPRIL 10 MG TAB PO SCH (08:41)
[2016-11-19] MEDS: oxyBUTYnin 5 MG TAB PO SCH ×2 (08:41→20:16)
[2016-11-19] MEDS: POTASSIUM CHLORIDE 10 MEQ SR TABLET PO SCH (08:42)
[2016-11-19] MEDS: EYE OD SCH ×2 (08:42→20:18)
[2016-11-19] MEDS: ATORVASTATIN 20 MG TAB PO SCH (08:42)
[2016-11-19] MEDS: ZYLET OD SCH ×2 (08:42→20:18)
[2016-11-19] MEDS: DOCUSATE SODIUM 100 MG CAP PO SCH ×2 (08:42→20:16)
--- NOTE | 2016-11-19 10:49 | IPNPDOC ---
Subjective Date Seen The patient was seen on 11/19/16. Subjective Chief Complaint/HPI The patient is a 60-year-old female admitted with a reason for visit of Gastroenteritis And Colitis,Viral,Systolic And Nakita. Events since last encounter Has resumed baseline use of Bipap. Awake, alert, eating well. Converted to NSR overnight. rate controlled. Constitutional: Denies: Chills, Fever, Night Sweats Skin: Denies: Rash, Lesions, Breakdown Pulmonary: Reports: Dyspnea (chronic) Cardiovascular: Denies: Chest Pain, Palpitations, Orthopnea, Paroxysmal Noc. Dyspnea, Lt Headedness Gastrointestinal: Denies: Nausea, Vomiting, Abdominal Pain, Diarrhea, Constipation Genitourinary: Reports: Other Symptoms (Patel) Objective Physical Examination General Exam: Positive: Alert, Cooperative, No Acute Distress (talking persistently through resuscitative efforts) Eye Exam: Positive: Conjunctiva & lids normal, Negative: Sclera icteric ENT Exam: Positive: Mucous membr. moist/pink Neck Exam: Positive: Supple, Negative: Lymphadenopathy Chest Exam: Positive: Clear to auscultation, Other (on bilevel ventilation) Heart Exam: Positive: Rate Normal, Irregular Rhythm, Normal S1, Normal S2 Telemetry: Positive: Atrial fibrillation Abdomen Exam: Positive: Normal bowel sounds, Soft, Negative: Tenderness Extremity Exam: Negative: Edema Skin Exam: Positive: Nl turgor and temperature Psych Exam: Positive: Mood NL, Memory Intact, Oriented x 3 Assessment /Plan Problems (1) Acute on chronic respiratory failure with hypoxia and hypercapnia Status: Acute Discussed With: Cattle Dehorner, Patient Problem Text: 11/19/2016: On baseline Bipap settings. Ready for floor. Discussed Case with Pulmonology, in agreement for transfer from ICU to floor and anticipate DC within next few days. Unfortunately we have not been able to wean her off of bilevel ventilation. Dr. Hassan is assisting with this portion of her care. I appreciate his input. (2) Atrial fibrillation with rapid ventricular response Status: Acute Discussed With: Patient Problem Text: 11/19/2016: converted to NSR. Rate controlled. BP is soft, Lasix held. monitor. monitor HR. INR: 1.47. Warfarin 5 mg p ox 1 today. repeat INR in am. 11/18 - Atenolol 50 mg daily. Received a dose of amiodarone yesterday. HR currently 80s to 109. On Warfarin and Lovenox until INR therapeutic. INR 1.42 today. 11/17 - This is new for her as far as I can tell. She tells me she's had atrial fibrillation in the past. I do note that her atenolol was held last night in the emergency department for unclear reasons. I suspect that has something to do with why she is now in RVR. I'm going to start with giving her IV Lopressor and administering the oral atenolol she did not receive earlier. We'll see how things go. She is supposed to be on lifetime anticoagulation for her left ventricular mural thrombus. However, she is currently subtherapeutic as she's not been able to take her warfarin for the last several days because of her nausea and vomiting. I will change her to treatment doses of Lovenox until we can get her therapeutic on the warfarin. Update: After 2 doses of IV Lopressor approximately 15 minutes apart her pressure started getting soft (79/45). She remained asymptomatic, and continued to discuss her frustrations with the insurance companies regarding getting a new CPAP mask at this time. However, it became clear that further beta yayo was not going to be tolerated. Therefore, I gave her a one-time dose of 150 mg of amiodarone to see if we could convert her back to sinus rhythm. A couple hours later her rate was down in the 90s to 100s but she was still in atrial fibrillation. My suspicion is the oral atenolol, not the amiodarone had a positive effect. (3) Acute on chronic combined systolic (congestive) and diastolic (congestive) heart failure Status: Acute Response to Treatment: Improving Discussed With: Nurse, Patient Problem Text: 11/19/2016: Appears compensate after aggressive diuresis. Cr up to 1.33. On Spironolactone daily. Will DC Lasix, monitor I/O and adjust Spirolactone dosing if necessary. 11/18 - On Lasix 40 mg IV q4hrs. On Spironolactone 12.5 mg daily. 11/17 - She has diuresed some. Her congestive heart failure seems to be slowly heading toward a compensated state. We'll continue current regimen, monitor. (4) Gastroenteritis and colitis, viral Status: Resolved Response to Treatment: Improving Problem Text: Based on her hunger and request for orange popsicles while she is on BiPAP I think that her gastroenteritis is pretty well resolved. (5) Left ventricular mural thrombus Status: Chronic Problem Specific Plan: Repeat Labs Problem Text: 11/19/2016: Warfarin 5mg po x 1. Lovenox 80 mg SQ q 12 hrs. Her INR has not improved much today, however I suspect she's missed several doses of Coumadin. Additionally many of her oral medications have had to be delayed while here because she is on bilevel ventilation. We will continue to do what we can to try to get her anticoagulated once more. Meanwhile I will switch her to treatment doses of Lovenox. (6) Hypokalemia Status: Acute Problem Specific Plan: Monitor Clinically, Repeat Labs Problem Text: 11/19/2016: Potassium is 4.5 today. monitor. Scheduled to receive KCl 40 MEQ at 0900 am. Will order an additional 20 MEQ to be given 4 hrs later at 1pm. Plan/VTE VTE Prophylaxis Ordered?: Yes (Lovenox, warfarin, SCDs, teds) Plan/Urinary Catheter Reason for insertion/continuin: Critical Pt monitoring Plan Attending attestation: I saw and evaluated the patient, and I agree with the plan of care as discussed and document a by Liya Moctezuma. Patient is now on her home dose of oxygen, breathing well, and feels ready to go home. We'll plan on discharge 11/20/2016 if patient remains stable. Jemma Barnett MD VS, I&O, 24H, [place] Vital Signs/I&O Vital Signs Date Time Temp Pulse Resp B/P (MAP) Pulse Ox O2 Delivery O2 Flow Rate FiO2 11/19/16 08:41 109/56 11/19/16 04:00 BIPAP/CPAP 35 11/19/16 04:00 98.5 70 20 98 11/18/16 20:56 4.0 I&O- Last 24 Hours up to 6 AM 11/19/16 06:00 Intake Total 1260 ml Output Total 1795 ml Balance -535 ml Laboratory Data 24H LABS Laboratory Tests 2 11/19/16 05:22: White Blood Count 7.4, Red Blood Count 3.60L, Hemoglobin 12.1, Hematocrit 38.4, Mean Corpuscular Volume 106.4H, Mean Corpuscular Hemoglobin 33.7H, Mean Corpuscular Hemoglobin Concent 31.6L, Red Cell Distribution Width 15.3H, Platelet Count 253, Neutrophils (%) (Auto) 74.1H, Lymphocytes (%) (Auto) 16.7L, Monocytes (%) (Auto) 7.0H, Eosinophils (%) (Auto) 0.9, Basophils (%) (Auto) 0.3 , Neutrophils # (Auto) 5.5, Lymphocytes # (Auto) 1.3L, Monocytes # (Auto) 0.5, Eosinophils # (Auto) 0.1, Basophils # (Auto) 0.0, Large Unclassified Cells % 0.9 , Large Unclassified Cells # 0.1, Prothrombin Time 17.9H, Prothromb Time International Ratio 1.47, Anion Gap 2L, Glomerular Filtration Rate 44.4L, Blood Urea Nitrogen 36H, Creatinine 1.31H, Sodium Level 138, Potassium Level 4.5#, Chloride Level 86L, Carbon Dioxide Level 50H, Calcium Level 10.1, Aspartate Amino Transf (AST/SGOT) 15, Alanine Aminotransferase (ALT/SGPT) 27, Alkaline Phosphatase 54, Total Bilirubin 0.6, Total Protein 7.5, Albumin 3.2, Albumin/ Globulin Ratio 0.74L CBC/BMP Laboratory Tests 11/19/16 05:22 Red Blood Count 3.60 L, Mean Corpuscular Volume 106.4 H, Mean Corpuscular Hemoglobin 33.7 H, Mean Corpuscular Hemoglobin Concent 31.6 L, Red Cell Distribution Width 15.3 H, Neutrophils (%) (Auto) 74.1 H, Lymphocytes (%) (Auto ) 16.7 L, Monocytes (%) (Auto) 7.0 H, Eosinophils (%) (Auto) 0.9, Basophils (%) (Auto) 0.3, Neutrophils # (Auto) 5.5, Lymphocytes # (Auto) 1.3 L, Monocytes # ( Auto) 0.5, Eosinophils # (Auto) 0.1, Basophils # (Auto) 0.0, Calcium Level 10.1 , Aspartate Amino Transf (AST/SGOT) 15, Alanine Aminotransferase (ALT/SGPT) 27, Alkaline Phosphatase 54, Total Bilirubin 0.6, Total Protein 7.5, Albumin 3.2 Microbiology Microbiology 11/16/16 Blood Culture - Preliminary, Resulted No Growth after 72 hours. All specime... 11/16/16 Blood Culture - Preliminary, Resulted No Growth after 72 hours. All specime... Teri Moctezuma Nov 19, 2016 10:49 JEMMA BARNETT MD Nov 19, 2016 18:15
[2016-11-19] MEDS ORDERED: WARFARIN SOD 5 MG TAB PO ONE (17:00)
[2016-11-19] MEDS: ATENOLOL 50 MG TAB PO SCH (20:16)
[2016-11-19] MEDS: NORTRIPTYLINE 25 MG CAP PO SCH (20:16)
[2016-11-20] MEDS: IPRATROPIUM 0.5MG/ALBUTEROL 2.5MG INH SOL UD 3ML (DUONEB)(J7620) NEB SCH ×4 (00:51→19:37)
[2016-11-20] MEDS: SLF 3 ML SYR IV SCH ×3 (05:00→20:59)
[2016-11-20 06:00] VITALS: BP 96/64
[2016-11-20 07:24] LABS: BASO % 0.1 % (0.0-1.0); EOS # 0.1 K/mm3 (0.0-0.50); EOS % 1.6 % (0.0-3.0); LARGE UNSTAINED CELL # 0.1 K/mm3 (0.0-0.4); LARGE UNSTAINED CELL % 1.5 % (0.0-4.0); LYMPH # 0.8 K/mm3 (1.5-4.5); LYMPH % 12.4 % (24.0-44.0); MEAN CORPUSCULAR HEMOGLOBIN 34.3 pg (27.0-33.0); MEAN CORPUSCULAR HGB CONC 31.9 g/dl (32.0-36.5); MEAN CORPUSCULAR VOLUME 107.6 fl (80.0-96.0); MONO # 0.4 K/mm3 (0.0-0.8); MONO % 5.8 % (0.0-5.0); NEUTROPHILS # 5.2 K/mm3 (1.8-7.7); NEUTROPHILS % 78.7 % (36.0-66.0); PLATELET COUNT, AUTOMATED 252 k/mm3 (150-450); RED CELL DISTRIBUTION WIDTH 15.1 % (11.5-14.5); WHITE BLOOD COUNT 6.6 K/mm3 (4.0-10.0)
[2016-11-20 07:35] LABS: ALBUMIN 2.8 GM/DL (3.2-5.2); ALBUMIN/GLOBULIN RATIO 0.7 (1.00-1.93); BILIRUBIN,TOTAL 0.4 MG/DL (0.2-1.0); CALCIUM LEVEL 9.4 MG/DL (8.5-10.1); CREATININE FOR GFR 1.09 MG/DL (0.55-1.02); GLOMERULAR FILTRATION RATE 54.9 (>51); POTASSIUM SERUM 4.1 MEQ/L (3.5-5.1); TOTAL PROTEIN 6.8 GM/DL (6.4-8.2)
[2016-11-20 07:46] LABS: ADD MORPHOLOGY? YES
[2016-11-20 07:48] LABS: HYPOCHROMASIA 1+
[2016-11-20] MEDS: valACYclovir HCL 500 MG TAB PO SCH ×2 (08:42→20:58)
[2016-11-20] MEDS: ENOXAPARIN 80 MG/0.8 ML SYRINGE (J1650) SC SCH ×2 (08:42→20:57)
[2016-11-20] MEDS: MULTIVITAMINS/MINERALS THERAP 1 TAB PO SCH (08:43)
[2016-11-20] MEDS: ASPIRIN 81 MG ENTERIC TAB PO SCH (08:43)
[2016-11-20] MEDS: DOCUSATE SODIUM 100 MG CAP PO SCH ×2 (08:43→20:58)
[2016-11-20] MEDS: oxyBUTYnin 5 MG TAB PO SCH ×2 (08:43→20:58)
[2016-11-20] MEDS: CALCIUM/VITAMIN D 500 MG TAB PO SCH (08:43)
[2016-11-20] MEDS: FENOFIBRATE 145 MG TAB (TRICOR) PO SCH (08:43)
[2016-11-20] MEDS: ATORVASTATIN 20 MG TAB PO SCH (08:44)
[2016-11-20] MEDS: LISINOPRIL 10 MG TAB PO SCH (08:44)
[2016-11-20] MEDS: ISOSORBIDE MON. (IMDUR) 60 MG XR TAB PO SCH (08:45)
[2016-11-20] MEDS: SPIRONOLACTONE 50 MG TAB PO SCH (08:46)
[2016-11-20] MEDS: OMEPRAZOLE 20 MG CAP PO SCH ×2 (08:46→20:58)
[2016-11-20] MEDS: POTASSIUM CHLORIDE 10 MEQ SR TABLET PO SCH (08:46)
[2016-11-20] MEDS: EYE OD SCH ×2 (08:47→20:59)
[2016-11-20] MEDS: ZYLET OD SCH ×2 (08:47→20:59)
[2016-11-20] MEDS ORDERED: VITAMIN D 50,000 UNITS CAPSULE (ERGOCALCIFEROL 1.25MG) PO SCH (09:00)
[2016-11-20] MEDS: DULoxetine 20 MG CAP (CYMBALTA) PO SCH ×2 (10:28→20:57)
--- NOTE | 2016-11-20 11:04 | IPNPDOC ---
Subjective Date Seen The patient was seen on 11/20/16. Subjective Chief Complaint/HPI The patient is a 60-year-old female admitted with a reason for visit of Gastroenteritis And Colitis,Viral,Systolic And Nakita. Events since last encounter Pt states she is feeling better and breathing better. Denies CP, Abd pain. Constitutional: Denies: Chills, Fever Pulmonary: Reports: Dyspnea Cardiovascular: Denies: Chest Pain Gastrointestinal: Denies: Nausea, Vomiting, Abdominal Pain Objective Physical Examination General Exam: Positive: Alert, Cooperative, No Acute Distress (talking persistently through resuscitative efforts) Eye Exam: Positive: Conjunctiva & lids normal, Negative: Sclera icteric ENT Exam: Positive: Mucous membr. moist/pink Neck Exam: Positive: Supple, Negative: Lymphadenopathy Chest Exam: Positive: Clear to auscultation, Other (on bilevel ventilation) Heart Exam: Positive: Rate Normal, Irregular Rhythm, Normal S1, Normal S2 Telemetry: Positive: Atrial fibrillation Abdomen Exam: Positive: Normal bowel sounds, Soft, Negative: Tenderness Extremity Exam: Negative: Edema Skin Exam: Positive: Nl turgor and temperature Psych Exam: Positive: Mood NL, Memory Intact, Oriented x 3 Assessment /Plan Problems (1) Acute on chronic respiratory failure with hypoxia and hypercapnia Status: Acute Discussed With: Health Worker, Patient Problem Text: 11/20 - Bipap 11/19/2016: On baseline Bipap settings. Ready for floor. Discussed Case with Pulmonology, in agreement for transfer from ICU to floor and anticipate DC within next few days. Unfortunately we have not been able to wean her off of bilevel ventilation. Dr. Hassan is assisting with this portion of her care. I appreciate his input. (2) Atrial fibrillation with rapid ventricular response Status: Acute Discussed With: Patient Problem Text: 11/20 - Rate controlled on Atenolol 50 mg daily. Getting warfarin. Received one time dose of 5 mg yesterday. Had been getting 2 mg daily. No INR for today. Will order INR now. Will also recheck INR in AM. On Lovenox while subtherapeutic. 11/19/2016: converted to NSR. Rate controlled. BP is soft, Lasix held. monitor. monitor HR. INR: 1.47. Warfarin 5 mg p ox 1 today. repeat INR in am. 11/18 - Atenolol 50 mg daily. Received a dose of amiodarone yesterday. HR currently 80s to 109. On Warfarin and Lovenox until INR therapeutic. INR 1.42 today. 11/17 - This is new for her as far as I can tell. She tells me she's had atrial fibrillation in the past. I do note that her atenolol was held last night in the emergency department for unclear reasons. I suspect that has something to do with why she is now in RVR. I'm going to start with giving her IV Lopressor and administering the oral atenolol she did not receive earlier. We'll see how things go. She is supposed to be on lifetime anticoagulation for her left ventricular mural thrombus. However, she is currently subtherapeutic as she's not been able to take her warfarin for the last several days because of her nausea and vomiting. I will change her to treatment doses of Lovenox until we can get her therapeutic on the warfarin. Update: After 2 doses of IV Lopressor approximately 15 minutes apart her pressure started getting soft (79/45). She remained asymptomatic, and continued to discuss her frustrations with the insurance companies regarding getting a new CPAP mask at this time. However, it became clear that further beta yayo was not going to be tolerated. Therefore, I gave her a one-time dose of 150 mg of amiodarone to see if we could convert her back to sinus rhythm. A couple hours later her rate was down in the 90s to 100s but she was still in atrial fibrillation. My suspicion is the oral atenolol, not the amiodarone had a positive effect. (3) Acute on chronic combined systolic (congestive) and diastolic (congestive) heart failure Status: Acute Response to Treatment: Improving Discussed With: Nurse, Patient Problem Text: 11/20 - Cr 1.09. On Spironlactone 50 mg daily. Lasix was stopped. 11/19/2016: Appears compensate after aggressive diuresis. Cr up to 1.33. On Spironolactone daily. Will DC Lasix, monitor I/O and adjust Spirolactone dosing if necessary. 11/18 - On Lasix 40 mg IV q4hrs. On Spironolactone 12.5 mg daily. 11/17 - She has diuresed some. Her congestive heart failure seems to be slowly heading toward a compensated state. We'll continue current regimen, monitor. (4) Gastroenteritis and colitis, viral Status: Resolved Response to Treatment: Improving Problem Text: Based on her hunger and request for orange popsicles while she is on BiPAP I think that her gastroenteritis is pretty well resolved. (5) Left ventricular mural thrombus Status: Chronic Problem Specific Plan: Repeat Labs Problem Text: 11/20 - Getting warfarin. Received one time dose of 5 mg yesterday. Had been getting 2 mg daily. No INR for today. Will order INR now. Will also recheck INR in AM. On Lovenox 80 mg SQ q12hrs while subtherapeutic. 11/19/2016: Warfarin 5mg po x 1. Lovenox 80 mg SQ q 12 hrs. Her INR has not improved much today, however I suspect she's missed several doses of Coumadin. Additionally many of her oral medications have had to be delayed while here because she is on bilevel ventilation. We will continue to do what we can to try to get her anticoagulated once more. Meanwhile I will switch her to treatment doses of Lovenox. (6) Hypokalemia Status: Acute Problem Specific Plan: Monitor Clinically, Repeat Labs Problem Text: 11/20 - K 4.1. 11/19/2016: Potassium is 4.5 today. monitor. Scheduled to receive KCl 40 MEQ at 0900 am. Will order an additional 20 MEQ to be given 4 hrs later at 1pm. Plan/VTE VTE Prophylaxis Ordered?: Yes (Lovenox, warfarin, SCDs, teds) Plan/Urinary Catheter Reason for insertion/continuin: Critical Pt monitoring VS, I&O, 24H, Fishbone Vital Signs/I&O Vital Signs Date Time Temp Pulse Resp B/P (MAP) Pulse Ox O2 Delivery O2 Flow Rate FiO2 11/20/16 08:45 96/64 11/20/16 06:00 98.1 72 18 92 Nasal Cannula 4.0 11/19/16 04:00 35 I&O- Last 24 Hours up to 6 AM 11/20/16 05:59 Intake Total 1560 ml Output Total 1750 ml Balance -190 ml Laboratory Data 24H LABS Laboratory Tests 2 11/20/16 06:48: White Blood Count 6.6, Red Blood Count 3.54L, Hemoglobin 12.1, Hematocrit 38.1, Mean Corpuscular Volume 107.6H, Mean Corpuscular Hemoglobin 34.3H, Mean Corpuscular Hemoglobin Concent 31.9L, Red Cell Distribution Width 15.1H, Platelet Count 252, Neutrophils (%) (Auto) 78.7H, Lymphocytes (%) (Auto) 12.4L, Monocytes (%) (Auto) 5.8H, Eosinophils (%) (Auto) 1.6, Basophils (%) (Auto) 0.1 , Neutrophils # (Auto) 5.2, Lymphocytes # (Auto) 0.8L, Monocytes # (Auto) 0.4, Eosinophils # (Auto) 0.1, Basophils # (Auto) 0.0, Large Unclassified Cells % 1.5 , Large Unclassified Cells # 0.1, Platelet Estimate NORMAL, Hypochromasia 1+, Basophilic Stippling 1+, Macrocytosis 1+, Anion Gap 1L, Glomerular Filtration Rate 54.9, Blood Urea Nitrogen 37H, Creatinine 1.09H, Sodium Level 137, Potassium Level 4.1, Chloride Level 93L, Carbon Dioxide Level 43H, Calcium Level 9.4, Aspartate Amino Transf (AST/SGOT) 15, Alanine Aminotransferase (ALT/ SGPT) 24, Alkaline Phosphatase 52, Total Bilirubin 0.4, Total Protein 6.8, Albumin 2.8L, Albumin/Globulin Ratio 0.70L CBC/BMP Laboratory Tests 11/20/16 06:48 Red Blood Count 3.54 L, Mean Corpuscular Volume 107.6 H, Mean Corpuscular Hemoglobin 34.3 H, Mean Corpuscular Hemoglobin Concent 31.9 L, Red Cell Distribution Width 15.1 H, Neutrophils (%) (Auto) 78.7 H, Lymphocytes (%) (Auto ) 12.4 L, Monocytes (%) (Auto) 5.8 H, Eosinophils (%) (Auto) 1.6, Basophils (%) (Auto) 0.1, Neutrophils # (Auto) 5.2, Lymphocytes # (Auto) 0.8 L, Monocytes # ( Auto) 0.4, Eosinophils # (Auto) 0.1, Basophils # (Auto) 0.0, Calcium Level 9.4, Aspartate Amino Transf (AST/SGOT) 15, Alanine Aminotransferase (ALT/SGPT) 24, Alkaline Phosphatase 52, Total Bilirubin 0.4, Total Protein 6.8, Albumin 2.8 L Microbiology Microbiology 11/16/16 Blood Culture - Preliminary, Resulted No Growth after 72 hours. All specime... 11/16/16 Blood Culture - Preliminary, Resulted No Growth after 72 hours. All specime... Nikos Badillo Nov 20, 2016 11:04
[2016-11-20 11:34] LABS: INR 1.64
[2016-11-20] MEDS ORDERED: WARFARIN SOD 3 MG TAB PO SCH (17:00)
[2016-11-20] MEDS: ATENOLOL 50 MG TAB PO SCH (20:58)
[2016-11-20] MEDS: NORTRIPTYLINE 25 MG CAP PO SCH (20:59)
[2016-11-20 22:00] VITALS: BP 113/61
[2016-11-21] MEDS: IPRATROPIUM 0.5MG/ALBUTEROL 2.5MG INH SOL UD 3ML (DUONEB)(J7620) NEB SCH ×2 (00:59→08:15)
[2016-11-21] MEDS: SLF 3 ML SYR IV SCH (05:21)
[2016-11-21 06:00] VITALS: BP 110/53
[2016-11-21] MEDS ORDERED: IPRASOL4 NEB (07:44)
[2016-11-21] MEDS ORDERED: COUM1TAB19 PO (07:44)
[2016-11-21 08:23] LABS: BASO % 0.2 % (0.0-1.0); EOS # 0.2 K/mm3 (0.0-0.50); EOS % 2.8 % (0.0-3.0); LARGE UNSTAINED CELL # 0.1 K/mm3 (0.0-0.4); LARGE UNSTAINED CELL % 1.5 % (0.0-4.0); LYMPH # 0.9 K/mm3 (1.5-4.5); LYMPH % 13.2 % (24.0-44.0); MEAN CORPUSCULAR HEMOGLOBIN 33.5 pg (27.0-33.0); MEAN CORPUSCULAR HGB CONC 31.3 g/dl (32.0-36.5); MONO # 0.4 K/mm3 (0.0-0.8); MONO % 6.7 % (0.0-5.0); NEUTROPHILS # 4.8 K/mm3 (1.8-7.7); NEUTROPHILS % 75.6 % (36.0-66.0); PLATELET COUNT, AUTOMATED 231 k/mm3 (150-450); RED CELL DISTRIBUTION WIDTH 15.2 % (11.5-14.5); WHITE BLOOD COUNT 6.3 K/mm3 (4.0-10.0)
[2016-11-21 08:25] LABS: ADD MORPHOLOGY? YES
[2016-11-21 08:31] LABS: INR 1.67
[2016-11-21 08:40] LABS: ALBUMIN/GLOBULIN RATIO 0.88 (1.00-1.93); ALKALINE PHOSPHATASE 56 U/L (45-117); ALT/SGPT 25 U/L (12-78); ANION GAP 5 MEQ/L (8-16); AST/SGOT 17 U/L (15-37); BILIRUBIN,TOTAL 0.4 MG/DL (0.2-1.0); BLOOD UREA NITROGEN 21 MG/DL (7-18); CALCIUM LEVEL 8.9 MG/DL (8.5-10.1); CARBON DIOXIDE LEVEL 37 MEQ/L (21-32); CHLORIDE LEVEL 96 MEQ/L (98-107); CREATININE FOR GFR 0.85 MG/DL (0.55-1.02); GLOMERULAR FILTRATION RATE > 60.0 (>51); GLUCOSE, FASTING 109 MG/DL (70-105); POTASSIUM SERUM 4.9 MEQ/L (3.5-5.1); SODIUM LEVEL 138 MEQ/L (136-145); TOTAL PROTEIN 6.4 GM/DL (6.4-8.2)
[2016-11-21] MEDS: ZYLET OD SCH (09:00)
[2016-11-21] MEDS: EYE OD SCH (09:00)
[2016-11-21] MEDS: valACYclovir HCL 500 MG TAB PO SCH (09:37)
[2016-11-21] MEDS: ISOSORBIDE MON. (IMDUR) 60 MG XR TAB PO SCH (09:37)
[2016-11-21] MEDS: ENOXAPARIN 80 MG/0.8 ML SYRINGE (J1650) SC SCH (09:37)
[2016-11-21] MEDS: FENOFIBRATE 145 MG TAB (TRICOR) PO SCH (09:38)
[2016-11-21] MEDS: ASPIRIN 81 MG ENTERIC TAB PO SCH (09:38)
[2016-11-21] MEDS: DULoxetine 20 MG CAP (CYMBALTA) PO SCH (09:38)
[2016-11-21] MEDS: DOCUSATE SODIUM 100 MG CAP PO SCH (09:38)
[2016-11-21] MEDS: MULTIVITAMINS/MINERALS THERAP 1 TAB PO SCH (09:38)
[2016-11-21] MEDS: SPIRONOLACTONE 50 MG TAB PO SCH (09:38)
[2016-11-21] MEDS: OMEPRAZOLE 20 MG CAP PO SCH (09:38)
[2016-11-21] MEDS: CALCIUM/VITAMIN D 500 MG TAB PO SCH (09:38)
[2016-11-21 09:39] VITALS: BP 123/63
[2016-11-21] MEDS: oxyBUTYnin 5 MG TAB PO SCH (09:39)
[2016-11-21] MEDS: LISINOPRIL 10 MG TAB PO SCH (09:39)
[2016-11-21] MEDS: POTASSIUM CHLORIDE 10 MEQ SR TABLET PO SCH (09:41)
[2016-11-21] MEDS: ATORVASTATIN 20 MG TAB PO SCH (09:41)
--- NOTE | 2016-11-26 22:57 | DS.PDOC ---
Discharge Summary General Date of Admission Nov 16, 2016 at 12:08 Date of Discharge November 21, 2016 Primary Care Physician: Nando Lal MD Attending Physician: ANIYAH KING DO Specialist/Consultants Involve: NATA CHRISTINE Specialist/Consultants Involve Dr. Murtaza Hassan Discharge Summary PROCEDURES PERFORMED DURING STAY: echocargiogram, read as: 1. Study is of limited technical quality. 2. Normal left ventricular (LV) size with mild LVH and overall probably normal LV systolic function. Grade 1 diastolic dysfunction. 3. No significant valvular disease. 4. Very high central venous pressure. 5. Unable to estimate pulmonary artery pressure. ADMITTING DIAGNOSES: 1. Acute and chronic respiratory failure with hypoxia 2. Acute and chronic respiratory failure with hypercapnia 3. Acute on chronic combined systolic and diastolic congestive heart failure 4. Gastroenteritis and colitis, viral 5. Obstructive sleep apnea (adult 6. Chronic anticoagulation DISCHARGE DIAGNOSES: 1. acute on chronic hypoxic and hypercapnic respiratory failure 2. acute on chronic diastolic congestive heartfailure 3. obstructive sleep apnea 4. gastroenteritis 5. atrial fibrillation with RVR 6. hypokalemia COMPLICATIONS/CHIEF COMPLAINT: Gastroenteritis And Colitis,Viral,Systolic And Nakita. HISTORY OF PRESENT ILLNESS: Ngozi is a patient of Dr. Lal'elliot who presented to the [facility] emergency department for treatment this morning. 60 year old female presents with c/o HPI for ~3 days of nausea and not feeling well. She's not been eating well because of this. She reports her grandchildren have had strep throat and viral gastroenteritis lately. She has chronic respiratory failure and is on 4 L of oxygen via nasal cannula chronically. When she came into the emergency department this morning she was noted to be in the low 80%s. When questioned further she reports she is maybe a little more short of breath than usual, but this was not a major part of her initial complaint. During her workup in the ED she was found to be in acute on chronic respiratory failure, felt to be secondary to congestive heart failure and possibly precipitated by gastroenteritis. HOSPITAL COURSE: Patient was admitted to the ICU on bilevel ventilation per critical care, and diuresis to treat her CHF. The next morning she was found to be in atrial fibrillation with RVR, which she did tolerate relatively well. She was treated with IV Lopressor and amiodarone, and converted back to NSR the following day. (She remained in sinus for the duration of her hospitalization. ) It turned out that she had not been compliant with her CPAP as an outpatient as she was having trouble with her mask, and Dr. Christine fit her with one during her hospitalization. She expressed to me that she thought this mask was working well, and she used it during the rest of her hospitalization while sleeping. (Dr. Christine suggested that CPAP noncompliance may have been responsible for her CHF.) She clinically improved, and was eating well. PT cleared her for DC in the afternoon of November 20, and she was discharged the next morning. Her anticoagulation was subtherapeutic during her hospitalization, and she was anticoagulated with Lovenox while her warfarin was restarted. Her INR increased , but slowly, and she had a couple higher doses of warfarin to try and hasten her improvement. Upon review of her chart, she had been placed on 2 mg of warfarin instead of her home 3, and her warfarin dose was increased to her appropriate home dose. DISCHARGE MEDICATIONS: Please see below. ALLERGIES: Please see below. PHYSICAL EXAMINATION ON DISCHARGE: VITAL SIGNS: Please see below. GENERAL: chronically ill appearin female in no acute distress, on NC O2 HEENT: MMM NECK: supple, no JVD CARDIOVASCULAR EXAMINATION: regular rate and rhythm RESPIRATORY EXAMINATION: unlabored, CTAB ABDOMINAL EXAMINATION: BS soft, nontender and nondistended EXTREMITIES: no edema SKIN: intact no rash NEUROLOGICAL EXAMINATION: nonfocal PSYCHIATRIC EXAMINATION: appropriate mood and affect LABORATORY DATA: Please see below. IMAGING: Chest X ray 11/16/2016 showed 1. Chronic interstitial fibrosis. 2. There are patchy densities in the lungs, consistent with bilateral infiltrates or edema. 3. Cardiomegaly. Follow up Chest X ray 11/18 showed resolution of infiltrates. Chest CT 11/16/2016 showed 1. There is no pulmonary embolism. 2. Small bilateral infiltrates, greater on the left than on the right. 3. Small left pleural effusion. 4. Mediastinal adenopathy. 5. Cholelithiasis. PROGNOSIS: guarded ACTIVITY: [As tolerated]. DIET: cardiac DISCHARGE PLAN: home, with follow up with Dr. Lal within a week. DISPOSITION: Home Health Service. DISCHARGE INSTRUCTIONS: 1. Take all medications as prescribed. 2. Use CPAP when sleeping 3. Seek urgent medical attention for fever or shortness of breath ITEMS TO FOLLOWUP ON ON OUTPATIENT: 1. CPAP compliance 2. INR DISCHARGE CONDITION: [Stable]. TIME SPENT ON DISCHARGE: Greater than 20 minutes. Vital Signs/I&Os Vital Signs Date Time Temp Pulse Resp B/P (MAP) Pulse Ox O2 Delivery O2 Flow Rate FiO2 11/21/16 09:39 123/63 11/21/16 08:00 Nasal Cannula 4.0 11/21/16 06:00 98.5 68 16 96 Microbiology Microbiology 11/16/16 Blood Culture - Final, Complete NO GROWTH AFTER 5 DAYS 11/16/16 Blood Culture - Final, Complete NO GROWTH AFTER 5 DAYS Discharge Medications Scheduled (Zylet 0.5-0.3 %) 1 Silvia Silvia, 1 DROP OD BID, (Reported) Aspirin (Aspirin EC) 81 Mg Tabec, 81 MG PO DAILY, (Reported) Atenolol (Atenolol) 50 Mg Tab, 50 MG PO QHS, (Reported) Atorvastatin Calcium (Atorvastatin Calcium) 80 Mg Tab, 80 MG PO DAILY, (Reported ) Calcium/Vitamin D (Calcium 600 + D 600-400 mg-Unit) 1 Tab Tab, 1 TAB PO DAILY, ( Reported) Cyanocobalamin (Cyanocobalamin) 1,000 Mcg/1 Ml Inj, 1,000 MCG IM QMONTH, ( Reported) Duloxetine HCl (Cymbalta) 20 Mg Cap, 40 MG PO BID, (Reported) Fenofibrate (Fenofibrate) 145 Mg Tab, 145 MG PO DAILY, (Reported) Ferrous Sulfate (Ferrous Sulfate) 325 Mg Tab, 325 MG PO BID, (Reported) Furosemide (Furosemide) 40 Mg Tab, 40 MG PO QAM, (Reported) Furosemide (Furosemide) 20 Mg Tab, 20 MG PO QPM, (Reported) Isosorbide Mononitrate (Isosorbide Mononitrate ER) 60 Mg Tab, 60 MG PO DAILY, ( Reported) Lisinopril (Lisinopril) 10 Mg Tab, 10 MG PO DAILY, (Reported) Multivitamins (Multivitamin Adults) 1 Tab Tab, 1 TAB PO DAILY, (Reported) Nortriptyline HCl (Nortriptyline HCl) 25 Mg Cap, 25 MG PO QHS, (Reported) Omeprazole (Omeprazole) 20 Mg Cap, 20 MG PO BID, (Reported) Oxybutynin Chloride (Oxybutynin Chloride) 5 Mg Tab, 5 MG PO BID, (Reported) Spironolactone (Spironolactone) 25 Mg Tab, 12.5 MG PO DAILY, (Reported) Valacyclovir Hydrochloride (Valtrex) 1 Gm Tab, 1 GM PO BID, (Reported) Vitamin D (Drisdol) 50,000 Unit Cap, 50,000 UNIT PO QWEEK, (Reported) MONDAYS Warfarin Sod (Warfarin Sodium) 2 Mg Tab, 2 MG PO QPM, (Reported) Warfarin Sod (Coumadin) 3 Mg Tab, 3 MG PO DAILY@17 Scheduled PRN Acetaminophen (Acetaminophen) 325 Mg Tab, 650 MG PO Q4H PRN for PAIN, (Reported) Albuterol/Ipratropium (Ipratropium [place]/Albut 0.5-2.5 (3) mg/3Ml) 1 Marlene Marlene, 3 ML NEB Q6HP PRN for DYSPNEA Nitroglycerin (Nitrostat) 0.4 Mg Subl, 0.4 MG SL NITRO PRN for CHEST PAIN, ( Reported) Allergies Coded Allergies: Topiramate (Verified Allergy, Unknown, 11/16/16) Morphine (Verified Adverse Reaction, Mild, NAUSEA, 09/15/12) ANIYAH KING DO Nov 26, 2016 22:57
== END 2016-11-21 11:08 | disposition home health service (06) | DRG 291 ==
LOC: EDBD 07:52 → M ED 08:59 → M ED INP 12:08 → M ICU 11-17 02:42 → M MS5PR 11-19 12:19
PROVIDERS: ADMIT Family Medicine; ATTEND Family Medicine
PROC: 5A09457 Assistance with Respiratory Ventilation, 24-96 Consecutive Hours, Continuous Positive Airway Pressure (ICD-10-PCS; principal; 2016-11-16)
DX: I50.43 Acute on chronic combined systolic (congestive) and diastolic (congestive) heart failure (principal); J96.21 Acute and chronic respiratory failure with hypoxia; J96.22 Acute and chronic respiratory failure with hypercapnia; A08.4 Viral intestinal infection, unspecified; G47.33 Obstructive sleep apnea (adult) (pediatric); I48.91 Unspecified atrial fibrillation; E87.6 Hypokalemia; J44.9 Chronic obstructive pulmonary disease, unspecified; Z99.81 Dependence on supplemental oxygen; Z99.89 Dependence on other enabling machines and devices; Z91.19 Patient's noncompliance with other medical treatment and regimen; Z79.82 Long term (current) use of aspirin; Z79.01 Long term (current) use of anticoagulants; Z79.899 Other long term (current) drug therapy; Z88.5 Allergy status to narcotic agent; Z88.8 Allergy status to other drugs, medicaments and biological substances; Z86.73 Personal history of transient ischemic attack (TIA), and cerebral infarction without residual deficits; I25.2 Old myocardial infarction